=== PATIENT | female | born 1965 | race Caucasian/White ===

== ENCOUNTER 2018-10-25 22:06 | Emergency (ER) | payer MEDICARE, MEDICAID, SELFPAY ==
[2018-10-25 22:10] VITALS: BP 134/71; PULSE 78; RESP 16; TEMP 37; O2SAT 94; BMI 29.3
--- NOTE | 2018-10-25 22:42 | EKG12_ITS ---
Test Reason : CP Blood Pressure : / mmHG Vent. Rate : 083 BPM Atrial Rate : 083 BPM P-R Int : 170 ms QRS Dur : 088 ms QT Int : 400 ms P-R-T Axes : 078 076 103 degrees QTc Int : 470 ms Sinus rhythm with frequent Premature ventricular complexes Nonspecific T wave abnormality Abnormal ECG Confirmed by CHRIS NEWSOME, GODFREY ([id number]), medical editor TORSTEN JOHN ([id number]) on 10/28/2018 1:14:23 PM Referred By: PRASHANT Confirmed By:GODFREY PEREZ MD
--- NOTE | 2018-10-25 22:43 | ED.VIS.GEN ---
History of Present Illness Chief Complaint: Syncope Informant: Patient, Family, Significant Other Onset: Today - JPTA Context: Sudden Onset - w/ emotional distress Timing: Intermittent, Lasts - unk -- relatively brief Quality: felt lightheaded, like I was going to have a seizure, then transient LOC Location: general Current Severity: gone Maximum Severity: Moderate Worsened by: n/a Relieved by: n/a Associated Symptoms: none Narrative: Patient was in a verbal altercation with a neighbor, started feeling lightheaded like she was can have a seizure, as she was very upset and then collapsed. Her was not present at the time to witness this, but states he heard her collapse and came to where she was found her basically sleeping and nonresponsive on the floor, similar to prior seizures and postictal periods. He states within 10 minutes or so she was awake. EMS brought her to the hospital as they were called. States she takes Keppra for seizure disorders, has had breakthrough seizures from emotional distress in the past. She takes her medication twice daily and has had both doses today. No missed doses recently. No sleep deprivation or other illness. She is a smoker and denies using any other drugs. She feels fine now. Prior similar symptoms: Yes Recent Illness/Hospitalization: No Capacity - Capacity Assessment Tool Can the patient make a choice & communicate that choice?: Yes Can the patient understand benefits, risks and alternatives?: Yes Can the patient make a logical, rational choice?: Yes Is the choice the patient makes consistent w/ their values?: Yes Is there an impending, emergent risk to the patient?: No - Past Medical History (1) Seizure disorder Status: Chronic (2) Chronic back pain Status: Chronic (3) History of hypercholesterolemia Status: Chronic (4) Hx of coronary artery disease Status: Chronic Comment: Status post CABG in 2007; following up with Dr. Gallardo (5) Hypertension Status: Chronic Past Medical History - Allergies and Home Meds Allergies/Adverse Reactions: Allergies codeine Adverse Reaction (Verified 08/22/15 23:53) Vomiting Primary Care Physician: Joseph Ortiz MD [Primary Care Provider] - Surgical History: appendectomy, cholecystectomy, - - Uterine ablation Lives: With Family Smoking Status: Current every day smoker Drugs: None - Family History Maternal Family History: Reports: No pertinent history Paternal Family History: Reports: No pertinent history Review of Systems General: Denies: Chills, Fever, Sweats Eyes: Denies: Visual changes - bilaterally, Diplopia ENT: Denies: Rhinorrhea, Sore throat Cardiovascular: Denies: Chest pain, Palpitations Respiratory: Denies: Dyspnea, Cough, Dyspnea on exertion Gastrointestinal: Denies: Abdominal pain, Nausea, Vomiting, Diarrhea, Melena, Hematochezia Genitourinary: Denies: Dysuria, Hematuria, Frequency Musculoskeletal: Denies: Back pain, Extremity Pain Skin: Denies: Rash, Wounds Neurological: Denies: Headache, Weakness, Numbness Psych: Reports: Anxiety. Denies: Suicidal thoughts Physical Exam Vital Signs/Narrative: Vital Signs Temp Pulse Resp BP Pulse Ox 10/25/18 22:10 98.6 F 78 16 134/71 H 94 Inital Vital Signs reviewed: Yes General: Well nourished, Well developed, No Acute Distress Head: Normocephalic, Atraumatic Eyes: Perrl, EOMI ENT: Moist mucous membranes, No rhinorrhea, TM's clear - w/o HT Neck: Supple - w/ FROM, Nontender Cardiovascular: Regular rate, Regular rhythm, No murmurs Respiratory: No distress, CTA bilaterally, Chest nontender Abdomen: Soft, Nontender, Nondistended, Normal bowel sounds Back: Nontender, Normal Inspection. Negative for: Spinal tenderness Extremities: Nontender, No edema Skin: Normal color, No rash, Trauma - superficial NT linear abrasions left anterior neck Neurological: Alert, Oriented x3, Cranial nerves II-XII grossly intact, Normal Strength, Normal Sensation Psychological: Normal affect, Normal Mood Diagnostic/Tx/Re-eval - EKG Initial EKG Interpretation: Sinus Rhythm, No Acute Injury Pattern, Non-Specific ST Changes, - - PVCs. Prior: Unchanged - Medical Decision Making Patient is recounting detailed history of the argument with her family. She feels fine. There is no evidence of tongue abrasion or laceration, EKG was obtained and shows a couple PVCs but is otherwise unchanged compared with her old EKG. She has had no thoracic symptoms. I offered observation testing but she states none of them drive with regards to her family, and they have a ride right now and she prefers to go home she feels fine she feels there is an obvious reason for what happened. I am okay with that, encouraged to return to the ER for any recurrent seizures in the next 24 hours and she is comfortable with that plan. ED Disposition - Plan for ED Patient: Disposition: Home or Assisted Living Diagnosis: Breakthrough seizure, Seizure disorder Instructions: Seizures and Epilepsy Referrals: Joseph Ortiz MD [Primary Care Provider] - As Needed (return to ER for recurrent seizure within 24 hrs)
[2018-10-25 22:46] VITALS: BP 149/72; PULSE 74; RESP 19; O2SAT 98
== END 2018-10-25 23:26 | disposition home or self-care (01) ==
LOC: ED 23:20
PROVIDERS: Emergency Provider Emergency Medicine; Family Provider Internal Medicine; PCP Internal Medicine
DX: G40.909 Epilepsy, unspecified, not intractable, without status epilepticus (principal); I49.3 Ventricular premature depolarization; M54.9 Dorsalgia, unspecified; G89.29 Other chronic pain; E78.00 Pure hypercholesterolemia, unspecified; I25.10 Atherosclerotic heart disease of native coronary artery without angina pectoris; I10 Essential (primary) hypertension; Z95.1 Presence of aortocoronary bypass graft; Z79.82 Long term (current) use of aspirin; Z79.899 Other long term (current) drug therapy; F17.200 Nicotine dependence, unspecified, uncomplicated
CPT/HCPCS: 93005; 99284; A4216

== ENCOUNTER 2019-05-27 20:41 | Emergency (ER) | payer MEDICARE, SELFPAY ==
[2018-12-13 11:27] VITALS: BMI 29.0
[2019-05-27 20:42] VITALS: BP 147/89; PULSE 72; RESP 16; TEMP 36.4; O2SAT 95; BMI 28.6
--- NOTE | 2019-05-27 21:55 | RAD_ITS ---
STUDY: X-RAY - RIGHT SHOULDER REASON FOR EXAM: Female, 53 years old. FALL. RIGHT SHOULDER PAIN TECHNIQUE: 2 view(s) of the shoulder. COMPARISON: None. FINDINGS: Normal glenohumeral articulation. Normal acromioclavicular joint. Normal acromion. Normal humeral head and visualized proximal humerus. The soft tissue structures are unremarkable. Normal visualized pulmonary apex. Median sternotomy wires with CABG clips and markers. Carotid calcifications. RAD/Shoulder min 2 Views IMPRESSION: No acute osseous injury is evident. Electronically Signed: Kodi Nicholas MD at 22:32 EST Tel , Service support ,
--- NOTE | 2019-05-27 22:49 | RAD_ITS ---
STUDY: X-RAY - UNILATERAL RIBS ( RIGHT ) WITH CHEST REASON FOR EXAM: Female, 53 years old. fall, right rib pain TECHNIQUE - RIBS: 3 view(s) of the ribs. TECHNIQUE - CHEST: Single frontal view of the chest. COMPARISON: 05/01/2015 chest FINDINGS - RIBS: Normal visualized ribs without a demonstrated fracture. FINDINGS - CHEST: Median sternotomy wires with CABG clips and markers. The lungs are clear and expanded. There is no demonstrated pleural abnormality. Normal size heart. Normal mediastinum and vaelrio. Normal visualized pulmonary arteries. Normal visualized aortic arch and descending thoracic aorta. Normal visualized thoracic spine. Normal visualized ribs, clavicles, and shoulders. There is no demonstrated abnormality of the visualized soft tissue structures of the upper abdomen. RAD/Ribs Uni Min 3V w/PA Chest IMPRESSION: RIBS: Normal x-ray examination of the ribs. CHEST: No acute pulmonary findings. Electronically Signed: Kodi Nicholas MD at 23:22 EST Tel , Service support ,
--- NOTE | 2019-05-27 22:55 | RAD_ITS ---
STUDY: X-RAY - RIGHT RADIUS AND ULNA REASON FOR EXAM: Female, 53 years old. fall, right arm pain TECHNIQUE: 2 view(s) of the forearm. COMPARISON: None. FINDINGS: There is no demonstrated soft tissue swelling. Normal visualized radius. Normal visualized ulna. RAD/Forearm 2 Views IMPRESSION: No acute osseous injury is evident. Electronically Signed: Kodi Nicholas MD at 23:16 EST Tel , Service support ,
[2019-05-27] MEDS: Ibuprofen 600 MG Tablet PO (23:13)
--- NOTE | 2019-05-27 23:34 | ED.DCSUM_ITS ---
History of Present Illness Chief Complaint: Fall Informant: Patient Occurred: Today Mechanism/Context: Slip Usually ambulates: Without assistance Narrative: Patient is a 53-year-old female presenting for evaluation after a fall. Patient states she was taking her trash out when she slipped in some mud and fell. Patient landed on cement on her right side. She also states that the full trash can fell on her. She denies any in her head. She denies any loss of consciousness. She is on any anticoagulation. This fall happened at 4 PM, approximately 4-5 hours prior to arrival. Patient is having a hard time moving her right arm because of pain. She states she has a lot of pain in her right ribs underneath her arm when she tries to move it. She denies any numbness or tingling. Patient did take aspirin prior to arrival with no relief of her symptoms. Past Medical History - Allergies and Home Meds Allergies/Adverse Reactions: Allergies oxycodone Allergy (Intermediate, Verified 05/27/19 20:44) Unknown codeine Adverse Reaction (Verified 05/27/19 20:44) Vomiting Primary Care Physician: Joseph Ortiz MD [Primary Care Provider] - Past Medical History: - - Seizure disorder, coronary artery disease, hypertension, hyperlipidemia, chronic back pain Surgical History: appendectomy, cholecystectomy, - - Uterine ablation Smoking Status: Current every day smoker - Family History Maternal Family History: Family History (Last Updated 12/13/18 @ 11:35 by Ingris Waller) Mother Diabetes Hypertension Heart disease Alzheimer's dementia Father Asthma CAD (coronary artery disease) Myocardial infarction Brother Heart disease Cancer Family History: Reports: No pertinent history Paternal Family History: Family History (Last Updated 12/13/18 @ 11:35 by Ingris Waller) Mother Diabetes Hypertension Heart disease Alzheimer's dementia Father Asthma CAD (coronary artery disease) Myocardial infarction Brother Heart disease Cancer Family History: Reports: No pertinent history Review of Systems General: Denies: Chills, Fever, Sweats Eyes: Denies: Visual changes - bilaterally, Diplopia ENT: Denies: Rhinorrhea, Sore throat Cardiovascular: Denies: Chest pain, Palpitations Respiratory: Denies: Dyspnea, Cough, Dyspnea on exertion Gastrointestinal: Denies: Abdominal pain, Nausea, Vomiting, Diarrhea, Melena, Hematochezia Genitourinary: Denies: Dysuria, Hematuria, Frequency Musculoskeletal: Reports: Extremity Pain - Right arm and shoulder. Denies: Back pain Skin: Denies: Rash, Wounds Neurological: Denies: Headache, Weakness, Numbness Physical Exam Vital Signs/Narrative: Vital Signs Temp Pulse Resp BP Pulse Ox 05/27/19 20:42 97.5 F L 72 16 147/89 H 95 Inital Vital Signs reviewed: Yes General: Well nourished, Well developed Head: Normocephalic, Atraumatic Eyes: Perrl, EOMI ENT: TM's clear, No hemotympanum or drainage, No trauma Neck: Nontender, Full ROM Cardiovascular: Regular rate, Regular rhythm, No murmurs Respiratory: No distress, CTA bilaterally, Chest tenderness - Right sided, mid axillary line, - - No deformity, flail chest or crepitus Abdomen: Soft, Nontender, Nondistended, Normal bowel sounds Back: Paraspinal Tenderness - Thoracic right. Negative for: Spinal Tenderness Extremeties: Right shoulder?diffuse tenderness, hard to localize to any spot, pain with passive and active range of motion. Diminished active range of motion secondary to pain. Right elbow nontender, no deformity, normal range of motion. Right forearm?the middle third patient does have diffuse tenderness to palpation with no obvious deformity or significant soft tissue swelling. Right wrist no tenderness, normal range of motion, no snuffbox tenderness Skin: Normal color, No rash Neurological: Alert, Oriented x3, Cranial nerves II-XII grossly intact, Normal Strength, Normal Sensation Psychological: Normal affect Diagnostic/Tx/Re-eval Clinical Impression(s) from Imaging Studies Shoulder X-Ray 05/27/19 21:55 IMPRESSION: No acute osseous injury is evident. Electronically Signed: Kodi Nicholas MD at 22:32 EST Tel , Service support , Ribs w/Chest X-Ray 05/27/19 22:49 IMPRESSION: RIBS: Normal x-ray examination of the ribs. CHEST: No acute pulmonary findings. Electronically Signed: Kodi Nicholas MD at 23:22 EST Tel , Service support , Forearm X-Ray 05/27/19 22:55 IMPRESSION: No acute osseous injury is evident. Electronically Signed: Kodi Nicholas MD at 23:16 EST Tel , Service support , - Medical Decision Making Patient is evaluated after mechanical fall that occurred earlier today. She has worsening right shoulder pain. Patient has a lot of soft tissue pain diffusely of her back and shoulder. It is difficult to do good physical exam of the rotator cuff because of her pain and tenderness. She does not have any obvious fractures or dislocations. Likely these are all contusions and no muscle spasms . Patient is counseled that she could have a rotator cuff injury from her fall and she will need to follow-up with orthopedics if this is there. It is too soon to tell. She is given Motrin for pain in the ER. She is urged home with a course of Motrin and Flexeril. She did not hit her head. She has a normal neurologic exam. Patient is counseled on signs and symptoms requiring return to the emergency room. Patient verbalizes agreement and understand this plan. Patient discharged home in stable and improved condition. ED Disposition - Plan for ED Patient: Disposition: Home or Assisted Living Diagnosis: Right shoulder injury Instructions: FALL, Mechanical, Shoulder Contusion Prescriptions: cycloBENZAPRine HCl [Flexeril] 10 mg PO TID PRN PRN #15 tab PRN Reason: Muscle Spasm Prescription Printed Ibuprofen [Motrin] 600 mg PO Q6H PRN PRN #20 tab PRN Reason: Pain Score 1-10/10 Prescription Printed Referrals: Joseph Ortiz MD [Primary Care Provider] - Charles Mccormack DO [STAFF PHYSICIAN] -
== END 2019-05-27 23:44 | disposition home or self-care (01) ==
PROVIDERS: Emergency Provider Emergency Medicine; PCP Internal Medicine
DX: S49.91XA Unspecified injury of right shoulder and upper arm, initial encounter (principal); W01.0XXA Fall on same level from slipping, tripping and stumbling without subsequent striking against object, initial encounter; Y93.E9 Activity, other interior property and clothing maintenance; Y92.9 Unspecified place or not applicable; Y99.9 Unspecified external cause status; I25.10 Atherosclerotic heart disease of native coronary artery without angina pectoris; I10 Essential (primary) hypertension; E78.5 Hyperlipidemia, unspecified; M54.9 Dorsalgia, unspecified; G89.29 Other chronic pain; F17.200 Nicotine dependence, unspecified, uncomplicated; Z79.82 Long term (current) use of aspirin; Z79.899 Other long term (current) drug therapy; Z88.5 Allergy status to narcotic agent; Z90.49 Acquired absence of other specified parts of digestive tract
CPT/HCPCS: 71101; 73030; 73090; 99283

== ENCOUNTER 2020-07-08 11:18 | Outpatient (RCR) | payer MEDICARE, SELFPAY ==
[2020-07-08] MEDS: COVID-19 VACC, MRNA(PFIZER)/PF 30 MCG/0.3 ML SYRINGE IM (11:59)
[2020-07-29] MEDS: COVID-19 VACC, MRNA(PFIZER)/PF 30 MCG/0.3 ML SYRINGE IM (11:55)
== END 2020-07-08 23:59 ==
LOC: IMMUN 11:18
PROVIDERS: PCP Internal Medicine; Visit Provider Family Medicine
DX: Z23 Encounter for immunization (principal)
CPT/HCPCS: 0001A; 0002A; 91300

== ENCOUNTER 2020-12-05 21:10 | Emergency (ER) | payer MEDICARE, SELFPAY ==
[2020-12-05 21:11] VITALS: BP 123/90; PULSE 81; RESP 18; TEMP 36.6; O2SAT 96; BMI 27.4
--- NOTE | 2020-12-05 22:31 | EX.ED.DYSGE1 ---
HPI History of Present Illness Chief Complaint: Nosebleed Narrative Narrative: 54-year-old female presenting with epistaxis which occurred this morning when she woke up. She states it took a considerable amount time to get this bleeding controlled out of her right nares. Patient had a return of the nosebleed later in the day. Patient states she just lost her and was at a out in the sun. She does report crying and blowing her nose. This was yesterday. Patient states is not on any blood thinners except for aspirin. She denies any digital trauma. Patient's daughter states she is an COMPANY [employer] and checked her blood pressure earlier and it was elevated but does not recall the number. Here in the ED it is normalized. Patient has no return of bleeding currently. PFSH PFSH Medical History Abnormal EKG Atherosclerosis of coronary artery of [place] heart without angina pectoris Chest pain Chronic back pain Collagenous colitis DDD (degenerative disc disease), lumbar Depression with anxiety Essential hypertension Hyperlipidemia Seizures Syncope and collapse Tobacco use Home Medications aspirin 81 mg PO DAILY@0800 06/07/13 [History Last Taken 10/25/18] nitroglycerin 0.4 mg SUBLINGUAL Q5M PRN 06/07/13 [History Last Taken 07/31/16] albuterol sulfate 90 mcg/actuation aerosol inhaler 2 puff INHALATION Q6H 12/12/18 [History Last Taken Unknown] amlodipine 5 mg tablet 5 mg PO DAILY 12/12/18 [History Last Taken Unknown] citalopram 40 mg tablet 40 mg PO DAILY 12/12/18 [History Last Taken Unknown] dicyclomine 10 mg capsule 10 mg PO 4X/DAY PRN cap 12/12/18 [History Last Taken Unknown] levetiracetam 1,000 mg tablet 1,000 mg PO BID 12/12/18 [History Last Taken Unknown] metoprolol succinate 100 mg tablet,extended release 24 hr 100 mg PO DAILY 12/12/18 [History Last Taken Unknown] pantoprazole 40 mg tablet,delayed release 40 mg PO DAILY 12/12/18 [History Last Taken Unknown] isosorbide mononitrate 30 mg tablet,extended release 24 hr 30 mg PO DAILY #90 tab 12/13/18 [Rx Last Taken Unknown] atorvastatin 40 mg tablet 40 mg PO QHS #90 tab 01/20/19 [Rx Last Taken Unknown] cyclobenzaprine 10 mg PO TID PRN PRN #15 tab 05/27/19 [Rx Last Taken Unknown] ibuprofen 600 mg PO Q6H PRN PRN #20 tab 05/27/19 [Rx Last Taken Unknown] lisinopril 20 mg tablet 20 mg PO BID #180 tab 12/11/19 [Rx Last Taken Unknown] Allergy/AdvReac Type Severity Reaction Status Date / Time oxycodone Allergy Intermediate Unknown Verified 12/05/20 21:13 codeine AdvReac Vomiting Verified 12/05/20 21:13 Family History Mother , Age 78 Diabetes Hypertension Heart disease Alzheimer's dementia Father , Age 57 Asthma CAD (coronary artery disease) Myocardial infarction Brother , 56 Heart disease Ischemic Cancer pancreatic Surgical History History of appendectomy History of cholecystectomy History of coronary artery bypass graft History of endometrial ablation History of tubal ligation Social History Smoking Status: Current every day smoker tobacco type: cigarettes alcohol intake: never substance use type: does not use caffeine: Yes Type: carbonated beverages Number of servings: 12 ROS ROS ED Constitutional Constitutional ED: Denies chills or fever(s) Eyes Eyes: Denies blurry vision or diplopia ENT ENT ED: Reports other Details: Epistaxis resolved ; Denies sore throat Cardiovascular Cardiovascular: Denies chest pain Respiratory/Chest Respiratory/Chest: Denies cough or dyspnea Gastrointestinal Gastrointestinal: Denies abdominal pain, diarrhea, nausea or vomiting Genitourinary Genitourinary ED: Denies dysuria or hematuria Musculoskeletal Musculoskeletal: Denies arthralgias or myalgias Integumentary Denies Abrasions or rash Neurologic Neurologic: Denies headache(s) EXAM Physical Exam Const Vital Signs: 12/05/20 21:11 Temperature 97.9 F Temperature Source Temporal Pulse Rate 81 Respiratory Rate 18 Blood Pressure 123/90 H Blood Pressure Mean 101 Pulse Ox 96 Oxygen Delivery Method Room Air Positive well nourished General Appearance ED: NAD HEENT Reports moist mucous membranes HEENT Narrative: Nares are patent. No blood seen in the nares bilaterally. Negative for trauma Eyes Negative for PERRL or EOMs intact bilaterally Resp normal respiratory effort and clear to auscultation bilaterally Neuro oriented x3 and CN's II-XII intact bilaterally Sensorium / Orientation: alert Psych mental status grossly normal Skin no rashes or lesions noted and no wounds MDM MDM MDM Narrative Medical decision making narrative: Patient does not have any active bleeding. Her blood pressure is normalized. She denies any anticoagulation. She is on aspirin daily. Given the patient does not have active bleeding I do not believe she needs nasal packing. I will discharge her home with Afrin. If she has return of bleeding and cannot get this under control she will return to the ED for repeat evaluation. Impression: 1. Epistaxis resolved Discharge Plan Triage Chief Complaint: Nosebleed ED Provider: Juan Novoa Dx/Rx/DC Orders Instructions: Nosebleed Prescriptions: No Action isosorbide mononitrate 30 mg tablet extended release 24 hr 30 mg PO DAILY Qty: 90 RF: 3 levetiracetam 1,000 mg tablet 1,000 mg PO BID RF: 0 pantoprazole 40 mg tablet,delayed release (DR/EC) 40 mg PO DAILY RF: 0 metoprolol succinate 100 mg tablet extended release 24 hr 100 mg PO DAILY RF: 0 amlodipine 5 mg tablet 5 mg PO DAILY RF: 0 dicyclomine 10 mg capsule 10 mg PO 4X/DAY PRN (Reason: Pain Score 1-10/10) RF: 0 citalopram 40 mg tablet 40 mg PO DAILY RF: 0 albuterol sulfate 90 mcg/actuation HFA aerosol inhaler 2 puff INHALATION Q6H RF: 0 aspirin 81 MG tablet 81 mg PO DAILY@0800 RF: 0 nitroglycerin 0.4 MG tablet 0.4 mg sublingual Q5M PRN (Reason: Chest Pain) RF: 0 cyclobenzaprine 10 MG tablet 10 mg PO TID PRN PRN (Reason: Muscle Spasm) Qty: 15 RF: 0 ibuprofen 600 MG tablet 600 mg PO Q6H PRN PRN (Reason: Pain Score 1-10/10) Qty: 20 RF: 0 atorvastatin 40 mg tablet 40 mg PO QHS Qty: 90 RF: 3 lisinopril 20 mg tablet 20 mg PO BID Qty: 180 RF: 3 Primary Care Provider: Joseph Ortiz Referrals: Benjamin Hull MD [STAFF PHYSICIAN] - As Needed Joseph Ortiz MD [Primary Care Provider] - Disposition Disposition: Home, Self Care
[2020-12-05] MEDS: Oxymetazoline 0.05% 1 SPRAY SPRAY.BTL NASAL (22:38)
== END 2020-12-05 22:48 | disposition home or self-care (01) ==
LOC: ED 22:47
PROVIDERS: Emergency Provider Student in an Organized Health Care Education/Training Program; PCP Internal Medicine
DX: R04.0 Epistaxis (principal); I25.10 Atherosclerotic heart disease of native coronary artery without angina pectoris; I10 Essential (primary) hypertension; E78.5 Hyperlipidemia, unspecified; F17.210 Nicotine dependence, cigarettes, uncomplicated; Z79.899 Other long term (current) drug therapy
CPT/HCPCS: 99282

== ENCOUNTER 2020-12-06 10:12 | Emergency (ER) | payer MEDICARE, MEDICAID, SELFPAY ==
[2020-12-05 21:11] VITALS: BMI 27.4
[2020-12-06 10:13] VITALS: BP 144/81; PULSE 64; RESP 20; TEMP 36.4; O2SAT 97; BMI 28.9
--- NOTE | 2020-12-06 10:39 | EX.ED.DYSGE1 ---
HPI History of Present Illness Chief Complaint: Nosebleed Informant: patient Onset/Context/Timing Onset: Yesterday Timing: Intermittent Narrative Narrative: Patient presents secondary to intermittent nosebleed from the right nare. Patient had 2 episodes of nosebleed yesterday. She was seen in the ER last evening but was not bleeding at the time. Patient states this morning her nose started bleeding again and she could not get it stopped. No recent trauma. PFSH PFS Medical History Abnormal EKG Atherosclerosis of coronary artery of [place] heart without angina pectoris Chest pain Chronic back pain Collagenous colitis DDD (degenerative disc disease), lumbar Depression with anxiety Essential hypertension Hyperlipidemia Seizures Syncope and collapse Tobacco use Home Medications aspirin 81 mg PO DAILY@0800 06/07/13 [History Last Taken 10/25/18] nitroglycerin 0.4 mg SUBLINGUAL Q5M PRN 06/07/13 [History Last Taken 07/31/16] albuterol sulfate 90 mcg/actuation aerosol inhaler 2 puff INHALATION Q6H 12/12/18 [History Last Taken Unknown] amlodipine 5 mg tablet 5 mg PO DAILY 12/12/18 [History Last Taken Unknown] citalopram 40 mg tablet 40 mg PO DAILY 12/12/18 [History Last Taken Unknown] dicyclomine 10 mg capsule 10 mg PO 4X/DAY PRN cap 12/12/18 [History Last Taken Unknown] levetiracetam 1,000 mg tablet 1,000 mg PO BID 12/12/18 [History Last Taken Unknown] metoprolol succinate 100 mg tablet,extended release 24 hr 100 mg PO DAILY 12/12/18 [History Last Taken Unknown] pantoprazole 40 mg tablet,delayed release 40 mg PO DAILY 12/12/18 [History Last Taken Unknown] isosorbide mononitrate 30 mg tablet,extended release 24 hr 30 mg PO DAILY #90 tab 12/13/18 [Rx Last Taken Unknown] atorvastatin 40 mg tablet 40 mg PO QHS #90 tab 01/20/19 [Rx Last Taken Unknown] cyclobenzaprine 10 mg PO TID PRN PRN #15 tab 05/27/19 [Rx Last Taken Unknown] ibuprofen 600 mg PO Q6H PRN PRN #20 tab 05/27/19 [Rx Last Taken Unknown] lisinopril 20 mg tablet 20 mg PO BID #180 tab 08/20/20 [Rx Last Taken Unknown] Allergy/AdvReac Type Severity Reaction Status Date / Time oxycodone Allergy Intermediate Unknown Verified 12/05/20 21:13 codeine AdvReac Vomiting Verified 12/05/20 21:13 Family History Mother , Age 78 Diabetes Hypertension Heart disease Alzheimer's dementia Father , Age 57 Asthma CAD (coronary artery disease) Myocardial infarction Brother , 56 Heart disease Ischemic Cancer pancreatic Surgical History History of appendectomy History of cholecystectomy History of coronary artery bypass graft History of endometrial ablation History of tubal ligation Social History Smoking Status: Current every day smoker tobacco type: cigarettes alcohol intake: never substance use type: does not use caffeine: Yes Type: carbonated beverages Number of servings: 12 ROS ROS ED Constitutional Constitutional ED: Denies chills or fever(s) Eyes Eyes: Denies change in vision ENT ENT ED: Reports other Details: Epistaxis right nare ; Denies sore throat Cardiovascular Cardiovascular: Denies chest pain Respiratory/Chest Respiratory/Chest: Denies cough or dyspnea Gastrointestinal Gastrointestinal: Denies abdominal pain, diarrhea, nausea or vomiting Integumentary Denies rash Neurologic Neurologic: Denies headache(s) Allergic/Immunologic Allergic/Immunologic ED: Denies urticaria EXAM Physical Exam Const Vital Signs: 12/06/20 10:13 Temperature 97.6 F L Temperature Source Oral Pulse Rate 64 Respiratory Rate 20 H Blood Pressure 144/81 H Blood Pressure Mean 102 Pulse Ox 97 Oxygen Delivery Method Room Air Positive well nourished and well developed General Appearance ED: well developed HEENT Reports moist mucous membranes HEENT Narrative: Nasal turbinates inflamed. No obvious blood or clot noted on exam. Eyes PERRL and EOMs intact bilaterally Neck supple Resp normal respiratory effort and clear to auscultation bilaterally Cardio regular rate and regular rhythm GI non-tender Palpation: soft Extremity normal to inspection Neuro oriented x3 Sensorium / Orientation: alert Skin no rashes or lesions noted MDM MDM MDM Narrative Medical decision making narrative: Cottonball soaked in maggie's mix is placed in the right nare. This is removed and expandable sponge is placed in the right nare. Patient's had no bleeding in the emergency room. She will be referred to Dr. Benjamin Hull, on-call for ENT. Discharge Plan Triage Chief Complaint: Nosebleed ED Provider: Snow Salazar Dx/Rx/DC Orders Clinical Impression: Epistaxis Instructions: ED Epistaxis (Adult) Prescriptions: No Action isosorbide mononitrate 30 mg tablet extended release 24 hr 30 mg PO DAILY Qty: 90 RF: 3 levetiracetam 1,000 mg tablet 1,000 mg PO BID RF: 0 pantoprazole 40 mg tablet,delayed release (DR/EC) 40 mg PO DAILY RF: 0 metoprolol succinate 100 mg tablet extended release 24 hr 100 mg PO DAILY RF: 0 amlodipine 5 mg tablet 5 mg PO DAILY RF: 0 dicyclomine 10 mg capsule 10 mg PO 4X/DAY PRN (Reason: Pain Score 1-10/10) RF: 0 citalopram 40 mg tablet 40 mg PO DAILY RF: 0 albuterol sulfate 90 mcg/actuation HFA aerosol inhaler 2 puff INHALATION Q6H RF: 0 aspirin 81 MG tablet 81 mg PO DAILY@0800 RF: 0 nitroglycerin 0.4 MG tablet 0.4 mg sublingual Q5M PRN (Reason: Chest Pain) RF: 0 cyclobenzaprine 10 MG tablet 10 mg PO TID PRN PRN (Reason: Muscle Spasm) Qty: 15 RF: 0 ibuprofen 600 MG tablet 600 mg PO Q6H PRN PRN (Reason: Pain Score 1-10/10) Qty: 20 RF: 0 atorvastatin 40 mg tablet 40 mg PO QHS Qty: 90 RF: 3 lisinopril 20 mg tablet 20 mg PO BID Qty: 180 RF: 3 Primary Care Provider: Joseph Ortiz Referrals: Benjamin Hull MD [STAFF PHYSICIAN] - 2 Days Joseph Ortiz MD [Primary Care Provider] - Disposition Disposition: Home, Self Care
[2020-12-06] MEDS: Mixture 30 ML Bottle TOPICAL (11:29)
[2020-12-06 11:41] VITALS: RESP 16
--- NOTE | 2020-12-06 11:42 | ED.RN ---
REVIEWED D/C INSTRUCTIONS, FOLLOW UP CARE, AND S/S THAT WOULD WARRANT A RETURN TO THE ED WITH PT. PT VERBALIZED AN UNDERSTANDING AND DENIES FURTHER QUESTIONS FOR THIS RN. PT SKIN P/W/D, RESP EVEN AND UNLABORED, PT A&OX 3, NO DISTRESS NOTED. PT AMBULATED OUT OF ED, GAIT STEADY.
== END 2020-12-06 11:43 | disposition home or self-care (01) ==
PROVIDERS: Emergency Provider Emergency Medicine; PCP Internal Medicine
DX: R04.0 Epistaxis (principal); F17.210 Nicotine dependence, cigarettes, uncomplicated; I10 Essential (primary) hypertension; I25.10 Atherosclerotic heart disease of native coronary artery without angina pectoris; E78.5 Hyperlipidemia, unspecified; Z95.1 Presence of aortocoronary bypass graft; Z90.49 Acquired absence of other specified parts of digestive tract; Z79.82 Long term (current) use of aspirin
CPT/HCPCS: 99284

== ENCOUNTER 2022-02-11 18:16 | Emergency (ER) | payer MEDICARE, MEDICAID, SELFPAY ==
[2022-02-11 18:17] VITALS: BP 131/92; PULSE 94; RESP 20; TEMP 36.2; O2SAT 95; BMI 27.4
--- NOTE | 2022-02-11 18:54 | ED.VIS.FEGU ---
HPI HPI - Female History of Present Illness Chief Complaint: Complaint Informant: patient Narrative Narrative: Patient presents with vaginal irritation itching and burning. It harley when she urinates but all the burning is external. She is not urinating more. There is no odor. She states this started a couple months ago or more. She had a URI and was coughing a lot. Every time she coughs she urinated. This irritated the external area. She switched to depends which helped. But the area remained irritated. She is continue to shave. She keeps putting multiple different creams on the area. She states they all burned a lot but she keeps putting them on. She was seen today in urgent care. They did an exam. She was started on Valtrex. In mid November she saw her MEDICAL SALES SPECIALIST who did Pap smear and exam. She comes in because it still burning despite starting Valtrex this afternoon. PFSH PFSH Medical History Abnormal EKG Atherosclerosis of coronary artery of [place] heart without angina pectoris Chest pain Chronic back pain Collagenous colitis DDD (degenerative disc disease), lumbar Depression with anxiety Essential hypertension Hyperlipidemia Seizures Syncope and collapse Tobacco use Home Medications aspirin 81 mg tablet,delayed release 81 mg PO DAILY@0800 06/07/13 [History Last Taken 10/25/18] nitroglycerin 0.4 mg sublingual tablet 0.4 mg sublingual Q5M PRN Chest Pain 06/07/13 [History Last Taken 07/31/16] albuterol sulfate 90 mcg/actuation aerosol inhaler 2 puff inhalation Q6H 12/12/18 [History Last Taken Unknown] amlodipine 5 mg tablet 5 mg PO DAILY 12/12/18 [History Last Taken Unknown] citalopram 40 mg tablet 40 mg PO DAILY 12/12/18 [History Last Taken Unknown] dicyclomine 10 mg capsule 10 mg PO 4X/DAY PRN Pain Score 1-01/3012/12/18 [History Last Taken Unknown] levetiracetam 1,000 mg tablet 1,000 mg PO BID 12/12/18 [History Last Taken Unknown] metoprolol succinate 100 mg tablet,extended release 24 hr 100 mg PO DAILY 12/12/18 [History Last Taken Unknown] pantoprazole 40 mg tablet,delayed release 40 mg PO DAILY 12/12/18 [History Last Taken Unknown] isosorbide mononitrate 30 mg tablet,extended release 24 hr 30 mg PO DAILY #90 tabs 12/13/18 [Rx Last Taken Unknown] atorvastatin 40 mg tablet 40 mg PO QHS #90 tabs 01/20/19 [Rx Last Taken Unknown] cyclobenzaprine 10 mg tablet 10 mg PO TID PRN PRN Muscle Spasm #15 tabs 05/27/19 [Rx Last Taken Unknown] ibuprofen 600 mg tablet 600 mg PO Q6H PRN PRN Pain Score 1-10/10 #20 tabs 05/27/19 [Rx Last Taken Unknown] lisinopril 20 mg tablet 20 mg PO BID #180 tabs 12/08/20 [Rx Last Taken Unknown] Allergy/AdvReac Type Severity Reaction Status Date / Time oxycodone Allergy Intermediate Unknown Verified 02/11/22 18:16 codeine AdvReac Vomiting Verified 02/11/22 18:16 Family History Mother , Age 78 Diabetes Hypertension Heart disease Alzheimer's dementia Father , Age 57 Asthma CAD (coronary artery disease) Myocardial infarction Brother , 56 Heart disease Ischemic Cancer pancreatic Surgical History History of appendectomy History of cholecystectomy History of coronary artery bypass graft History of endometrial ablation History of tubal ligation Social History Smoking Status: Current every day smoker tobacco type: cigarettes alcohol intake: never substance use type: does not use caffeine: Yes Type: carbonated beverages Number of servings: 12 ROS ROS ED Constitutional Constitutional ED: Denies chills or fever(s) ENT ENT ED: Denies rhinorrhea or sore throat Respiratory/Chest Respiratory/Chest: Denies cough or dyspnea Gastrointestinal Gastrointestinal: Denies diarrhea, nausea or vomiting Genitourinary Genitourinary ED: Reports other Details: see HPI Musculoskeletal Musculoskeletal: Denies arthralgias or myalgias Integumentary Reports rash Neurologic Neurologic: Denies paresthesias Endocrine Endocrinology: Denies polydipsia or polyuria Hematologic/Lymphatic Hematologic/Lymphatic: Denies easy bleeding or easy bruising Allergic/Immunologic Allergic/Immunologic ED: Denies urticaria EXAM Physical Exam Const Vital Signs: 02/11/22 18:17 Temperature 97.2 F L Temperature Source Temporal Pulse Rate 94 Respiratory Rate 20 H Blood Pressure 131/92 H Blood Pressure Mean 105 Pulse Ox 95 Oxygen Delivery Method Room Air Positive well nourished and well developed General Appearance ED: well developed and NAD HEENT HEENT Narrative: No thrush Neck no lymphadenopathy Resp normal respiratory effort and clear to auscultation bilaterally Cardio regular rate and regular rhythm GI normal to inspection, nondistended, normoactive bowel sounds, soft to palpation, non-tender and non-distended Palpation: Negative for tender or guarding Narrative: Patient does have some mild erythema. No discharge. She does have A&E ointment already on so this makes a little bit difficult. No mass. No abscess. Back/Spine no CVA tenderness Extremity normal to inspection General Extremety ED: Negative for edema or tenderness General Extremity: Negative for edema Neuro Sensorium / Orientation: alert Skin Skin Narrative: See above. MDM MDM MDM Narrative Medical decision making narrative: Patient's urine shows some red cells white cells but also squamous epithelial cells. I will send this for culture but not treated. Her blood glucose was 105. I think the patient do not go home. She just started A&E ointment and bowel cycle of year today. She should continue on those medications. She should follow-up with her private physician for repeat evaluation. She wanted me to explain all this to her boyfriend. However her phone was down and I could not do that Lab Data Attestation: I reviewed the patient's lab results. Labs: Laboratory Results - last 24 hr 02/11/22 02/11/22 19:04 19:39 Urine Color Yellow Urine Clarity Clear Urine pH 6.0 Ur Specific [place] 1.020 Urine Protein 30 H Urine Glucose (UA) Normal Urine Ketones 5 H Urine Occult Blood 25 H Urine Nitrite Negative Urine Bilirubin Negative Urine Urobilinogen 1 H Ur Leukocyte Esterase 500 H Urine RBC 5-10 SEEN Urine WBC 5-10 SEEN Ur Squamous Epith Cells 5-10 SEEN Urine Bacteria 1+ Urine Mucus 3+ POC Glucose 105 Discharge Plan Triage Chief Complaint: Complaint ED Provider: Angelo Madison Dx/Rx/DC Orders Clinical Impression: Labia irritation Instructions: Vaginal Infection Prescriptions: No Action isosorbide mononitrate 30 mg tablet extended release 24 hr 30 mg PO DAILY Qty: 90 3RF levetiracetam 1,000 mg tablet 1,000 mg PO BID pantoprazole 40 mg tablet,delayed release (DR/EC) 40 mg PO DAILY metoprolol succinate 100 mg tablet extended release 24 hr 100 mg PO DAILY amlodipine 5 mg tablet 5 mg PO DAILY dicyclomine 10 mg capsule 10 mg PO 4X/DAY PRN (Reason: Pain Score 1-10/10) citalopram 40 mg tablet 40 mg PO DAILY albuterol sulfate 90 mcg/actuation HFA aerosol inhaler 2 puff INHALATION Q6H aspirin 81 MG tablet 81 mg PO DAILY@0800 Label Comments: HEART HEALTH nitroglycerin 0.4 MG tablet 0.4 mg sublingual Q5M PRN (Reason: Chest Pain) Label Comments: CHEST PAIN cyclobenzaprine 10 MG tablet 10 mg PO TID PRN PRN (Reason: Muscle Spasm) Qty: 15 0RF ibuprofen 600 MG tablet 600 mg PO Q6H PRN PRN (Reason: Pain Score 1-10/10) Qty: 20 0RF atorvastatin 40 mg tablet 40 mg PO QHS Qty: 90 3RF lisinopril 20 mg tablet 20 mg PO BID Qty: 180 3RF Primary Care Provider: Joseph Ortiz Referrals: Joseph Ortiz MD [Primary Care Provider] - 3-5 Days if not improving Disposition Disposition: Home, Self Care
[2022-02-11 19:25] LABS: Bedside Glucose 105 mg/dL (74-106)
[2022-02-11 19:50] LABS: Color, Urine Yellow (Yellow); Glucose, Dipstick Normal (Normal); Ketone-Dipstick 5 mg/dl (Negative); Leukocyte Esterase-Dipstick 500 /ul (Negative); Nitrite-Dipstick Negative (Negative); Occult Blood-Urine 25 /ul (Negative); Protein-Dipstick 30 mg/dl (Negative); Urine Bilirubin Dipstick Negative (Negative); Urine Clarity Clear (Clear); Urine Urobilinogen 1 mg/dl (Normal)
[2022-02-11 20:01] LABS: Bacteria 1+ /hpf (None Seen); Mucous, Urine 3+ /hpf (<or=2+); Red Blood Cells-Urine 5-10 SEEN /hpf (0-5); Squamous Epithelial Cells - UA 5-10 SEEN /hpf (5-10); White Blood Cells 5-10 SEEN /hpf (0-5)
[2022-02-11 20:16] VITALS: RESP 16
[2022-02-11 20:22] VITALS: RESP 16
== END 2022-02-11 20:44 | disposition home or self-care (01) ==
PROVIDERS: Emergency Provider Emergency Medicine; PCP Internal Medicine; Visit Provider Emergency Medicine
DX: N89.8 Other specified noninflammatory disorders of vagina (principal); L29.9 Pruritus, unspecified; R30.9 Painful micturition, unspecified; I25.10 Atherosclerotic heart disease of native coronary artery without angina pectoris; I10 Essential (primary) hypertension; E78.5 Hyperlipidemia, unspecified; M54.9 Dorsalgia, unspecified; G89.29 Other chronic pain; F32.A Depression, unspecified; F41.9 Anxiety disorder, unspecified; F17.210 Nicotine dependence, cigarettes, uncomplicated; Z79.82 Long term (current) use of aspirin; Z79.899 Other long term (current) drug therapy; Z95.1 Presence of aortocoronary bypass graft
CPT/HCPCS: 81001; 82962; 99282

== ENCOUNTER 2022-04-05 20:53 | Emergency (ER) | payer MEDICARE, MEDICAID, SELFPAY ==
[2022-04-05 20:54] VITALS: BP 176/99; PULSE 88; RESP 15; TEMP 36.3; O2SAT 96; BMI 29.0
[2022-04-05] MEDS: Acyclovir 800 MG Tablet PO (21:41)
[2022-04-05] MEDS: DiphenhydrAMINE 25 MG Capsule 50 MG PO (21:41)
[2022-04-05 22:07] LABS: Mucous, Urine 0 SEEN /hpf (<or=2+)
[2022-04-05 22:13] LABS: Glucose, Dipstick Normal (Normal); Ketone-Dipstick Negative (Negative); Leukocyte Esterase-Dipstick 500 /ul (Negative); Nitrite-Dipstick Negative (Negative); Occult Blood-Urine 25 /ul (Negative); Protein-Dipstick Negative (Negative); Urine Bilirubin Dipstick Negative (Negative); Urine Urobilinogen Normal (Normal); Urine pH 6.5 (5.0 - 8.0)
[2022-04-05 22:21] LABS: Color, Urine Yellow (Yellow); Urine Clarity Sl Cldy (Clear)
[2022-04-05 22:22] LABS: Amorphous Sediment 1+ URATE; Bacteria RARE /hpf (None Seen); Red Blood Cells-Urine 0-5 SEEN /hpf (0-5); Squamous Epithelial Cells - UA 5-10 SEEN /hpf (5-10); White Blood Cells 25-50 SEEN /hpf (0-5)
--- NOTE | 2022-04-05 22:41 | ED.VIS.FEGU ---
HPI HPI - Female History of Present Illness Chief Complaint: Female C/O PFSH PFSH Medical History Abnormal EKG Atherosclerosis of coronary artery of [place] heart without angina pectoris Chest pain Chronic back pain Collagenous colitis DDD (degenerative disc disease), lumbar Depression with anxiety Essential hypertension Hyperlipidemia Seizures Syncope and collapse Tobacco use Home Medications aspirin 81 mg tablet,delayed release 81 mg PO DAILY@0800 06/07/13 [History Last Taken 10/25/18] nitroglycerin 0.4 mg sublingual tablet 0.4 mg sublingual Q5M PRN Chest Pain 06/07/13 [History Last Taken 07/31/16] albuterol sulfate 90 mcg/actuation aerosol inhaler 2 puff inhalation Q6H 12/12/18 [History Last Taken Unknown] amlodipine 5 mg tablet 5 mg PO DAILY 12/12/18 [History Last Taken Unknown] citalopram 40 mg tablet 40 mg PO DAILY 12/12/18 [History Last Taken Unknown] dicyclomine 10 mg capsule 10 mg PO 4X/DAY PRN Pain Score 1-01/3012/12/18 [History Last Taken Unknown] levetiracetam 1,000 mg tablet 1,000 mg PO BID 12/12/18 [History Last Taken Unknown] metoprolol succinate 100 mg tablet,extended release 24 hr 100 mg PO DAILY 12/12/18 [History Last Taken Unknown] pantoprazole 40 mg tablet,delayed release 40 mg PO DAILY 12/12/18 [History Last Taken Unknown] isosorbide mononitrate 30 mg tablet,extended release 24 hr 30 mg PO DAILY #90 tabs 12/13/18 [Rx Last Taken Unknown] atorvastatin 40 mg tablet 40 mg PO QHS #90 tabs 01/20/19 [Rx Last Taken Unknown] cyclobenzaprine 10 mg tablet 10 mg PO TID PRN PRN Muscle Spasm #15 tabs 05/27/19 [Rx Last Taken Unknown] ibuprofen 600 mg tablet 600 mg PO Q6H PRN PRN Pain Score 1-01/30 #20 tabs 05/27/19 [Rx Last Taken Unknown] lisinopril 20 mg tablet 20 mg PO BID #180 tabs 12/08/20 [Rx Last Taken Unknown] Allergy/AdvReac Type Severity Reaction Status Date / Time oxycodone Allergy Intermediate Unknown Verified 04/05/22 20:54 codeine AdvReac Vomiting Verified 04/05/22 20:54 Family History Mother , Age 78 Diabetes Hypertension Heart disease Alzheimer's dementia Father , Age 57 Asthma CAD (coronary artery disease) Myocardial infarction Brother , 56 Heart disease Ischemic Cancer pancreatic Surgical History History of appendectomy History of cholecystectomy History of coronary artery bypass graft History of endometrial ablation History of tubal ligation Social History Smoking Status: Current every day smoker tobacco type: cigarettes alcohol intake: never substance use type: does not use caffeine: Yes Type: carbonated beverages Number of servings: 12 EXAM Physical Exam Const Vital Signs: 04/05/22 20:54 Temperature 97.3 F L Temperature Source Temporal Pulse Rate 88 Respiratory Rate 15 Blood Pressure 176/99 H Blood Pressure Mean 124 Pulse Ox 96 Oxygen Delivery Method Room Air MDM MDM MDM Narrative Medical decision making narrative: Patient was given a dose of acyclovir and Benadryl here to help control her symptoms. Urinalysis obtained. Lab Data Labs: Laboratory Results - last 24 hr 04/05/22 22:00 Urine Color Yellow Urine Clarity Sl Cldy Urine pH 6.5 Ur Specific [place] 1.010 Urine Protein Negative Urine Glucose (UA) Normal Urine Ketones Negative Urine Occult Blood 25 H Urine Nitrite Negative Urine Bilirubin Negative Urine Urobilinogen Normal Ur Leukocyte Esterase 500 H Urine RBC 0-5 SEEN Urine WBC 25-50 SEEN Ur Squamous Epith Cells 5-10 SEEN Amorphous Sediment 1+ URATE Urine Bacteria RARE Urine Mucus 0 SEEN Treatment and Re-Evaluation Narrative: Urinalysis reveals rare bacteria but 25-50 white cells and 5-10 epithelial cells. Nitrites are negative. This will be sent for urine culture. Patient is following up with gynecology tomorrow but does not know who is she is seeing. I would not write her any prescriptions tonight but have her follow-up tomorrow if there is no confusion as to which prescription she is to be filling. Return instructions given. Discharge Plan Triage Chief Complaint: Female C/O ED Provider: Snow Salazar Dx/Rx/DC Orders Clinical Impression: Labia irritation, HSV (herpes simplex virus) infection Instructions: ED Herpes Genitalis, Hsv: Type Ii Prescriptions: No Action isosorbide mononitrate 30 mg tablet extended release 24 hr 30 mg PO DAILY Qty: 90 3RF levetiracetam 1,000 mg tablet 1,000 mg PO BID pantoprazole 40 mg tablet,delayed release (DR/EC) 40 mg PO DAILY metoprolol succinate 100 mg tablet extended release 24 hr 100 mg PO DAILY amlodipine 5 mg tablet 5 mg PO DAILY dicyclomine 10 mg capsule 10 mg PO 4X/DAY PRN (Reason: Pain Score 1-10/10) citalopram 40 mg tablet 40 mg PO DAILY albuterol sulfate 90 mcg/actuation HFA aerosol inhaler 2 puff INHALATION Q6H aspirin 81 MG tablet 81 mg PO DAILY@0800 Label Comments: HEART HEALTH nitroglycerin 0.4 MG tablet 0.4 mg sublingual Q5M PRN (Reason: Chest Pain) Label Comments: CHEST PAIN cyclobenzaprine 10 MG tablet 10 mg PO TID PRN PRN (Reason: Muscle Spasm) Qty: 15 0RF ibuprofen 600 MG tablet 600 mg PO Q6H PRN PRN (Reason: Pain Score 1-10/10) Qty: 20 0RF atorvastatin 40 mg tablet 40 mg PO QHS Qty: 90 3RF lisinopril 20 mg tablet 20 mg PO BID Qty: 180 3RF Primary Care Provider: Joseph Ortiz Referrals: Joseph Ortiz MD [Primary Care Provider] - Activity Restrictions/Additional Instructions: Please follow-up with gynecology tomorrow as scheduled. Disposition Disposition: Home, Self Care
== END 2022-04-05 22:51 | disposition home or self-care (01) ==
PROVIDERS: Emergency Provider Emergency Medicine; PCP Internal Medicine; Visit Provider Emergency Medicine
DX: B00.9 Herpesviral infection, unspecified (principal); I25.10 Atherosclerotic heart disease of native coronary artery without angina pectoris; I10 Essential (primary) hypertension; E78.5 Hyperlipidemia, unspecified; F17.210 Nicotine dependence, cigarettes, uncomplicated; N89.8 Other specified noninflammatory disorders of vagina
CPT/HCPCS: 81001; 87077; 87086; 87088; 87186; 99283

== ENCOUNTER 2022-06-17 23:39 | Emergency (ER) | payer MEDICARE, MEDICAID, SELFPAY ==
[2022-06-17 23:40] VITALS: BP 127/94; PULSE 81; RESP 27; TEMP 36.4; O2SAT 97; BMI 28.7
--- NOTE | 2022-06-18 00:05 | EDS_ITS ---
HPI History of Present Illness Chief Complaint: Shortness of Breath Informant: patient Onset/Context/Timing Onset: Weeks (2-3) Context: gradual Timing: Continuous Quality: Positive for Wheezing Worsened by: Nothing Relieved by: - (Fresh air) Associated Symptoms Negative for cough, rhinorrhea, post nasal drip, ear pain, fever, sore throat, chills or sweats Chest Pain: Positive for Dull and Aching Narrative Narrative: Presents with shortness of breath that has been getting worse over the past 2 to 3 weeks. Patient states it is gradually gotten worse. Patient states she started with a headache 3 weeks ago. Patient states she has been doing a lot of repetitive motion with her left arm cleaning lance. Patient thinks she pulled a muscle in her chest. Patient describes her pain as aching. Patient states it is better when she goes out in the fresh air. Patient states nothing makes it worse. Patient states she feels like she is wheezing. Patient denies any fevers or chills. Patient denies any cough or sore throat. PFSH PFSH Medical History Atherosclerosis of coronary artery of [place] without angina pectoris Chronic back pain Collagenous colitis DDD (degenerative disc disease), lumbar Depression with anxiety Essential hypertension Hyperlipidemia Seizures Syncope and collapse Tobacco use Home Medications aspirin 81 mg tablet,delayed release 81 mg PO DAILY@0800 06/07/13 [History Last Taken 10/25/18] nitroglycerin 0.4 mg sublingual tablet 0.4 mg sublingual Q5M PRN Chest Pain 06/07/13 [History Last Taken 07/31/16] albuterol sulfate 90 mcg/actuation aerosol inhaler 2 puff inhalation Q6H 12/12/18 [History Last Taken Unknown] amlodipine 5 mg tablet 5 mg PO DAILY 12/12/18 [History Last Taken Unknown] citalopram 40 mg tablet 40 mg PO DAILY 12/12/18 [History Last Taken Unknown] dicyclomine 10 mg capsule 10 mg PO 4X/DAY PRN Pain Score 1-01/3012/12/18 [History Last Taken Unknown] levetiracetam 1,000 mg tablet 1,000 mg PO BID 12/12/18 [History Last Taken Unknown] metoprolol succinate 100 mg tablet,extended release 24 hr 100 mg PO DAILY 12/12/18 [History Last Taken Unknown] pantoprazole 40 mg tablet,delayed release 40 mg PO DAILY 12/12/18 [History Last Taken Unknown] atorvastatin 40 mg tablet 40 mg PO QHS #90 tabs 01/20/19 [Rx Last Taken Unknown] lisinopril 20 mg tablet 20 mg PO BID #180 tabs 12/08/20 [Rx Last Taken Unknown] valacyclovir 1 gram tablet 1,000 mg PO DAILY 06/17/22 [History Last Taken Unknown] Allergy/AdvReac Type Severity Reaction Status Date / Time oxycodone Allergy Intermediate Unknown Verified 04/05/22 20:54 codeine AdvReac Vomiting Verified 04/05/22 20:54 Family History Mother , Age 78 Diabetes Hypertension Heart disease Alzheimer's dementia Father , Age 57 Asthma CAD (coronary artery disease) Myocardial infarction Brother , 56 Heart disease Ischemic Cancer pancreatic Surgical History History of appendectomy History of cholecystectomy History of coronary artery bypass graft History of endometrial ablation History of tubal ligation Social History Smoking Status: Current every day smoker tobacco type: cigarettes alcohol intake: never substance use type: does not use caffeine: Yes Type: carbonated beverages Number of servings: 12 ROS ROS ED Constitutional Constitutional ED: Denies chills or fever(s) Eyes Eyes: Denies blurry vision or change in vision ENT ENT ED: Denies rhinorrhea or sore throat Cardiovascular Cardiovascular: Reports chest pain; Denies palpitations Respiratory/Chest Respiratory/Chest: Reports dyspnea; Denies cough Gastrointestinal Gastrointestinal: Denies nausea or vomiting Genitourinary Genitourinary ED: Denies dysuria or hematuria Musculoskeletal Musculoskeletal: Reports back pain; Denies neck pain Integumentary Denies abscess or rash Neurologic Neurologic: Reports headache(s); Denies weakness Allergic/Immunologic Allergic/Immunologic ED: Denies mouth swelling or urticaria EXAM Physical Exam Const Vital Signs: 06/17/22 23:40 06/17/22 23:46 06/18/22 00:13 Temperature 97.6 F L Temperature Source Temporal Pulse Rate 81 Respiratory Rate 27 H Respiratory Effort Short of Breath Respiratory Depth Deep Respiratory Pattern Tachypnea Blood Pressure 127/94 H Blood Pressure Mean 105 Pulse Ox 97 Oxygen Delivery Method Room Air Room Air Room Air 06/18/22 01:12 06/18/22 02:00 Temperature 97.4 F L Temperature Source Temporal Pulse Rate 73 77 Respiratory Rate 15 20 H Respiratory Effort Respiratory Depth Respiratory Pattern Blood Pressure 152/74 H 144/83 H Blood Pressure Mean 100 103 Pulse Ox 92 94 Oxygen Delivery Method Room Air Room Air Positive well nourished and well developed General Appearance ED: well developed HEENT Reports moist mucous membranes Neck supple and no JVD Resp normal respiratory effort and clear to auscultation bilaterally Cardio regular rate, regular rhythm and no murmurs GI normal to inspection, nondistended, normoactive bowel sounds and non-tender Palpation: soft Extremity normal to inspection General Extremety ED: Negative for edema or tenderness General Extremity: Negative for edema Neuro oriented x3, CN's II-XII intact bilaterally and no sensory deficits noted Sensorium / Orientation: alert Motor Exam: strength 5/5 throughout Psych mental status grossly normal Skin no rashes or lesions noted MDM MDM MDM Narrative Medical decision making narrative: Differential diagnosis includes pneumonia, cardiac ischemia, cardiac dysrhythmia, COPD exacerbation, pneumothorax, congestive heart failure, and anxiety. Patient is PERC negative and has no PE risk factors. I do not think this is from pulmonary embolism. Chest x-ray will be obtained to assess for pneumonia and pneumothorax. EKG will be obtained to assess for cardiac ischemia and cardiac dysrhythmia. CBC will be obtained to assess for anemia and leukocytosis. Basic metabolic profile will be obtained to assess for electrolyte abnormality and renal function. High-sensitivity troponin will be obtained to assess for cardiac ischemia. Lab Data Attestation: I reviewed the patient's lab results. Lab results narrative: CBC was reviewed and shows a mild anemia with a hemoglobin of 10.5 and hematocrit 33.8. Platelets were normal. Basic metabolic profile was reviewed and was within normal limits. High-sensitivity troponin was reviewed and was normal. Labs: Laboratory Results - last 24 hr 06/18/22 06/18/22 00:22 00:22 WBC 11.0 RBC 3.76 L Hgb 10.5 L Hct 33.8 L MCV 89.9 MCH 27.9 MCHC 31.1 L RDW Std Deviation 43.9 RDW Coeff of Diana 13.4 Plt Count 219 MPV 11.4 Immature Gran % (Auto) 0.400 Neut % (Auto) 68.1 Lymph % (Auto) 17.3 L [place] % (Auto) 8.2 Eos % (Auto) 5.5 H Baso % (Auto) 0.5 Absolute Neuts (auto) 7.5 Absolute Lymphs (auto) 1.90 Nucleated RBC % 0 Sodium 141 Potassium 3.8 Chloride 107 Carbon Dioxide 28.0 Anion Gap 6 BUN 10 Creatinine 0.58 Estim Creat Clear Calc 92.41 Est GFR (MDRD) Af Amer 138 Est GFR (MDRD) Non-Af 114 BUN/Creatinine Ratio 17.3 Glucose 100 Calcium 8.8 Troponin I High Sens 8 Radiography Chest X-Ray - ED: 1 View, Read by ED Physician, Read by Radiologist and - (Left upper lobe questionable mass) Diagnostic Testing: Clinical Impression(s) from Imaging Studies Chest X-Ray 06/18/22 00:12 IMPRESSION: Left upper lobe questionable mass. Right hilar soft tissue fullness. CT chest recommended. Electronically Signed: Sonali Rascon MD at 1:00 EST , Chest CTA 06/18/22 01:08 IMPRESSION: 1. No evidence of pulmonary emboli. 2. Left upper lobe pulmonary mass suspicious for malignancy. Hilar and mediastinal adenopathy. Electronically Signed: Sonali Rascon MD at 2:58 EST , Portable chest x-ray was obtained. There is 1 view. On my independent interpretation, there is a soft tissue fullness in the left upper lobe. Radiolo gist also interpreted the x-ray and agrees. Radiologist also noted some right hilar soft tissue fullness. Radiologist recommended CT scan of the chest. CT scan of the chest was obtained. There is no evidence of pulmonary embolism. There is a left upper lobe pulmonary mass suspicious for malignancy. There is hilar and mediastinal adenopathy. This was interpreted by the radiologist and was also independently reviewed by myself. EKG Initial EKG: Attestation: I personally reviewed and interpreted this EKG as follows: Interpretation: Sinus Rhythm (74) and Non-Specific ST Changes Comments: EKG was obtained. On my independent interpretation, it showed a normal sinus rhythm with a rate of 74. [place] interval, QRS interval, and QTc intervals were all normal. [place] was normal. There are nonspecific ST-T wave changes. Prior EKG tracings: available for review Prior: Unchanged (12/13/2018) Treatment and Re-Evaluation Narrative: Patient is sleeping on reevaluation. Patient awakens easily. Patient was advised of her findings. Patient was instructed to follow-up with her primary care physician in 5 to 7 days. Patient was instructed return if worse in any way. Patient was advised of the need for further evaluation of the chest mass including likely biopsy and oncology referral. Patient understands and is agreeable with the plan. All questions were answered. Discharge Plan Triage Chief Complaint: Shortness of Breath ED Provider: Brian Kramer Dx/Rx/DC Orders Clinical Impression: Mass of upper lobe of left lung, Left-sided chest pain Prescriptions: No Action levetiracetam 1,000 mg tablet 1,000 mg PO BID pantoprazole 40 mg tablet,delayed release (DR/EC) 40 mg PO DAILY metoprolol succinate 100 mg tablet extended release 24 hr 100 mg PO DAILY amlodipine 5 mg tablet 5 mg PO DAILY dicyclomine 10 mg capsule 10 mg PO 4X/DAY PRN (Reason: Pain Score 1-10/10) citalopram 40 mg tablet 40 mg PO DAILY albuterol sulfate 90 mcg/actuation HFA aerosol inhaler 2 puff INHALATION Q6H aspirin 81 MG tablet 81 mg PO DAILY@0800 Label Comments: HEART HEALTH nitroglycerin 0.4 MG tablet 0.4 mg sublingual Q5M PRN (Reason: Chest Pain) Label Comments: CHEST PAIN valacyclovir 1 gram tablet 1,000 mg PO DAILY Label Comments: TAKE 1 TABLET BY MOUTH ONCE DAILY FOR 10 DAYS atorvastatin 40 mg tablet 40 mg PO QHS Qty: 90 3RF lisinopril 20 mg tablet 20 mg PO BID Qty: 180 3RF Primary Care Provider: Joseph Ortiz Referrals: Joseph Ortiz MD [Primary Care Provider] - 3-5 Days Disposition Disposition: Home, Self Care
--- NOTE | 2022-06-18 00:12 | EKG12_ITS ---
Test Reason : SOB Blood Pressure : / mmHG Vent. Rate : 074 BPM Atrial Rate : 074 BPM P-R Int : 172 ms QRS Dur : 088 ms QT Int : 382 ms P-R-T Axes : 056 071 101 degrees QTc Int : 424 ms Normal sinus rhythm T wave abnormality, consider anterior ischemia Abnormal ECG Confirmed by FABRIZIO NEWSOME, KAREL ([id number]), film and video editor TORSTEN JOHN ([id number]) on 06/20/2022 9:30:08 AM Referred By: Confirmed By:KAREL DINH MD
--- NOTE | 2022-06-18 00:12 | RAD_ITS ---
INDICATION: chest pain EXAMINATION/TECHNIQUE: X-RAY - XR Chest 1 View AP portable. 12:29 AM COMPARISON: 05/27/2019. FINDINGS: LINES/DEVICES: None. LUNGS: 3 cm rounded masslike opacity left upper lobe. No pneumothorax. MEDIASTINUM: Soft tissue fullness along the right hilar region possible adenopathy. CARDIAC SILHOUETTE: Not enlarged. Sternal wires. BONES AND SOFT TISSUES: No acute abnormalities. RAD/Chest 1 View (Portable) IMPRESSION: Left upper lobe questionable mass. Right hilar soft tissue fullness. CT chest recommended. Electronically Signed: Sonali Rascon MD at 1:00 EST ,
[2022-06-18] MEDS: Aspirin 81 MG TAB.CHEW 324 MG PO (00:23)
[2022-06-18 00:44] LABS: Absolute Neutrophil Count 7.5 X10^3/uL (2.0-7.7); Basophil# 0.06 X10^3/uL; Basophil% 0.5 % (0-1); Eosinophils% 5.5 % (0-5); Hematocrit 33.8 % (37-47); Hemoglobin 10.5 g/dL (12.0-15.0); Lymphocyte % 17.3 % (19-41); Mean Corp Hgb Conc 31.1 g/dL (32-36); Mean Corpuscular Hgb 27.9 pg (27.0-32.0); Mean Corpuscular Volume 89.9 fL (81-99); Mean Platelet Vol. 11.4 fl (6.2-12.0); Monocyte% 8.2 % (0-10); NRBC Flagged by Analyzer 0 % (0-5); Neutrophil % 68.1 % (47-70); Platelet Count 219 K/mm3 (150-450); RBC Distribution Width CV 13.4 % (11.6-14.6); RBC Distribution Width SD 43.9 fl (35.1-43.9); Red Blood Count 3.76 M/mm3 (4.2-5.4)
[2022-06-18 00:56] LABS: Anion Gap 6 (5-15); BUN 10 mg/dL (7-18); BUN/Creat Ratio 17.3 RATIO (10-20); Calcium,Total 8.8 mg/dL (8.5-10.1); Chloride 107 mmol/L (98-107); Creatinine, Serum 0.58 mg/dL (0.55-1.02); EST Glomerular Filtration Rate 114 mL/min (>60); Est Glom Filt Rate - Afr Amer 138 mL/min (>60); Estimated Creatinine Clearance 92.41 ml/min; Glucose 100 mg/dL (74-106); Potassium 3.8 mmol/L (3.5-5.1); Sodium Level 141 mmol/L (136-145); Troponin-I HS 8 pg/mL (3.0-54.0)
--- NOTE | 2022-06-18 01:08 | CT_ITS ---
STUDY: CTA CHEST REASON FOR EXAM: Female, 56 years old. Pulmonary embolism RADIATION DOSAGE (If Supplied By Facility): CTDIvol = ( 12.68 ) mGy, DLP = ( 439.59 ) mGycm TECHNIQUE: The examination was performed with the intravenous administration of IV 100mL Isovue-370. Post-processing of the angiographic images was performed, with multiplanar reformation and 3D reconstruction. Individualized dose optimization techniques were used for this CT. COMPARISON: None. FINDINGS: LUNGS: Emphysematous changes. No consolidation. Heterogeneous mass in the left upper lobe 3.5 x 2.8 x 2.9 cm, abuts the pleura. Mild adjacent pleural thickening. PLEURA: No pleural effusion. No pneumothorax. PULMONARY VESSELS: No pulmonary emboli identified. MEDIASTINUM: Enlarged lymph nodes in the mediastinum and left hilum. HEART: Not enlarged. AORTA/GREAT VESSELS: Thoracic aorta is normal caliber. No aneurysm or dissection. UPPER ABDOMEN: No acute findings. BONES/SOFT TISSUES: No acute findings. Sternal wires. OTHER: None. CT/CTA Chest W/WO Contrast IMPRESSION: 1. No evidence of pulmonary emboli. 2. Left upper lobe pulmonary mass suspicious for malignancy. Hilar and mediastinal adenopathy. Electronically Signed: Sonali Rascon MD at 2:58 EST ,
[2022-06-18 01:12] VITALS: BP 152/74; PULSE 73; RESP 15; TEMP 36.3; O2SAT 92
[2022-06-18 02:00] VITALS: BP 144/83; PULSE 77; RESP 20; O2SAT 94
[2022-06-18 03:40] VITALS: BP 127/72; PULSE 78; RESP 17; O2SAT 96
== END 2022-06-18 03:52 | disposition home or self-care (01) ==
PROVIDERS: Emergency Provider Emergency Medicine; PCP Internal Medicine; Visit Provider Emergency Medicine
DX: R91.8 Other nonspecific abnormal finding of lung field (principal); R07.89 Other chest pain; I25.10 Atherosclerotic heart disease of native coronary artery without angina pectoris; E78.5 Hyperlipidemia, unspecified; I10 Essential (primary) hypertension; F17.210 Nicotine dependence, cigarettes, uncomplicated
CPT/HCPCS: 71045; 71275; 80048; 84484; 85025; 93005; 99285; Q9967; A4216

== ENCOUNTER 2022-07-04 08:38 | Emergency (ER) | payer MEDICARE, MEDICAID, SELFPAY ==
[2022-07-04 08:40] VITALS: BP 133/85; PULSE 89; RESP 20; TEMP 36.3; O2SAT 92; BMI 29.0
[2022-07-04 08:48] VITALS: BP 125/86; PULSE 90; RESP 18; O2SAT 92
--- NOTE | 2022-07-04 08:58 | RAD_ITS ---
HISTORY: cp. TECHNIQUE: XR Chest 2 Views. COMPARISON: 06/18/2022. FINDINGS: CARDIOMEDIASTINAL BORDERS: Cardiac silhouette within normal limits in size. Mediastinal contour unchanged with calcification of the aorta and midline sternotomy. LUNGS/PLEURA: 3.4 x 4.9 cm left upper lobe mass with adjacent pleural thickening or loculated effusion. OSSEOUS STRUCTURES: Unremarkable. RAD/Chest PA and Lateral IMPRESSION: Left upper lobe mass with adjacent pleural thickening or loculated effusion, again suspicious for malignancy. Electronically Signed: Alcira Silver MD at 9:39 EDT ,
--- NOTE | 2022-07-04 08:58 | EKG12_ITS ---
Test Reason : CP Blood Pressure : / mmHG Vent. Rate : 082 BPM Atrial Rate : 082 BPM P-R Int : 160 ms QRS Dur : 084 ms QT Int : 370 ms P-R-T Axes : 038 064 100 degrees QTc Int : 432 ms Normal sinus rhythm Normal ECG Confirmed by NOHEMI NEWSOME, TRAN ([id number]), food editor TORSTEN JOHN ([id number]) on 07/07/2022 6:55:57 AM Referred By: BAILEY Confirmed By:JOSEFINA SONG MD
--- NOTE | 2022-07-04 08:59 | EX.ED.DYSGE1 ---
HPI History of Present Illness Chief Complaint: Chest Pain Narrative Narrative: Patient presents with chest pain and arm pain for few weeks, she was seen in our emergency department was diagnosed with a lung mass this is the same pain that she has had however the Ultram that she has at home are not adequate for analgesia for her. She has an appointment with Dr. Lyons from pulmonology next week. She tells me she has no new symptoms other than the pain, when she was here last time she had a CT angiogram which did not show any PEs. PFSH PFSH Medical History Atherosclerosis of coronary artery of [place] heart without angina pectoris Chronic back pain Collagenous colitis DDD (degenerative disc disease), lumbar Depression with anxiety Essential hypertension Hyperlipidemia Seizures Syncope and collapse Tobacco use Home Medications aspirin 81 mg tablet,delayed release 81 mg PO DAILY@0800 06/07/13 [History Last Taken 10/25/18] nitroglycerin 0.4 mg sublingual tablet 0.4 mg sublingual Q5M PRN Chest Pain 06/07/13 [History Last Taken 07/31/16] albuterol sulfate 90 mcg/actuation aerosol inhaler 2 puff inhalation Q6H 12/12/18 [History Last Taken Unknown] amlodipine 5 mg tablet 5 mg PO DAILY 12/12/18 [History Last Taken Unknown] citalopram 40 mg tablet 40 mg PO DAILY 12/12/18 [History Last Taken Unknown] dicyclomine 10 mg capsule 10 mg PO 4X/DAY PRN Pain Score 1-01/3012/12/18 [History Last Taken Unknown] levetiracetam 1,000 mg tablet 1,000 mg PO BID 12/12/18 [History Last Taken Unknown] metoprolol succinate 100 mg tablet,extended release 24 hr 100 mg PO DAILY 12/12/18 [History Last Taken Unknown] pantoprazole 40 mg tablet,delayed release 40 mg PO DAILY 12/12/18 [History Last Taken Unknown] atorvastatin 40 mg tablet 40 mg PO QHS #90 tabs 01/20/19 [Rx Last Taken Unknown] lisinopril 20 mg tablet 20 mg PO BID #180 tabs 12/08/20 [Rx Last Taken Unknown] valacyclovir 1 gram tablet 1,000 mg PO DAILY 06/17/22 [History Last Taken Unknown] tramadol 50 mg tablet 50 mg PO Q8H PRN 06/22/22 [History Last Taken Unknown] oxycodone-acetaminophen 5 mg-325 mg tablet (Percocet) 1 tab PO Q8H PRN pain 3 days #12 tabs 07/04/22 [Rx Last Taken Unknown] Allergy/AdvReac Type Severity Reaction Status Date / Time oxycodone Allergy Intermediate Unknown Verified 06/22/22 10:39 codeine AdvReac Vomiting Verified 06/22/22 10:39 Family History Mother , Age 78 Diabetes Hypertension Heart disease Alzheimer's dementia Father , Age 57 Asthma CAD (coronary artery disease) Myocardial infarction Brother , 56 Heart disease Ischemic Cancer pancreatic Surgical History History of appendectomy History of cholecystectomy History of coronary artery bypass graft History of endometrial ablation History of tubal ligation Social History Smoking Status: Current every day smoker tobacco type: cigarettes alcohol intake: never substance use type: does not use caffeine: Yes Type: carbonated beverages Number of servings: 12 ROS ROS ED ROS Narrative Past medical history: Reviewed Medications: Reviewed Social history: Noncontributory Review of systems: All systems negative except as indicated General: No fever Eyes: No visual changes ENT: No upper airway congestion, normal voice Neck: No neck pain Cardiovascular: Chest pain, no palpitations or syncope Respiratory: Some shortness of breath which has not changed. Gastrointestinal: No abdominal pain, nausea vomiting or diarrhea Genitourinary: No dysuria Musculoskeletal: Denies myalgias no difficulty with ambulation Skin: No rash Neurological: No memory loss, confusion or any focal weakness Psych: No recent behavioral changes Hematologic: No easy bleeding or easy bruising EXAM Physical Exam Narrative Exam Narrative: Physical exam General: She appears comfortable. Although she did receive 100 mcg of fentanyl prior to arrival. She appears chronically ill but not acutely ill. Head: Normocephalic, Atraumatic Eyes: Conjunctiva not pale ENT: Moist mucous membranes Neck: Supple, Nontender, No lymphadenopathy Cardiovascular: Regular rate, Regular rhythm Chest wall: She has reproducible left-sided chest wall pain and pain in the axillary region, no rash. Respiratory: Coarse bilateral breath sounds with scant wheezing. She is not in any respiratory distress. Abdomen: Soft, Nontender, Nondistended Back: Nontender, Normal Inspection. Negative for: CVA tenderness Extremities: Nontender, No edema Skin: Normal color, No rash Neurological: Alert, Normal Strength, Normal Sensation Const Vital Signs: 07/04/22 08:40 07/04/22 08:48 Temperature 97.3 F L Temperature Source Temporal Pulse Rate 89 90 Respiratory Rate 20 H 18 Blood Pressure 133/85 H 125/86 H Blood Pressure Mean 101 99 Pulse Ox 92 92 Oxygen Delivery Method Room Air Room Air MDM MDM MDM Narrative Medical decision making narrative: A. Problems addressed Patient has a lung mass which is quite painful. She is given analgesics in the ED. She has an appointment next week for her lung mass. Thought about a pulmonary embolism however she just had a CT angiogram and her symptoms have been changed. She has an unremarkable EKG and this is unlikely to be cardiac especially that have an alternative diagnosis. She is now comfortable. I talked to her and she will be switched to Percocet at least until she can see Dr. Lyons. I also talked her at length about smoking cessation. B. Amount and/or complexity of the data 1. CBC CMP are unremarkable. I thought about doing a troponin however she has had constant chest pain which is somewhat reproducible and it secondary to the mass. I do not believe this is cardiac. 2. Independent interpretation of test Telemetry: Sinus rhythm with a rate in the 90s on the monitor without any ectopy. C. Risk of complications and/or morbidity Differential diagnosis: See above Patient has the following social determinants of health and it impacts their health care: She lives alone, she continues to smoke, I talked to her about smoking cessation. Lab Data Labs: Laboratory Results - last 24 hr 07/04/22 07/04/22 08:45 08:45 WBC 12.5 H RBC 3.99 L Hgb 11.1 L Hct 35.2 L MCV 88.2 MCH 27.8 MCHC 31.5 L RDW Std Deviation 43.8 RDW Coeff of Diana 13.8 Plt Count 289 MPV 10.4 Immature Gran % (Auto) 0.600 Neut % (Auto) 74.6 H Lymph % (Auto) 11.9 L [place] % (Auto) 7.7 Eos % (Auto) 4.7 Baso % (Auto) 0.5 Absolute Neuts (auto) 9.4 H Absolute Lymphs (auto) 1.49 Nucleated RBC % 0 Sodium 140 Potassium 4.2 Chloride 109 H Carbon Dioxide 26.0 Anion Gap 5 BUN 9 Creatinine 0.59 Estim Creat Clear Calc 90.84 Est GFR (MDRD) Af Amer 135 Est GFR (MDRD) Non-Af 112 BUN/Creatinine Ratio 15.3 Glucose 99 Calcium 8.4 L Total Bilirubin 0.40 AST 8 L ALT 12 L Alkaline Phosphatase 121 H Total Protein 7.1 Albumin 2.5 L Globulin 4.6 H Albumin/Globulin Ratio 0.5 L Radiography Diagnostic Testing: Chest x-ray read by me shows a left-sided lung mass otherwise unchanged from prior x-ray. EKG Initial EKG: Comments: Sinus rhythm with a rate of 82. Normal LA and QTc intervals. No ischemic changes are seen. Interpreted by emergency doctor. Discharge Plan Triage Chief Complaint: Chest Pain ED Provider: Ted Whitt Dx/Rx/DC Orders Clinical Impression: Lung mass, Chest wall pain Instructions: ED Chest Pain, Noncardiac Prescriptions: New oxycodone-acetaminophen [Percocet] 5-325 mg tablet 1 tab PO Q8H PRN (Reason: pain) 3 Days Qty: 12 0RF No Action levetiracetam 1,000 mg tablet 1,000 mg PO BID pantoprazole 40 mg tablet,delayed release (DR/EC) 40 mg PO DAILY metoprolol succinate 100 mg tablet extended release 24 hr 100 mg PO DAILY amlodipine 5 mg tablet 5 mg PO DAILY dicyclomine 10 mg capsule 10 mg PO 4X/DAY PRN (Reason: Pain Score 1-10/10) citalopram 40 mg tablet 40 mg PO DAILY albuterol sulfate 90 mcg/actuation HFA aerosol inhaler 2 puff INHALATION Q6H tramadol 50 mg tablet 50 mg PO Q8H PRN aspirin 81 MG tablet 81 mg PO DAILY@0800 Label Comments: HEART HEALTH nitroglycerin 0.4 MG tablet 0.4 mg sublingual Q5M PRN (Reason: Chest Pain) Label Comments: CHEST PAIN valacyclovir 1 gram tablet 1,000 mg PO DAILY Label Comments: TAKE 1 TABLET BY MOUTH ONCE DAILY FOR 10 DAYS atorvastatin 40 mg tablet 40 mg PO QHS Qty: 90 3RF lisinopril 20 mg tablet 20 mg PO BID Qty: 180 3RF Primary Care Provider: Joseph Ortiz Referrals: Joseph Ortiz MD [Primary Care Provider] - Activity Restrictions/Additional Instructions: Follow-up with Dr. Lyons on 07/10/2022 as scheduled. Disposition Disposition: Home, Self Care
[2022-07-04 09:08] LABS: Absolute Lymphocyte Count 1.49 X10^3/uL (0.83-4.51); Absolute Neutrophil Count 9.4 X10^3/uL (2.0-7.7); Basophil# 0.06 X10^3/uL; Basophil% 0.5 % (0-1); Eosinophil# 0.59 X10^3/uL; Eosinophils% 4.7 % (0-5); Hematocrit 35.2 % (37-47); Hemoglobin 11.1 g/dL (12.0-15.0); Lymphocyte # 1.49 X10^3/ul (0.83-4.51); Lymphocyte % 11.9 % (19-41); Mean Corp Hgb Conc 31.5 g/dL (32-36); Mean Corpuscular Hgb 27.8 pg (27.0-32.0); Mean Corpuscular Volume 88.2 fL (81-99); Mean Platelet Vol. 10.4 fl (6.2-12.0); Monocyte# 0.97 X10^3/uL; Monocyte% 7.7 % (0-10); NRBC Flagged by Analyzer 0 % (0-5); Neutrophil # 9.36 X10^3/uL (2.7-7.7); Neutrophil % 74.6 % (47-70); Platelet Count 289 K/mm3 (150-450); RBC Distribution Width CV 13.8 % (11.6-14.6); RBC Distribution Width SD 43.8 fl (35.1-43.9); Red Blood Count 3.99 M/mm3 (4.2-5.4); White Blood Count 12.5 K/mm3 (4.4-11.0)
[2022-07-04 09:26] LABS: ALB/GLOB Ratio 0.5 RATIO (0.9-2.4); AST(SGOT) 8 U/L (15-37); Alanine Aminotransfer ALT/SGPT 12 U/L (13-56); Albumin, Serum 2.5 g/dL (3.2-5.0); Alkaline Phosphatase 121 U/L (45-117); Anion Gap 5 (5-15); BUN 9 mg/dL (7-18); BUN/Creat Ratio 15.3 RATIO (10-20); Calcium,Total 8.4 mg/dL (8.5-10.1); Chloride 109 mmol/L (98-107); Creatinine, Serum 0.59 mg/dL (0.55-1.02); EST Glomerular Filtration Rate 112 mL/min (>60); Est Glom Filt Rate - Afr Amer 135 mL/min (>60); Estimated Creatinine Clearance 90.84 ml/min; Globulin 4.6 g/dL (2.2-4.2); Glucose 99 mg/dL (74-106); Potassium 4.2 mmol/L (3.5-5.1); Protein, Total 7.1 g/dL (6.4-8.2); Sodium Level 140 mmol/L (136-145)
== END 2022-07-04 10:21 | disposition home or self-care (01) ==
PROVIDERS: Emergency Provider Emergency Medicine; PCP Internal Medicine; Visit Provider Emergency Medicine
DX: R91.8 Other nonspecific abnormal finding of lung field (principal); I25.10 Atherosclerotic heart disease of native coronary artery without angina pectoris; E78.5 Hyperlipidemia, unspecified; I10 Essential (primary) hypertension; R07.9 Chest pain, unspecified
CPT/HCPCS: 71046; 80053; 85025; 93005; 99285; A4216

== ENCOUNTER 2022-07-11 07:25 | Outpatient (CLI) | payer MEDICARE, MEDICAID, SELFPAY ==
[2022-07-11] VITALS (9 sets, daily range): BP systolic 73–105; BP diastolic 49–71; PULSE 74–87; RESP 14–30; TEMP 37.1; O2SAT 89–95; BMI 28.5
--- NOTE | 2022-07-11 | IMM_PTH ---
PATIENT: EMILY WOOD LOC: CT U#:[id number] AGE/SX: 56/F ROOM: RE07/11/[address]: Dr. Dennys Lyons MD : 1965 BED: DIS: 07/11/2022 SPEC #: [id number] RECD: 07/11/22 13:39 STATUS: RICHARD REQ #: [id number] HAZEL: 07/11/22 00:[address]: Dennys Lyons DEPT: IMMUNOHISTOCHEMISTRY RECD BY: Pao Gaviria ENTERED: 07/11/22 13:41 SP TYPE: IMMUNO OTHR DR: Dr. Joseph Ortiz MD Tissues: Left upper lobe of lung, NOS Procedures: RCC (add) NAPSIN A (add) CK20 (add) CK5-6 (add) CK7 (add) CK8 (add) HEP PAR (add) NM (add) TTF1 (add) Pankeratin (add) P40 (add) ER (initial) PHYSICIAN & [address] [id number] SPECIMEN INFORMATION: Tissue Source: Left upper lobe lung Clinical Info: Left upper lobe lung mass Specimen Number: [id number] CPT code: 34946, 23645 x11 METHODOLOGY: Deparaffinized sections of prefer/formalin-fixed tissue or PAP/DQ stained slides are incubated with monoclonal/polyclonal antibodies/oligonucleotide probes. Localization is made via biotin free immunoperoxidase method. Appropriate controls are performed and reacted as expected. Results on target cell population are indicated in the following table: RESULTS: ANTIBODY / CLONE RESULT ER (6F11) negative NM (1E2) negative AE1-3 (AE1/AE3/PCK26) positive CK7 (OV-TL12/30) positive CK8 (30lculE63) positive CK20 (KS20.8) negative TTF-1 (8G7G3/1) negative Napsin A (Rabbit Polyclonal) negative HepPar (OCh1E5) negative RCC (PN-15) negative CK5-6 (D5 & 1684) positive P40 (BC28) positive These tests were developed and their performance characteristics determined by [facility]. They may not have been cleared or approved by the U.S. Food and Drug Administration. The FDA has determined that such clearance or approval is not necessary. The above immunohistochemical/dualISH markers are ordered and reviewed by the Pathologist. INTERPRETATION: Left upper lobe lung, CT-guided core biopsy: Non-small cell carcinoma, favor squamous cell carcinoma. SJ:sandra 07/12/2022
--- NOTE | 2022-07-11 07:30 | CT_ITS ---
PROCEDURE: CT GUIDED CORE NEEDLE BIOPSY OF A left upper lobe LUNG LESION INDICATION: Female, 56 years old. Left upper lobe mass. PHYSICIAN: Dr. oJby Moore CONSENT: Written informed consent was obtained having explained the risks, benefits and alternatives in detail with the patient who accepted the risks and agreed to proceed. Laboratory review and clinical assessment was performed. CONSCIOUS SEDATION PROTOCOL: The Drugs used were: 1 mg Versed, IV., and 25 mcg Fentanyl, IV. The sedation time was: 24 minutes. The conscious sedation protocol was independently monitored. RADIATION DOSAGE (If Supplied By Facility): CTDIvol = ( 13 ) mGy, DLP = ( 124.44 ) mGycm Individualized dose optimization techniques were used for this CT. TECHNIQUE: The patient was placed in the prone position. A noncontrast CT was performed to localize the lesion in the posterior lateral aspect of the left upper lobe . The skin surface was prepped and draped in a sterile fashion. 1% lidocaine was used for local anesthesia. Using CT guidance, a 20-gauge coaxial biopsy device was advanced to the periphery of the lesion. A total of 5 core specimens were obtained. The specimens were placed in a formalin solution. A post procedure CT demonstrated no adverse sequelae or pneumothorax. The patient tolerated the procedure well without adverse event. A negative biopsy does not exclude malignancy. Further imaging or clinical followup based on patient condition and degree of clinical suspicion for malignancy. Suggest rebiopsy, if biopsy results do not match with clinical scenario. CT/Biopsy/Inj or Needle Placement IMPRESSION: 1. CT directed core needle biopsy of the left upper lobe pulmonary nodule using CT image guidance with image documentation as described. Pathology results are pending. 2. Conscious Sedation protocol utilized with independent monitoring. Electronically Signed: Kalyan Hemphill MD at 10:11 EDT ,
[2022-07-11 07:46] LABS: Platelet Count 330 K/mm3 (150-450)
[2022-07-11 08:01] LABS: International Normalized Ratio 1.1; Prothrombin Time (Protime)PT. 14.1 SECONDS (11.7-14.9)
[2022-07-11 08:02] LABS: Partial Thromboplast Time 31.7 Seconds (24.1-36.2)
[2022-07-11] MEDS: Midazolam 2 MG/2 ML Syringe IV (09:19)
[2022-07-11] MEDS: fentaNYL 100 MCG/2 ML Ampul IV (09:19)
[2022-07-11] MEDS: Lidocaine 2% (20 ml mdv) 20 ML Vial INFILT (09:34)
--- NOTE | 2022-07-11 09:40 | ASPIGT_PTH ---
PATIENT: EMILY WOOD LOC: CT U#:[id number] AGE/SX: 56/F ROOM: RE07/11/[address]: Dr. Dennys Lyons MD : 1965 BED: DIS: 07/11/2022 SPEC #: [id number] RECD: 07/11/22 11:25 STATUS: RICHARD COLTON #: [id number] HAZEL: 07/11/22 09:[address]: Dennys Lyons DEPT: SURGICAL PATHOLOGY RECD BY: Renetta Ramirez ENTERED: 07/11/22 11:26 SP TYPE: ASP RAD OTHR DR: Dr. Joseph Ortiz MD Tissues: Lung, NOS Procedures: FNA Specimen Adequacy Special Stain Group II Surgery Specimen Level IV Imprint (control) HEADER OPERATION: Left upper lobe lung mass, CT-guided core biopsy PRE-OP DIAGNOSIS: Left upper lobe lung mass TISSUE SUBMITTED: Left upper lobe lung mass 20-gauge core x5 MICROSCOPIC DIAGNOSIS Left upper lobe lung mass, CT-guided core biopsy: Non-small cell carcinoma, favor squamous cell carcinoma. See comment. Anahi 07/12/2022 COMMENT The specimen is evaluated at the time of biopsy by Dr. Penny. Immediate Evaluation = Malignant cells present derived from non-small cell carcinoma. Immunohistochemistry ([id number]) supports the above diagnosis. Molecular studies on the tumor can be performed if clinically indicated. Please notify the laboratory if they are needed. Case has been reviewed in consultation with Dr. Penny who concurs with the above diagnosis. IDC:[email or web address] MICROSCOPIC DESCRIPTION Slides are reviewed. GROSS DESCRIPTION Received in fixative is one container labeled with the patient's name and designated left lung. The specimen consists of multiple irregular fragments of abbasi soft tissue that in aggregate measure 1.2 x 0.2 x 0.1 cm. The specimen is totally submitted in one cassette. Two touch imprints are prepared at the time of core biopsy. / RAMONE:sandra 07/11/2022 TC:0 [facility]: [id number], [id number] ADDENDUM ADDENDUM ADDENDUM ADDENDUM ADDENDUM ADDENDUM 08/09/2022 10:12 ADDENDUM 08/09/2022 10:12 ADDENDUM 08/09/2022 10:12 ADDENDUM 08/09/2022 10:12 ADDENDUM 08/09/2022 10:12 PD-L1 (KEYTRUDA) IMMUNOHISTOCHEMICAL ANALYSIS FROM [facility] RESULTS: Tumor proportion score: 5% / Positive Please see complete report in e-chart or EMR
[2022-07-11] MEDS: 0.9% Normal Saline 250 ML IV.SOLN. IV (10:35)
== END 2022-07-11 23:59 | disposition home or self-care (01) ==
LOC: CT 07:27
PROVIDERS: PCP Internal Medicine; Referring Provider Internal Medicine Critical Care Medicine; Visit Provider Internal Medicine Critical Care Medicine
DX: C34.12 Malignant neoplasm of upper lobe, left bronchus or lung (principal); Z79.82 Long term (current) use of aspirin; Z79.899 Other long term (current) drug therapy; I25.10 Atherosclerotic heart disease of native coronary artery without angina pectoris; I10 Essential (primary) hypertension; E78.5 Hyperlipidemia, unspecified; F17.210 Nicotine dependence, cigarettes, uncomplicated; Z95.1 Presence of aortocoronary bypass graft
CPT/HCPCS: 32408; 36415; 77012; 85049; 85610; 85730; 88172; 88305; 88313; 88341; 88342; 99156; J7050; A4216

== ENCOUNTER → 2022-07-27 | Outpatient (CLI) | payer MEDICARE, MEDICAID, SELFPAY ==
--- NOTE | 2022-07-27 06:22 | MRI_ITS ---
EXAM: MR HEAD WITHOUT AND WITH INTRAVENOUS CONTRAST CLINICAL INDICATION: STAGING LUNG CANCER, no neuro symptoms TECHNIQUE: Multiplanar and multisequence MR images of the brain were obtained without and with intravenous contrast. This report was created using [employer] report generation technology. CONTRAST: IV 15ml Clariscan COMPARISON: None. FINDINGS: BRAIN AND EXTRA-AXIAL SPACES: Few small T2 FLAIR hyperintensity foci in the white matter of both cerebral hemispheres are presumably secondary to chronic white matter ischemic changes. No intra- or extra-axial hemorrhage. No intracranial mass or mass effect. Posterior fossa structures are unremarkable. Ventricles are appropriate for age. No hydrocephalus. Basal cisterns are patent. No abnormally enhancing lesions intra-axially and extra-axially. SELLA: Unremarkable. Normal sella turcica, pituitary gland, infundibular stalk, optic chiasm and hypothalamus. AUDITORY SYSTEM: Unremarkable. The internal auditory canals are patent. BONES/JOINTS: Unremarkable. No discrete lytic or blastic abnormalities. SINUSES: Unremarkable as visualized. Clear. MASTOID AIR CELLS: Unremarkable as visualized. Clear. ORBITS: Unremarkable as visualized. Both globes, extraocular muscles, optic nerves and retrobulbar fat appear unremarkable. VASCULATURE: Unremarkable as visualized. Normal flow voids in the major intracranial circulation. MRI/Brain W/WO Contrast IMPRESSION: 1. No MRI evidence of intracranial metastatic disease. 2. Few chronic white matter ischemic changes in both cerebral hemispheres. Electronically Signed: Patrick Vincent MD at 13:11 EDT ,
== END | disposition home or self-care (01) ==
PROVIDERS: PCP Internal Medicine; Referring Provider Internal Medicine Hematology & Oncology; Visit Provider Internal Medicine Hematology & Oncology
DX: C34.90 Malignant neoplasm of unspecified part of unspecified bronchus or lung (principal)
CPT/HCPCS: 70553; A9575

== ENCOUNTER 2022-07-31 13:00 | Outpatient (CLI) | payer MEDICARE, MEDICAID, SELFPAY ==
--- NOTE | 2022-08-01 05:48 | PFTCOMP ---
COMPLETE PULMONARY FUNCTION TEST INTERPRETATION Brief HPI: Patient is a 56-year-old female, currently under the care of Mckenzie Allred, who presents to [facility] for complete pulmonary function tests secondary to diagnosis of dyspnea. Respiratory therapist reports good effort and reproducible results. Interpretation: Forced expiration spirometry shows a moderate large airways obstructive ventilatory defect with an FEV1 of 64% predicted. There is a significant bronchodilator response in FEV1 by strict ATS criteria. Spirograms are of good quality and plateau slowly, indicating slowly emptying areas of the lungs. The respiratory flow volume loop shows decreased expiratory flow rates at all lung volumes consistent with airway obstruction. Lung volumes by body plethysmography show a normal total lung capacity at 4.99 L, 102% predicted. All other lung volumes are within normal limits. Diffusion capacity by carbon monoxide is decreased at 52% predicted. The airway resistance is elevated. No previous pulmonary function tests were available for review. Impression: Partially reversible large airways obstructive ventilatory defect with a symmetric reduction in diffusion capacity, and a pattern consistent with COPD/asthma overlap syndrome
== END 2022-07-31 23:59 | disposition home or self-care (01) ==
LOC: PSN 13:01
PROVIDERS: PCP Internal Medicine; Referring Provider Nurse Practitioner Acute Care; Visit Provider Nurse Practitioner Acute Care
DX: R91.8 Other nonspecific abnormal finding of lung field (principal); C34.90 Malignant neoplasm of unspecified part of unspecified bronchus or lung
CPT/HCPCS: 77014; 77290; 94060; 94726; 94729

== ENCOUNTER 2022-08-06 13:26 | Inpatient (IN) | payer MEDICARE, MEDICAID, SELFPAY ==
[2022-08-06] VITALS (9 sets, daily range): BP systolic 83–108; BP diastolic 50–63; PULSE 77–86; RESP 14–20; TEMP 36.4–37.2; O2SAT 89–94; BMI 26.4
--- NOTE | 2022-08-06 13:41 | EX.ED.DYSGE1 ---
HPI <MARYURI Perez - Last Filed: 08/06/22 17:51> History of Present Illness Chief Complaint: Other, Pain/Inj Narrative Narrative: 56-year-old female with recent stage IV lung cancer diagnosis presents with left groin pain that started this morning. She states it was very painful and she felt like she could not walk on the leg. No trauma or falls. No abdominal pain. Normal bladder and bowel movements. She recently started radiation for her lung cancer. She is not on chemo. No recent fever or chils. PFSH <MARYURI Perez - Last Filed: 08/06/22 17:51> PFSH Medical History Atherosclerosis of coronary artery of douglas heart without angina pectoris Chronic back pain Collagenous colitis DDD (degenerative disc disease), lumbar Depression with anxiety Essential hypertension Hyperlipidemia Seizures Syncope and collapse Tobacco use Home Medications aspirin 81 mg tablet,delayed release 81 mg PO DAILY@0800 06/07/13 [History Last Taken 08/06/22] nitroglycerin 0.4 mg sublingual tablet 0.4 mg sublingual Q5M PRN Chest Pain 06/07/13 [History Last Taken 07/31/16] amlodipine 5 mg tablet 5 mg PO DAILY 12/12/18 [History Last Taken 08/06/22] citalopram 40 mg tablet 40 mg PO DAILY 12/12/18 [History Last Taken 08/06/22] dicyclomine 10 mg capsule 10 mg PO 4X/DAY PRN Pain Score 1-01/3012/12/18 [History Last Taken 08/01/22] levetiracetam 1,000 mg tablet 1,000 mg PO BID 12/12/18 [History Last Taken 08/06/22] metoprolol succinate 100 mg tablet,extended release 24 hr 100 mg PO DAILY 12/12/18 [History Last Taken 08/06/22] atorvastatin 40 mg tablet 40 mg PO QHS #90 tabs 01/20/19 [Rx Last Taken 08/05/22] lisinopril 20 mg tablet 20 mg PO BID #180 tabs 12/08/20 [Rx Last Taken 08/06/22] valacyclovir 1 gram tablet 1,000 mg PO DAILY 06/17/22 [History Last Taken 08/06/22] oxycodone-acetaminophen 5 mg-325 mg tablet (Percocet) 1 tab PO Q8H PRN pain 3 days #12 tabs 07/04/22 [Rx Last Taken 08/06/22] fentanyl 25 mcg/hr transdermal patch 1 patch transdermal Q72H 07/20/22 [History Last Taken 08/05/22] bisacodyl 10 mg rectal suppository (Dulcolax (bisacodyl)) 10 mg SD DAILY PRN Constipation 08/06/22 [History Last Taken 08/05/22] buspirone 5 mg tablet 5 mg PO BID ANXIETY 08/06/22 [History Last Taken Unknown] cholecalciferol (vitamin D3) 25 mcg (1,000 unit) tablet (Vitamin D3) 25 mcg PO DAILY SUPPLEMENT 08/06/22 [History Last Taken 08/06/22] fluticasone fur. 200 mcg-umeclid 62.5 mcg-vilant 25 mcg inhalat.powder (Trelegy Ellipta) 1 inh inhalation DAILY 08/06/22 [History Last Taken 08/06/22] fluticasone propionate 50 mcg/actuation nasal spray,suspension 1 spray intranasal DAILY ALLERGIES 08/06/22 [History Last Taken 08/06/22] isosorbide mononitrate 30 mg tablet,extended release 24 hr 30 mg PO DAILY ANGINA 08/06/22 [History Last Taken 08/06/22] lidocaine 5 % topical ointment 1 applic topical BID GENITAL PAIN 08/06/22 [History Last Taken 08/05/22] methylnaltrexone 150 mg tablet (Relistor) 450 mg PO DAILY CONSTIPATION, OPIOID-INDUCED 08/06/22 [History Last Taken Unknown] ondansetron 4 mg disintegrating tablet 4 mg PO Q8H PRN Nausea 08/06/22 [History Last Taken 08/06/22] polyethylene glycol 3350 17 gram/dose oral powder 17 g PO DAILY PRN Constipation 08/06/22 [History Last Taken 08/06/22] sennosides 8.6 mg tablet (senna) 8.6 mg PO DAILY PRN Constipation 08/06/22 [History Last Taken 08/06/22] Allergy/AdvReac Type Severity Reaction Status Date / Time oxycodone Allergy Intermediate Unknown Verified 08/07/22 13:51 codeine AdvReac Vomiting Verified 08/07/22 13:51 Family History (Reviewed 08/01/22 @ 09:33 by Mckenzie Allred MANAGER SEMICONDUCTOR, MANAGER SEMICONDUCTOR-C) Mother , Age 78 Diabetes Hypertension Heart disease Alzheimer's dementia Father , Age 57 Asthma CAD (coronary artery disease) Myocardial infarction Brother , 56 Heart disease Ischemic Cancer pancreatic Surgical History (Reviewed 08/01/22 @ 09:33 by Mckenzie Allred MANAGER SEMICONDUCTOR, MANAGER SEMICONDUCTOR-C) History of appendectomy History of cholecystectomy History of coronary artery bypass graft History of endometrial ablation History of tubal ligation Social History (Reviewed 08/01/22 @ 09:33 by Mckenzie Allred MANAGER SEMICONDUCTOR, MANAGER SEMICONDUCTOR-C) Smoking Status: Current every day smoker tobacco type: cigarettes alcohol intake: never substance use type: does not use caffeine: Yes Type: carbonated beverages Number of servings: 12 ROS <MARYURI Perez - Last Filed: 08/06/22 17:51> ROS ED ROS Narrative Constitutional: Negative for fever, chills, malaise. CVS: Negative for chest pain. Respiratory: Negative for shortness of breath. GI: Negative for abdominal pain, nausea, vomiting, diarrhea, constipation, melena, hematochezia. : Negative for dysuria, frequency. Neuro: Negative for motor/sensory dysfunction. Musc: Negative for joint pain, swelling, trauma. EXAM <MARYURI Perez - Last Filed: 08/06/22 17:51> Physical Exam Narrative Exam Narrative: CONST: Patient sitting in no acute distress. EYES: Normal inspection. NECK: Normal inspection. RESP: No respiratory distress, CTAB. CVS: Regular rate and rhythm, no murmur, no gallop. SKIN: Small blistering lesions on erythematous base left labia majora and groin consistent with herpes simplex. EXTREMITIES: Normal appearance, no pedal edema. NEURO: Oriented x4. PSYCH: Normal affect. Const Vital Signs: 08/06/22 13:26 08/06/22 13:33 08/06/22 14:29 Temperature 97.5 F L Temperature Source Temporal Pulse Rate 86 Respiratory Rate 20 H Respiratory Effort Normal Respiratory Pattern Normal Blood Pressure 83/51 L Blood Pressure Mean 61 Pulse Ox 91 92 Oxygen Delivery Method Room Air Nasal Cannula Oxygen Flow Rate (L/min) 2.5 08/06/22 14:28 08/06/22 15:04 08/06/22 17:13 Temperature Temperature Source Pulse Rate 77 84 Respiratory Rate 18 14 Respiratory Effort Respiratory Pattern Blood Pressure 101/58 L 108/62 Blood Pressure Mean 72 77 Pulse Ox 89 90 94 Oxygen Delivery Method Room Air Nasal Cannula Nasal Cannula Oxygen Flow Rate (L/min) 2 2 <Dr. Poncho Schreiber DO - Last Filed: 08/10/22 22:41> Physical Exam Const Vital Signs: 08/06/22 13:26 08/06/22 13:33 08/06/22 14:29 Temperature 97.5 F L Temperature Source Temporal Pulse Rate 86 Respiratory Rate 20 H Respiratory Effort Normal Respiratory Pattern Normal Blood Pressure 83/51 L Blood Pressure Mean 61 Pulse Ox 91 92 Oxygen Delivery Method Room Air Nasal Cannula Oxygen Flow Rate (L/min) 2.5 08/06/22 14:28 08/06/22 15:04 08/06/22 17:13 Temperature Temperature Source Pulse Rate 77 84 Respiratory Rate 18 14 Respiratory Effort Respiratory Pattern Blood Pressure 101/58 L 108/62 Blood Pressure Mean 72 77 Pulse Ox 89 90 94 Oxygen Delivery Method Room Air Nasal Cannula Nasal Cannula Oxygen Flow Rate (L/min) 2 2 MDM <MARYURI Perez - Last Filed: 08/06/22 17:51> [facility] MDM Narrative Medical decision making narrative: History gathered from: Patient and her sisters Patient came in due to left groin pain. She has several small red spots on the left labia where she indicates she has pain that may be a breakout of herpes simplex since she has known history. She has no bony tenderness to palpation of the pelvis or lower extremities. Distal pulses intact. She was also noted to be hypotensive and looked dehydrated. States she has had poor p.o. intake recently so she was given IV fluids and labs were obtained. There is leukocytosis at 23.2, acute on chronic anemia at 9.1. Sodium is 133 and she has acute kidney injury with creatinine of 1.31. Baseline is around 0.6. Glucose is 119 with anion gap of 5. Urinalysis is negative. CXR shows enlarging left upper lobe mass but no acute infiltrate. Patient did start requiring 2 L of O2 here. States she wears 3 L as needed at home and continuously at night. CTA shows right lower lobe PE without heart strain. Her lung masses are also enlarging and causing destructive changes to her left ribs. There is a small left pleural effusion and left lower lobe infiltrate suggestive of pneumonia. With the significant leukocytosis I already ordered blood cultures and treated with vancomycin and Zosyn. I discussed case with the hospitalist who advised giving Eliquis 10 mg for the PE. Patient chronically takes Valtrex 1 g once a day. Since she has a possible new outbreak I wanted to order an additional dose. Valtrex not available and the formulary here. She was given a dose of acyclovir 800 mg. I also suspect her pelvic pain may be from the underlying pelvic mets. She already has a fentanyl 50 mg patch on that was placed yesterday so I ordered topical lidocaine. Differential: Electrolyte abnormality, J LUIS, pneumonia, PE Test considered but not ordered: Patient's pelvis is stable and she has had no trauma so I did not order x-rays External records reviewed: Oncology note from Dr. Gutierrez on 07/31/2022 states she has non-small cell lung cancer with invasion into the parietal pleura and chest wall causing pain and metastasis in the lymph nodes, right adrenal gland and left superior pubic ramus. Plan was for palliative radiation to the left upper lobe lesion. She is in pain management. Lab Data Attestation: I reviewed the patient's lab results. Labs: Laboratory Results - last 24 hr 08/06/22 08/06/22 08/06/22 13:15 13:15 14:55 WBC 23.2 H RBC 3.34 L Hgb 9.1 L Hct 29.9 L MCV 89.5 MCH 27.2 MCHC 30.4 L RDW Std Deviation 48.1 H RDW Coeff of Diana 14.7 H Plt Count 306 MPV 12.6 H Immature Gran % (Auto) 0.600 Neut % (Auto) 81.7 H Lymph % (Auto) 6.5 L [place] % (Auto) 5.7 Eos % (Auto) 5.0 Baso % (Auto) 0.5 Absolute Neuts (auto) 19.0 H Absolute Lymphs (auto) 1.50 Nucleated RBC % 0 Sodium 133 L Potassium 4.7 Chloride 105 Carbon Dioxide 23.0 Anion Gap 5 BUN 39 H Creatinine 1.31 H Estim Creat Clear Calc 40.91 Est GFR (MDRD) Af Amer 54 L Est GFR (MDRD) Non-Af 44 L BUN/Creatinine Ratio 29.8 H Glucose 119 H Calcium 9.7 Urine Color Yellow Urine Clarity Clear Urine pH 5.0 Ur Specific [place] 1.020 Urine Protein 15 H Urine Glucose (UA) Normal Urine Ketones Negative Urine Occult Blood 10 H Urine Nitrite Negative Urine Bilirubin Negative Urine Urobilinogen 1 H Ur Leukocyte Esterase 25 H Urine RBC 0 SEEN Urine WBC 0-5 SEEN Ur Squamous Epith Cells 0-5 SEEN Urine Bacteria 0 SEEN Urine Mucus 0 SEEN Radiography Diagnostic Testing: Clinical Impression(s) from Imaging Studies Chest X-Ray 08/06/22 15:30 IMPRESSION: 70x 40mm left upper lobe mass. It appears to have enlarged Electronically Signed: Ankit Bean MD at 16:06 EDT , Chest CTA 08/06/22 15:59 IMPRESSION: 1. There is a right lower lobe demonstrated pulmonary embolism without heart strain. 2. Left upper lobe mass measures 55 x 55 x 36 mm. Mass appears necrotic with destructive changes to the underlying ribs. The mass has enlarged since the prior study. 3. There is a small left pleural effusion and a left lower lobe infiltrate suggestive of a pneumonia. 4. There is a left hilar mass which measures 25 mm. Electronically Signed: Ankit Bean MD at 17:11 EDT , ADDENDUM: 08/06/22 1732 IMPRESSION: 1. There is a right lower lobe demonstrated pulmonary embolism without heart strain. 2. Left upper lobe mass measures 55 x 55 x 36 mm. Mass appears necrotic with destructive changes to the underlying ribs. The mass has enlarged since the prior study. 3. There is a small left pleural effusion and a left lower lobe infiltrate suggestive of a pneumonia. 4. There is a left hilar mass which measures 25 mm. N.B. : The above Results were Read Back by Ankit Bean MD to MARYURI PEREZ, and understanding confirmed on 08/06/2022 17:25:07 (ET). Electronically Signed: Ankit Bean MD at 17:11 EDT , <Dr. Poncho Schreiber, DO - Last Filed: 08/10/22 22:41> [facility] Lab Data Attestation: I reviewed the patient's lab results. Labs: Laboratory Results - last 24 hr 08/06/22 08/06/22 08/06/22 13:15 13:15 14:55 WBC 23.2 H RBC 3.34 L Hgb 9.1 L Hct 29.9 L MCV 89.5 MCH 27.2 MCHC 30.4 L RDW Std Deviation 48.1 H RDW Coeff of Diana 14.7 H Plt Count 306 MPV 12.6 H Immature Gran % (Auto) 0.600 Neut % (Auto) 81.7 H Lymph % (Auto) 6.5 L [place] % (Auto) 5.7 Eos % (Auto) 5.0 Baso % (Auto) 0.5 Absolute Neuts (auto) 19.0 H Absolute Lymphs (auto) 1.50 Nucleated RBC % 0 Sodium 133 L Potassium 4.7 Chloride 105 Carbon Dioxide 23.0 Anion Gap 5 BUN 39 H Creatinine 1.31 H Estim Creat Clear Calc 40.91 Est GFR (MDRD) Af Amer 54 L Est GFR (MDRD) Non-Af 44 L BUN/Creatinine Ratio 29.8 H Glucose 119 H Calcium 9.7 Urine Color Yellow Urine Clarity Clear Urine pH 5.0 Ur Specific [place] 1.020 Urine Protein 15 H Urine Glucose (UA) Normal Urine Ketones Negative Urine Occult Blood 10 H Urine Nitrite Negative Urine Bilirubin Negative Urine Urobilinogen 1 H Ur Leukocyte Esterase 25 H Urine RBC 0 SEEN Urine WBC 0-5 SEEN Ur Squamous Epith Cells 0-5 SEEN Urine Bacteria 0 SEEN Urine Mucus 0 SEEN Radiography Diagnostic Testing: Clinical Impression(s) from Imaging Studies Chest X-Ray 08/06/22 15:30 IMPRESSION: 70x 40mm left upper lobe mass. It appears to have enlarged Electronically Signed: Ankit Bean MD at 16:06 EDT , Chest CTA 08/06/22 15:59 IMPRESSION: 1. There is a right lower lobe demonstrated pulmonary embolism without heart strain. 2. Left upper lobe mass measures 55 x 55 x 36 mm. Mass appears necrotic with destructive changes to the underlying ribs. The mass has enlarged since the prior study. 3. There is a small left pleural effusion and a left lower lobe infiltrate suggestive of a pneumonia. 4. There is a left hilar mass which measures 25 mm. Electronically Signed: Ankit Bean MD at 17:11 EDT , ADDENDUM: 08/06/22 1732 IMPRESSION: 1. There is a right lower lobe demonstrated pulmonary embolism without heart strain. 2. Left upper lobe mass measures 55 x 55 x 36 mm. Mass appears necrotic with destructive changes to the underlying ribs. The mass has enlarged since the prior study. 3. There is a small left pleural effusion and a left lower lobe infiltrate suggestive of a pneumonia. 4. There is a left hilar mass which measures 25 mm. N.B. : The above Results were Read Back by Ankit Bean MD to MARYURI PEREZ, and understanding confirmed on 08/06/2022 17:25:07 (ET). Electronically Signed: Ankit Bean MD at 17:11 EDT , <MARYURI Perez - Last Filed: 08/06/22 17:51> Critical Care Time Critical Care Time: Yes Critical care time (excluding procedures): 30-74 minutes, Discussing w/Patient &/or Family/Drop Board Man and Discussing w/Consultants Discharge Plan Dx/Rx/DC Orders Clinical Impression: Metastatic primary lung cancer, Acute kidney injury, Acute dehydration, Pulmonary embolism, Community acquired pneumonia, Pelvic pain, Herpes simplex virus (HSV) infection Disposition Disposition: [facility] Care [facility]
[2022-08-06] MEDS: 0.9% Normal Saline 1,000 ML 999 ML IV ×2 (13:57→16:54)
[2022-08-06 13:59] LABS: Basophil# 0.11 X10^3/uL; Basophil% 0.5 % (0-1); Eosinophil# 1.15 X10^3/uL; Hematocrit 29.9 % (37-47); Hemoglobin 9.1 g/dL (12.0-15.0); Lymphocyte % 6.5 % (19-41); Mean Corp Hgb Conc 30.4 g/dL (32-36); Mean Corpuscular Hgb 27.2 pg (27.0-32.0); Mean Corpuscular Volume 89.5 fL (81-99); Mean Platelet Vol. 12.6 fl (6.2-12.0); Monocyte# 1.31 X10^3/uL; Monocyte% 5.7 % (0-10); NRBC Flagged by Analyzer 0 % (0-5); Neutrophil # 18.96 X10^3/uL (2.7-7.7); Neutrophil % 81.7 % (47-70); Platelet Count 306 K/mm3 (150-450); RBC Distribution Width CV 14.7 % (11.6-14.6); RBC Distribution Width SD 48.1 fl (35.1-43.9); Red Blood Count 3.34 M/mm3 (4.2-5.4); White Blood Count 23.2 K/mm3 (4.4-11.0)
[2022-08-06 14:15] LABS: Anion Gap 5 (5-15); BUN 39 mg/dL (7-18); BUN/Creat Ratio 29.8 RATIO (10-20); Calcium,Total 9.7 mg/dL (8.5-10.1); Chloride 105 mmol/L (98-107); Creatinine, Serum 1.31 mg/dL (0.55-1.02); EST Glomerular Filtration Rate 44 mL/min (>60); Est Glom Filt Rate - Afr Amer 54 mL/min (>60); Estimated Creatinine Clearance 40.91 ml/min; Glucose 119 mg/dL (74-106); Potassium 4.7 mmol/L (3.5-5.1); Sodium Level 133 mmol/L (136-145)
[2022-08-06 14:59] LABS: Bacteria 0 SEEN /hpf (None Seen); Mucous, Urine 0 SEEN /hpf (<or=2+); Red Blood Cells-Urine 0 SEEN /hpf (0-5)
[2022-08-06 15:01] LABS: Color, Urine Yellow (Yellow); Glucose, Dipstick Normal (Normal); Ketone-Dipstick Negative (Negative); Leukocyte Esterase-Dipstick 25 /ul (Negative); Nitrite-Dipstick Negative (Negative); Occult Blood-Urine 10 /ul (Negative); Protein-Dipstick 15 mg/dl (Negative); Urine Bilirubin Dipstick Negative (Negative); Urine Clarity Clear (Clear); Urine Urobilinogen 1 mg/dl (Normal)
[2022-08-06 15:09] LABS: Squamous Epithelial Cells - UA 0-5 SEEN /hpf (5-10); White Blood Cells 0-5 SEEN /hpf (0-5)
--- NOTE | 2022-08-06 15:30 | RAD_ITS ---
STUDY: XR Chest 2 Views 08/06/2022 3:38 PM REASON FOR EXAM: Female, 56 years old. CHEST PAIN weakness COMPARISON: 07/04/2022 TECHNIQUE: XR Chest 2 Views FINDINGS: There is no demonstrated pleural abnormality. There are multiple median sternotomy wires. 70x 40mm left upper lobe mass. Normal heart size. Normal mediastinum. Normal valerio. Prominent appearing increased interstitial lung markings. Normal visualized pulmonary arteries. There is atherosclerotic calcification of the aortic arch with tortuosity. There are diffuse degenerative changes of the visualized thoracic spine. There is degenerative osteoarthritis of the bilateral shoulders. There is no demonstrated abnormality of the visualized soft tissue structures of the upper abdomen. RAD/Chest PA and Lateral IMPRESSION: 70x 40mm left upper lobe mass. It appears to have enlarged Electronically Signed: Ankit Bean MD at 16:06 EDT ,
--- NOTE | 2022-08-06 15:59 | CT_ITS ---
We are attempting to reach an attending provider to discuss findings. An addendum with communication details will be sent when the communication is complete. EXAM: CT ANGIOGRAPHY CHEST WITHOUT AND WITH INTRAVENOUS CONTRAST CLINICAL INDICATION: shortness of breath TECHNIQUE: Helically acquired angiography images were obtained of the chest without and with intravenous contrast. This CT exam was performed using one or more of the following dose reduction techniques: automated exposure control, adjustment of the mA and/or kV according to patient size, and/or use of iterative reconstruction technique. This report was created using [employer] report generation technology. MIP reconstructed images were created and reviewed. CONTRAST: IV 75mL [id number] RADIATION DOSE: CTDIvol = 12.31 mGy, DLP = 431.70 mGy-cm COMPARISON: 2.28. FINDINGS: PULMONARY ARTERIES: There is a right lower lobe demonstrated pulmonary embolism without heart strain. Normal in caliber. AORTA: There is atherosclerotic calcification of the aortic arch with tortuosity and elongation of the aortic arch and descending thoracic aorta. Normal in caliber. No evidence of dissection. GREAT VESSELS OF AORTIC ARCH: See above. LUNGS AND PLEURAL SPACES: Left upper lobe mass measures 55 x 55 x 36 mm. Mass appears necrotic with destructive changes to the underlying ribs. The mass has enlarged since the prior study. There is a small left pleural effusion and a left lower lobe infiltrate suggestive of a pneumonia. There is a left hilar mass which measures 25 mm. There are scattered blebs and bullae. This can be seen in pulmonary emphysema. HEART: There are calcifications of the coronary arteries. MEDIASTINUM: Mediastinal adenopathy. Esophagus is unremarkable. No hiatal hernia. THYROID: Unremarkable. No thyroid lesions. BONES/JOINTS: Multiple median sternotomy wires are noted consistent for cardiac surgery. There are degenerative changes of the shoulders. There are multi-level degenerative changes of the thoracic spine. CT/CTA Chest W/WO Contrast IMPRESSION: 1. There is a right lower lobe demonstrated pulmonary embolism without heart strain. 2. Left upper lobe mass measures 55 x 55 x 36 mm. Mass appears necrotic with destructive changes to the underlying ribs. The mass has enlarged since the prior study. 3. There is a small left pleural effusion and a left lower lobe infiltrate suggestive of a pneumonia. 4. There is a left hilar mass which measures 25 mm. Electronically Signed: Ankit Bean MD at 17:11 EDT ,
--- NOTE | 2022-08-06 17:11 | ED.RN ---
pt c/o pain in groin/suprapubic area. initially order fentanyl and zofran. pt currently has fentanyl patch. orders changed.
--- NOTE | 2022-08-06 17:16 | ED.RN ---
blood cx showing ordered. called lab and confirmed they did receive both sets of cx.
[2022-08-06] MEDS: Lidocaine/Prilocaine HCl 5 GM Tube 1 GM TOPICAL (17:20)
[2022-08-06] MEDS: Acyclovir 800 MG Tablet PO (17:26)
--- NOTE | 2022-08-06 18:06 | PCM.HP.STD ---
HPI - General General Date of Admission: 08/06/22 HPI Narrative EMILY WOOD, is a 56 F who presents to the hospital with left leg pain. She says that it was so bad and she felt so weak that she could not even get up to answer the door today when her sister came over. 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 It is possible that this pain could be due to metastatic disease. She says that her pain is generally controlled with the medication she takes at home. In the ER her left leg was freely mobile with no areas of point tenderness other than where the metastatic disease is. She does also take Valtrex daily for history of herpes and there are possible active lesions. She does chronically wear oxygen at 2 to 3 L nasal cannula at home but when she presented to the ER she was found to be hypotensive with a leukocytosis. The CT of the chest demonstrated a right subsegmental PE as well as possible left lower lobe pneumonia. She was started on IV antibiotics and given a dose of Eliquis. [facility] Medical History Atherosclerosis of coronary artery of [place] heart without angina pectoris Chronic back pain Collagenous colitis DDD (degenerative disc disease), lumbar Depression with anxiety Essential hypertension Hyperlipidemia Seizures Syncope and collapse Tobacco use Home Medications aspirin 81 mg tablet,delayed release 81 mg PO DAILY@0800 06/07/13 [History Last Taken 08/06/22] nitroglycerin 0.4 mg sublingual tablet 0.4 mg sublingual Q5M PRN Chest Pain 06/07/13 [History Last Taken 07/31/16] amlodipine 5 mg tablet 5 mg PO DAILY 12/12/18 [History Last Taken 08/06/22] citalopram 40 mg tablet 40 mg PO DAILY 12/12/18 [History Last Taken 08/06/22] dicyclomine 10 mg capsule 10 mg PO 4X/DAY PRN Pain Score 1-01/3012/12/18 [History Last Taken 08/01/22] levetiracetam 1,000 mg tablet 1,000 mg PO BID 12/12/18 [History Last Taken 08/06/22] metoprolol succinate 100 mg tablet,extended release 24 hr 100 mg PO DAILY 12/12/18 [History Last Taken 08/06/22] atorvastatin 40 mg tablet 40 mg PO QHS #90 tabs 01/20/19 [Rx Last Taken 08/05/22] lisinopril 20 mg tablet 20 mg PO BID #180 tabs 12/08/20 [Rx Last Taken 08/06/22] valacyclovir 1 gram tablet 1,000 mg PO DAILY 06/17/22 [History Last Taken 08/06/22] oxycodone-acetaminophen 5 mg-325 mg tablet (Percocet) 1 tab PO Q8H PRN pain 3 days #12 tabs 07/04/22 [Rx Last Taken 08/06/22] fentanyl 25 mcg/hr transdermal patch 1 patch transdermal Q72H 07/20/22 [History Last Taken 08/05/22] bisacodyl 10 mg rectal suppository (Dulcolax (bisacodyl)) 10 mg AL DAILY PRN Constipation 08/06/22 [History Last Taken 08/05/22] buspirone 5 mg tablet 5 mg PO BID ANXIETY 08/06/22 [History Last Taken Unknown] cholecalciferol (vitamin D3) 25 mcg (1,000 unit) tablet (Vitamin D3) 25 mcg PO DAILY SUPPLEMENT 08/06/22 [History Last Taken 08/06/22] fluticasone fur. 200 mcg-umeclid 62.5 mcg-vilant 25 mcg inhalat.powder (Trelegy Ellipta) 1 inh inhalation DAILY 08/06/22 [History Last Taken 08/06/22] fluticasone propionate 50 mcg/actuation nasal spray,suspension 1 spray intranasal DAILY ALLERGIES 08/06/22 [History Last Taken 08/06/22] isosorbide mononitrate 30 mg tablet,extended release 24 hr 30 mg PO DAILY ANGINA 08/06/22 [History Last Taken 08/06/22] lidocaine 5 % topical ointment 1 applic topical BID GENITAL PAIN 08/06/22 [History Last Taken 08/05/22] methylnaltrexone 150 mg tablet (Relistor) 450 mg PO DAILY CONSTIPATION, OPIOID-INDUCED 08/06/22 [History Last Taken Unknown] ondansetron 4 mg disintegrating tablet 4 mg PO Q8H PRN Nausea 08/06/22 [History Last Taken 08/06/22] polyethylene glycol 3350 17 gram/dose oral powder 17 g PO DAILY PRN Constipation 08/06/22 [History Last Taken 08/06/22] sennosides 8.6 mg tablet (senna) 8.6 mg PO DAILY PRN Constipation 08/06/22 [History Last Taken 08/06/22] Allergy/AdvReac Type Severity Reaction Status Date / Time oxycodone Allergy Intermediate Unknown Verified 08/01/22 09:22 codeine AdvReac Vomiting Verified 08/01/22 09:22 Family History (Reviewed 08/01/22 @ 09:33 by Mckenzie Allred DATA SCIENCES DIRECTOR, DATA SCIENCES DIRECTOR-C) Mother , Age 78 Diabetes Hypertension Heart disease Alzheimer's dementia Father , Age 57 Asthma CAD (coronary artery disease) Myocardial infarction Brother , 56 Heart disease Ischemic Cancer pancreatic Surgical History (Reviewed 08/01/22 @ 09:33 by Mckenzie Allred DATA SCIENCES DIRECTOR, DATA SCIENCES DIRECTOR-C) History of appendectomy History of cholecystectomy History of coronary artery bypass graft History of endometrial ablation History of tubal ligation Social History (Reviewed 08/01/22 @ 09:33 by Mckenzie Allred DATA SCIENCES DIRECTOR, DATA SCIENCES DIRECTOR-C) Smoking Status: Current every day smoker tobacco type: cigarettes alcohol intake: never substance use type: does not use caffeine: Yes Type: carbonated beverages Number of servings: 12 ROS Constitutional Constitutional: Denies chills, fatigue, fever(s) or malaise Eyes Eyes: Denies blurry vision ENT HEENT: Denies headache(s) or nasal discharge Cardiovascular Cardiovascular: Denies chest pain, dyspnea on exertion or syncope Respiratory/Chest Respiratory/Chest: Denies cough, shortness of breath at rest or shortness of breath with exertion Gastrointestinal Gastrointestinal: Denies constipation, diarrhea, nausea or vomiting Genitourinary Genitourinary: Denies dysuria Musculoskeletal Musculoskeletal: Reports joint pain Neurologic Neurologic: Denies focal weakness, numbness or tremor(s) Psychiatric Psychiatric: Denies anxiety or depression Vital Signs Vital Signs Vital Signs: 08/06/22 13:26 08/06/22 13:33 08/06/22 14:29 Temperature 97.5 F L Temperature Source Temporal Pulse Rate 86 Respiratory Rate 20 H Respiratory Effort Normal Respiratory Pattern Normal Blood Pressure 83/51 L Blood Pressure Mean 61 Pulse Ox 91 92 Oxygen Delivery Method Room Air Nasal Cannula Oxygen Flow Rate (L/min) 2.5 08/06/22 14:28 08/06/22 15:04 08/06/22 17:13 Temperature Temperature Source Pulse Rate 77 84 Respiratory Rate 18 14 Respiratory Effort Respiratory Pattern Blood Pressure 101/58 L 108/62 Blood Pressure Mean 72 77 Pulse Ox 89 90 94 Oxygen Delivery Method Room Air Nasal Cannula Nasal Cannula Oxygen Flow Rate (L/min) 2 2 Weight Weight: 154 lb Body Mass Index (BMI) 26.4 Physical Exam Narrative General: Alert, Oriented x3, Cooperative, No apparent distress HEENT: Atraumatic, PERRLA, EOMI, Normocephalic Oral: Moist Mucosa Neck: Supple, No JVD Lungs: Diminished, Normal air movement, No rhonchi, No wheeze, No rales, mild left basilar crackles Cardiovascular: Regular rate, Regular Rhythm, Normal S1, Normal S2, No murmurs Abdomen: Soft, Non Tender, Non-Distended, No Hepato-splenomegaly Extremities: No edema, Capillary Refill Less than 3 Seconds Skin: No rashes, No breakdown Musculoskeletal: No Tenderness to Palpation of Joints or Extremities Neurological: Motor Exam 5/5 strength throughout, Sensory exam intact to light touch and pain Psych/Mental Status: Tearful and depressed Results Lab / Micro Data Result Diagrams: 08/06/22 13:15 08/06/22 13:15 Labs: Laboratory Results - last 24 hr 08/06/22 13:15: WBC 23.2 H, RBC 3.34 L, Hgb 9.1 L, Hct 29.9 L, MCV 89.5, MCH 27.2, MCHC 30.4 L, RDW Std Deviation 48.1 H, RDW Coeff of Diana 14.7 H, Plt Count 306, MPV 12.6 H, Immature Gran % (Auto) 0.600, Neut % (Auto) 81.7 H, Lymph % (Auto) 6.5 L, [place] % (Auto) 5.7, Eos % (Auto) 5.0, Baso % (Auto) 0.5, Absolute Neuts (auto) 19.0 H, Absolute Lymphs (auto) 1.50, Nucleated RBC % 0 08/06/22 13:15: Sodium 133 L, Potassium 4.7, Chloride 105, Carbon Dioxide 23.0, Anion Gap 5, BUN 39 H, Creatinine 1.31 H, Estim Creat Clear Calc 40.91, Est GFR (MDRD) Af Amer 54 L, Est GFR (MDRD) Non-Af 44 L, BUN/Creatinine Ratio 29.8 H, Glucose 119 H, Calcium 9.7 08/06/22 14:55: Urine Color Yellow, Urine Clarity Clear, Urine pH 5.0, Ur Specific [place] 1.020, Urine Protein 15 H, Urine Glucose (UA) Normal, Urine Ketones Negative, Urine Occult Blood 10 H, Urine Nitrite Negative, Urine Bilirubin Negative, Urine Urobilinogen 1 H, Ur Leukocyte Esterase 25 H, Urine RBC 0 SEEN, Urine WBC 0-5 SEEN, Ur Squamous Epith Cells 0-5 SEEN, Urine Bacteria 0 SEEN, Urine Mucus 0 SEEN Radiology Impression Chest X-Ray 08/06/22 15:30 IMPRESSION: 70x 40mm left upper lobe mass. It appears to have enlarged Electronically Signed: Ankit Bean MD at 16:06 EDT , Chest CTA 08/06/22 15:59 IMPRESSION: 1. There is a right lower lobe demonstrated pulmonary embolism without heart strain. 2. Left upper lobe mass measures 55 x 55 x 36 mm. Mass appears necrotic with destructive changes to the underlying ribs. The mass has enlarged since the prior study. 3. There is a small left pleural effusion and a left lower lobe infiltrate suggestive of a pneumonia. 4. There is a left hilar mass which measures 25 mm. Electronically Signed: Ankit Bean MD at 17:11 EDT , ADDENDUM: 08/06/22 1732 IMPRESSION: 1. There is a right lower lobe demonstrated pulmonary embolism without heart strain. 2. Left upper lobe mass measures 55 x 55 x 36 mm. Mass appears necrotic with destructive changes to the underlying ribs. The mass has enlarged since the prior study. 3. There is a small left pleural effusion and a left lower lobe infiltrate suggestive of a pneumonia. 4. There is a left hilar mass which measures 25 mm. N.B. : The above Results were Read Back by Ankit Bean MD to MARYURI MORALES, and understanding confirmed on 08/06/2022 17:25:07 (ET). Electronically Signed: Ankit Bean MD at 17:11 EDT , Assessment & Plan Assessment/Plan (1) Acute kidney injury: (2) Pulmonary embolism: (3) Community acquired pneumonia: PLAN: Plan 1. Community-acquired pneumonia with an J LUIS in the setting of stage IV squamous cell carcinoma of the left lung/new right segmental PE/asthma-COPD overlap syndrome with chronic hypoxia ? Squamous cell carcinoma is metastatic with erosion into the left chest wall as well as mediastinal lymph nodes, right adrenal gland, left superior pubic ramus ? She is currently undergoing palliative radiation she missed her Sunday treatment ? We will try to obtain a sputum culture ? Given her immunocompromise state with her cancer, will treat her with broad-spectrum antibiotics ? We will place her on Eliquis as she is not tachycardic or hypoxic and likely no heart strain will not do an echo ? Continue with IV fluids for her J LUIS, her baseline creatinine is around 0.6 and she is currently 1.1 ? We will continue all of her home pain medications and can adjust if necessary ? We will continue with her home valacyclovir ? Given all of her narcotics for her cancer pain we will continue with her bowel regimen ? I did have a 18-minute advance care planning discussion about her diagnosis and CODE STATUS ? Discussed tobacco cessation given that she continues to smoke a few cigarettes throughout the day 2. HTN/HLD ? Can resume her home Lipitor ? Given her infection and her borderline blood pressures can hold her home blood pressure medications for now 3. Anxiety/depression ? Understandably she is going through a lot and is struggling with her new cancer diagnosis ? We will continue with her home medications ? I did recommend outpatient therapy versus support groups for cancer patients hopefully social work and/or case management can assist 4. Seizure disorder ? Stable ? Continue with her p.o. Keppra DVT: Claire I spent 75 minutes in direct patient care as well as chart review, and documentation Charges/Coding Visit Charges Inpatient E&M: 56934 Init Hosp L3 Procedures Hospitalists Procedures: 10766 Advncd Care Plan 30 Min
[2022-08-06] MEDS: APIXABAN 5 MG TABLET 10 MG PO (18:18)
--- NOTE | 2022-08-06 19:28 | PCM.RX.CS ---
Consult Pharmacy has been consulted to manage selected antiobiotic: Vancomycin Type of Consult: New start Suspected Infection: Pneumonia Prior Doses of Antibiotics Received/Current Regimen: Medications Vancomycin HCl () 500 mg in 100 mls @ 100 mls/hr IV Q12H MANA Discontinued Medications Vancomycin HCl 1,750 mg/ (Sodium Chloride) 535 mls @ 250 mls/hr IV X1 ONE Stop: 08/06/22 19:08 Last Admin: 08/06/22 17:49 Dose: 250 mls/hr Labs: Sodium 133 mmol/L (136-145) L 08/06/22 13:15 Potassium 4.7 mmol/L (3.5-5.1) 08/06/22 13:15 Chloride 105 mmol/L (98-107) 08/06/22 13:15 Carbon Dioxide 23.0 mmol/L (21.0-32.0) 08/06/22 13:15 Anion Gap 5 (5-15) 08/06/22 13:15 BUN 39 mg/dL (7-18) H 08/06/22 13:15 Creatinine 1.31 mg/dL (0.55-1.02) H 08/06/22 13:15 Est GFR (MDRD) Af Amer 54 mL/min (>60) L 08/06/22 13:15 Est GFR (MDRD) Non-Af 44 mL/min (>60) L 08/06/22 13:15 BUN/Creatinine Ratio 29.8 RATIO (10-20) H 08/06/22 13:15 Glucose 119 mg/dL (74-106) H 08/06/22 13:15 Weight used for dosin kg Estimated Creatinine Clearance: 41 Goal Trough: 15-20 mcg/mL Pharmacy Plan for Drug Dosing: Pharmacy Service will continue to monitor and adjust dosing as required. Follow-Up Labs: Trough Vancomycin Labs to be done on [date and time ordered]: 08/08/22 @7931
[2022-08-06] MEDS: Lidocaine 5% 35GM Tube 1 APPLIC TOPICAL (21:34)
[2022-08-06] MEDS: 0.9% Normal Saline 1,000 ML 125 ML IV (21:35)
[2022-08-06] MEDS: levETIRAcetam 1,000 MG Tablet 1000 MG PO (21:35)
[2022-08-06] MEDS: Atorvastatin Calcium 40 MG Tablet PO (21:35)
[2022-08-07] VITALS (13 sets, daily range): BP systolic 83–102; BP diastolic 46–64; PULSE 76–95; RESP 16–18; TEMP 36.4–39.2; O2SAT 88–98
[2022-08-07] MEDS: 0.9% Normal Saline 1,000 ML 125 ML IV ×3 (05:12→23:43)
[2022-08-07] MEDS: Vancomycin IV 500 MG/100 ML BAG 100 MG IV ×2 (05:12→20:11)
[2022-08-07] MEDS: Acetaminophen 325 MG Tablet 650 MG PO (05:40)
[2022-08-07] MEDS: Ondansetron 4 MG/2 ML Vial IV (05:53)
[2022-08-07] MEDS: 0.9% Saline Lock 10 ML Syringe IV ×2 (05:53→15:13)
[2022-08-07 06:03] LABS: Absolute Lymphocyte Count 0.84 X10^3/uL (0.83-4.51); Absolute Neutrophil Count 11.7 X10^3/uL (2.0-7.7); Basophil# 0.07 X10^3/uL; Basophil% 0.5 % (0-1); Eosinophil# 1.12 X10^3/uL; Eosinophils% 7.6 % (0-5); Hematocrit 25.6 % (37-47); Hemoglobin 7.9 g/dL (12.0-15.0); Lymphocyte # 0.84 X10^3/ul (0.83-4.51); Lymphocyte % 5.7 % (19-41); Mean Corp Hgb Conc 30.9 g/dL (32-36); Mean Corpuscular Hgb 27.7 pg (27.0-32.0); Mean Corpuscular Volume 89.8 fL (81-99); Mean Platelet Vol. 11.7 fl (6.2-12.0); Monocyte# 0.99 X10^3/uL; Monocyte% 6.7 % (0-10); NRBC Flagged by Analyzer 0 % (0-5); Neutrophil # 11.71 X10^3/uL (2.7-7.7); Platelet Count 235 K/mm3 (150-450); RBC Distribution Width CV 14.8 % (11.6-14.6); Red Blood Count 2.85 M/mm3 (4.2-5.4); White Blood Count 14.8 K/mm3 (4.4-11.0)
[2022-08-07] MEDS: 0.9% Normal Saline 1,000 ML 999 ML IV ×2 (06:49→09:08)
[2022-08-07 07:00] LABS: Allen Test Positive; Base Excess -5 mmol/L (-2 to +2); Bicarbonate 21.2 mmol/L (22-26); Blood Gas Specimen Type ART; O2 Delivery Device Cannula; PO2 80 mmHG (75-100); SITE L Brach; SO2 95 % (95-99); Total Carbon Dioxide 22 mmol/L; pCO2 39.2 mmHg (35-45); pH 7.34 (7.35-7.45)
[2022-08-07 07:01] LABS: Anion Gap 5 (5-15); BUN 19 mg/dL (7-18); BUN/Creat Ratio 30.8 RATIO (10-20); Calcium,Total 8.1 mg/dL (8.5-10.1); Chloride 111 mmol/L (98-107); Creatinine, Serum 0.62 mg/dL (0.55-1.02); EST Glomerular Filtration Rate 106 mL/min (>60); Est Glom Filt Rate - Afr Amer 128 mL/min (>60); Estimated Creatinine Clearance 86.45 ml/min; Glucose 105 mg/dL (74-106); Potassium 4.3 mmol/L (3.5-5.1); Sodium Level 137 mmol/L (136-145)
[2022-08-07 07:52] LABS: Lactic Acid 0.6 mmol/L (0.4-1.9)
--- NOTE | 2022-08-07 08:45 | PN.HOSP_ITS ---
Reason for Visit Reason for Visit: Diagnoses Other pulmonary embolism without acute cor pulmonale (08/06/22) Pneumonia, unspecified organism (08/06/22) Acute kidney failure, unspecified (08/06/22) Subjective Subjective More short of breath. Increased oxygen requirments. Objective Data Objective Data Vital Signs: Vital Signs Temp Pulse Resp BP Pulse Ox O2 Del Method O2 Flow Rate 36.9 C 76 18 83/46 L 92 Nasal Cannula 8 08/07/22 07:30 08/07/22 07:30 08/07/22 07:30 08/07/22 07:30 08/07/22 07:30 08/07/22 07:30 08/07/22 07:30 Oxygen Flow Rate (L/min) 8 Oxygen Delivery Method Nasal Cannula Weight: 69.853 kg Body Mass Index (BMI) 26.4 Intake & Output: Intake and Output for Last 24 Hours 08/05/22 08/06/22 08/07/22 23:59 23:59 23:59 Intake Total 2585 / 2805 1824.16 / 1824.16 Output Total 400 / 400 Balance 2585 / 2405 1424.16 / 1424.16 Lab / Micro Data Result Diagrams: 08/07/22 05:15 08/07/22 05:15 Labs: Laboratory Results - last 24 hr 08/06/22 13:15: WBC 23.2 H, RBC 3.34 L, Hgb 9.1 L, Hct 29.9 L, MCV 89.5, MCH 27 .2, MCHC 30.4 L, RDW Std Deviation 48.1 H, RDW Coeff of Diana 14.7 H, Plt Count 306, MPV 12.6 H, Immature Gran % (Auto) 0.600, Neut % (Auto) 81.7 H, Lymph % (Auto) 6.5 L, [place] % (Auto) 5.7, Eos % (Auto) 5.0, Baso % (Auto) 0.5, Absolute Neuts (auto) 19.0 H, Absolute Lymphs (auto) 1.50, Nucleated RBC % 0 08/06/22 13:15: Sodium 133 L, Potassium 4.7, Chloride 105, Carbon Dioxide 23.0, Anion Gap 5, BUN 39 H, Creatinine 1.31 H, Estim Creat Clear Calc 40.91, Est GFR (MDRD) Af Amer 54 L, Est GFR (MDRD) Non-Af 44 L, BUN/Creatinine Ratio 29.8 H, Glucose 119 H, Calcium 9.7 08/06/22 14:55: Urine Color Yellow, Urine Clarity Clear, Urine pH 5.0, Ur Specific [place] 1.020, Urine Protein 15 H, Urine Glucose (UA) Normal, Urine Ketones Negative, Urine Occult Blood 10 H, Urine Nitrite Negative, Urine Bilirubin Negative, Urine Urobilinogen 1 H, Ur Leukocyte Esterase 25 H, Urine RBC 0 SEEN, Urine WBC 0-5 SEEN, Ur Squamous Epith Cells 0-5 SEEN, Urine Bacteria 0 SEEN, Urine Mucus 0 SEEN 08/07/22 05:15: WBC 14.8 H, RBC 2.85 L, Hgb 7.9 L, Hct 25.6 L, MCV 89.8, MCH 27.7, MCHC 30.9 L, RDW Std Deviation 49.0 H, RDW Coeff of Diana 14.8 H, Plt Count 235, MPV 11.7, Immature Gran % (Auto) 0.500, Neut % (Auto) 79.0 H, Lymph % (Auto) 5.7 L, [place] % (Auto) 6.7, Eos % (Auto) 7.6 H, Baso % (Auto) 0.5, Absolute Neuts (auto) 11.7 H, Absolute Lymphs (auto) 0.84, Nucleated RBC % 0 08/07/22 05:15: Sodium 137, Potassium 4.3, Chloride 111 H, Carbon Dioxide 21.0, Anion Gap 5, BUN 19 H, Creatinine 0.62, Estim Creat Clear Calc 86.45, Est GFR (MDRD) Af Amer 128, Est GFR (MDRD) Non-Af 106, BUN/Creatinine Ratio 30.8 H, Glucose 105, Calcium 8.1 L 08/07/22 07:16: Lactic Acid 0.6 ABG Data ABG results: ABG 08/07/22 06:56 Specimen Type ART Sample Site L Brach pH 7.34 L Bicarbonate Actual 21.2 L Total CO2 22 Base Excess -5 L O2 Saturation 95 ABG pCO2 39.2 ABG pO2 80 Brent Test Positive O2 Delivery Device Cannula Liter Flow 8.0 Radiography Diagnostic Testing: Radiology Impression Chest X-Ray 08/06/22 15:30 IMPRESSION: 70x 40mm left upper lobe mass. It appears to have enlarged Electronically Signed: Ankit Bean MD at 16:06 EDT , Chest CTA 08/06/22 15:59 IMPRESSION: 1. There is a right lower lobe demonstrated pulmonary embolism without heart strain. 2. Left upper lobe mass measures 55 x 55 x 36 mm. Mass appears necrotic with destructive changes to the underlying ribs. The mass has enlarged since the prior study. 3. There is a small left pleural effusion and a left lower lobe infiltrate suggestive of a pneumonia. 4. There is a left hilar mass which measures 25 mm. Electronically Signed: Ankit Bean MD at 17:11 EDT , ADDENDUM: 08/06/22 1732 IMPRESSION: 1. There is a right lower lobe demonstrated pulmonary embolism without heart strain. 2. Left upper lobe mass measures 55 x 55 x 36 mm. Mass appears necrotic with destructive changes to the underlying ribs. The mass has enlarged since the prior study. 3. There is a small left pleural effusion and a left lower lobe infiltrate suggestive of a pneumonia. 4. There is a left hilar mass which measures 25 mm. N.B. : The above Results were Read Back by Ankit Bean MD to MARYURI MORALES, and understanding confirmed on 08/06/2022 17:25:07 (ET). Electronically Signed: Ankit Bean MD at 17:11 EDT , Physical Exam Const alert and no apparent distress HEENT head/scalp atraumatic and moist oral mucous membranes Resp normal respiratory effort, no retractions, no use of accessory muscles and clear to auscultation bilaterally Cardio regular rate, regular rhythm, S1 normal heart sound and S2 normal heart sound GI normal to inspection, nondistended, normoactive bowel sounds, soft to palpation, non-tender and non-distended Extremity normal to inspection Neuro oriented x3 and CN's II-XII intact bilaterally Assessment & Plan Assessment/Plan (1) Community acquired pneumonia: QUALIFIERS: Laterality: unspecified laterality Qualified Code(s): J18.9 - Pneumonia, unspecified organism PLAN: Suspected pneumococcal pneumonia with an J LUIS in the setting of stage IV squamous cell carcinoma of the left lung/new right segmental PE/asthma-COPD overlap syndrome with chronic hypoxia We will try to obtain a sputum culture On pip/tazo and vanc We will continue with her home valacyclovir Increased oxygen requirements PEP therapy (2) Pulmonary embolism: PLAN: Likely malignancy-induced DC apixaban and start enoxaparin Troponin 5. Echo pending. (3) Acute kidney injury: PLAN: resovled with IVF (4) Hypotension: PLAN: appears chronic based on prior vitals lisinopril currently held metoprolol succinate currently held. continue IVF monitor (5) Metastatic primary lung cancer: PLAN: Sq cell carcinoma metastatic left chest wall, mediastinal LN, right adreanl gland and left superior pubic rami. undergoing palliative XRT CT left upper lobe mass [id number]. appears necrotic with small left pleural effusion DW family member on phone. Explained she currently is not a candidate for XRT (she missed last Sunday and today) until she is more stable Reviewed Oncology note from 07/31: plan to imitate systemic therapy after palliative chemotherapy. DW family and patient about poor overall prognosis given metastatic cancer. Reiterated that she is undergoing palliative treatment. (6) COPD exacerbation: PLAN: add BDs and methylpred PLAN: Plan Chronic conditions: * HTN/HLD? Can resume her home Lipitor? Given her infection and her borderline blood pressures can hold her home blood pressure medications for now * Anxiety/depression? Understandably she is going through a lot and is struggling with her new cancer diagnosis? We will continue with her home medications? I did recommend outpatient therapy versus support groups for cancer patients hopefully social work and/or case management can assist * Seizure disorder? Stable? Continue with her p.o. Keppra DVT prophylaxis not indicated as she is anticoagulated Charges/Coding Visit Charges Inpatient E&M: 56804 Subs Hosp L2
--- NOTE | 2022-08-07 08:53 | ECHOD_ITS ---
Reason For Study: EMBOLI Procedure This was a 2D Doppler, Color Flow transthoracic echocardiogram. Exam performed portable in patient room. Left Ventricle Normal left ventricle. The estimated ejection fraction is 55-60 %. Right Ventricle Normal right ventricle. Normal systolic function. Atria Normal left atrium. Normal right atrium. Mitral Valve The mitral valve is structurally normal. No prolapse or stenosis seen. Trivial mitral valve insufficiency. Tricuspid Valve Normal tricuspid valve. Mild tricuspid valve insufficiency. Aortic Valve Normal aortic valve. Pulmonic Valve The pulmonic valve is not well visualized. Great Vessels Normal aortic root. Pericardium/Pleural No pericardial effusion. MMode/2D Measurements & Calculations LVIDd: 5.3 cm IVSd: 1.1 cm Ao root diam: 3.5 cm LVIDs: 3.6 cm LVPWd: 0.98 cm RVDd: 3.2 cm FS: 32.1 % LAV(MOD-bp): 57.9 ml LA A4 area: 19.2 cm2 LA dimension(2D): 4.3 cm LAV(MOD-bp) Indexed: 33.5 ml/m2 LAV(MOD-sp2): 60.0 ml LAV(MOD-sp4): 54.7 ml RA A4 area: 14.9 cm2 Time Measurements MV dec time: 0.19 sec Doppler Measurements & Calculations MV E max osman: 94.2 cm/sec Lat Peak E' Osman: 10.2 cm/sec Med Peak E' Osman: 8.5 cm/sec MV A max osman: 76.7 cm/sec E/E' lat: 9.3 E/E' med: 11.1 MV E/A: 1.2 Ao V2 max: 143.1 cm/sec LV V1 max: 112.2 cm/sec TR max osman: 274.1 cm/sec Ao max P.2 mmHg LV V1 max P.0 mmHg TR max P.1 mmHg Ao V2 mean: 101.0 cm/sec LV V1 mean P.8 mmHg Ao mean P.6 mmHg LV V1 mean: 79.4 cm/sec Ao V2 VTI: 31.9 cm LV V1 VTI: 22.6 cm AV (velocity ratio): 0.71 ECHO/Echo Complete Interpretation Summary The estimated ejection fraction is 55-60 %. Normal LV systolic function Mild TR No previous echo to compare Ordering Physician: Brian Ren Referring Physician: Joseph Ortiz Performed By: Stacey Johns, DARINEL, RVT
[2022-08-07] MEDS: busPIRone 5 MG Tablet PO (09:11)
[2022-08-07] MEDS: levETIRAcetam 1,000 MG Tablet 1000 MG PO ×2 (09:12→20:16)
[2022-08-07] MEDS: Citalopram 40 MG TABLET PO (09:12)
[2022-08-07] MEDS: Acyclovir 200 MG Capsule 400 MG PO ×2 (09:13→20:16)
[2022-08-07] MEDS: Lidocaine 5% 35GM Tube 1 APPLIC TOPICAL ×2 (09:17→20:16)
[2022-08-07 09:28] LABS: Troponin-I HS 5 pg/mL (3.0-54.0)
[2022-08-07] MEDS: Enoxaparin 80 MG/0.8 ML Syringe 70 MG SC ×2 (10:30→19:00)
--- NOTE | 2022-08-07 12:15 | CASEMGMT ---
RN?CM?COMMUTATOR PRESSER?CM?to room to meet with patient for initial transition planning/care coordination?assessment.?RN?CM?introduced self and role at [facility].? Pt voices understanding and consents to?assessment?at this time.? Pt resting in bed in no distress at this time.? Dtr/Giovana, son/Brayan, and a couple other family members @ bedside and pt agreeable to all of them being present during assessment. Pt is A/O at this time and answers all questions appropriately. She did have some difficulty recalling all of the following information, so more details obtained from the family members. Care providers, pharmacy, and demographics verified/updated at this time. PCP:Dr Ortiz Specialists: Dr Gutierrez-oncology, Dr Sutherland-radiation oncology, Dr Lyons-pulmonology, Dr Mueller-pain mgmt. Preferred Pharmacy: [facility] Retail Insurance: [facility] Dual Prescription Benefit:?Yes LNOK:Dtr-Giovana. Son-Brayan. Sig other, Janes Living Arrangements: Lives alone in one-story home w/2 small steps to enter. Indep w/ADL's. Family live close and are very involved w/pt. Someone stops in and checks on pt daily. Dtr, Giovana, is often @ her home. Giovana does med mgmt, grocery shopping/meals, laundry, and cleaning. Family have stayed w/pt 13/11 in the past when needed and are able to this again, if needed. Transportation:?family DME: ?Pt has the following DME:?cane, pulse ox, O2 through [employer].Pt states she mostly wears it @ HS @ 2-2.5 l/m. Pt has concentrator and portable tanks and family can bring a tank in for pt to go home on. ?Pt and family states no need for further DME at this time.? HHC/SNF: No hx of either. Pt and family state, if SNF is needed @ d/c, they would be agreeable. If pt able to d/c home, then they are interested in HHC. PT/OT evals pending. PLAN:??TBD by course of tx and progress w/therapy Jessica STONEN?RN?CM
--- NOTE | 2022-08-07 15:29 | NURSING ---
Patient off unit for 1400 vitals.
--- NOTE | 2022-08-07 17:36 | NURSING ---
Per pharmacy, start Vanc when Zosyn is done and pharmacy will adjust if needed.
[2022-08-07] MEDS: Ipratropium/Albuterol Sulfate 3 ML AMPUL.NEB INHALATION (19:04)
--- NOTE | 2022-08-07 19:53 | CPS ---
pt did not want to do at this time-many family in room
[2022-08-07] MEDS: Atorvastatin Calcium 40 MG Tablet PO (20:16)
--- NOTE | 2022-08-07 20:20 | NURSING ---
Pt requesting meds early, c.o being tired.
[2022-08-08] VITALS (15 sets, daily range): BP systolic 104–112; BP diastolic 49–67; PULSE 64–91; RESP 16–20; TEMP 36.4–36.9; O2SAT 90–96
[2022-08-08] MEDS: Enoxaparin 80 MG/0.8 ML Syringe 70 MG SC ×2 (05:11→17:01)
[2022-08-08] MEDS: Ipratropium/Albuterol Sulfate 3 ML AMPUL.NEB INHALATION ×4 (06:44→20:12)
[2022-08-08 07:44] LABS: Absolute Lymphocyte Count 0.76 X10^3/uL (0.83-4.51); Absolute Neutrophil Count 11.3 X10^3/uL (2.0-7.7); Basophil# 0.03 X10^3/uL; Basophil% 0.2 % (0-1); Hematocrit 26.7 % (37-47); Hemoglobin 7.9 g/dL (12.0-15.0); Lymphocyte # 0.76 X10^3/ul (0.83-4.51); Lymphocyte % 6.1 % (19-41); Mean Corp Hgb Conc 29.6 g/dL (32-36); Mean Corpuscular Hgb 27.4 pg (27.0-32.0); Mean Corpuscular Volume 92.7 fL (81-99); Mean Platelet Vol. 11.6 fl (6.2-12.0); Monocyte# 0.12 X10^3/uL; NRBC Flagged by Analyzer 0 % (0-5); Neutrophil # 11.33 X10^3/uL (2.7-7.7); Neutrophil % 91.4 % (47-70); Platelet Count 224 K/mm3 (150-450); RBC Distribution Width CV 14.7 % (11.6-14.6); Red Blood Count 2.88 M/mm3 (4.2-5.4); White Blood Count 12.4 K/mm3 (4.4-11.0)
[2022-08-08 08:04] LABS: Anion Gap 4 (5-15); BUN 13 mg/dL (7-18); BUN/Creat Ratio 23.2 RATIO (10-20); Chloride 115 mmol/L (98-107); Creatinine, Serum 0.56 mg/dL (0.55-1.02); EST Glomerular Filtration Rate 118 mL/min (>60); Est Glom Filt Rate - Afr Amer 143 mL/min (>60); Estimated Creatinine Clearance 95.71 ml/min; Glucose 182 mg/dL (74-106); Potassium 3.9 mmol/L (3.5-5.1); Sodium Level 138 mmol/L (136-145)
[2022-08-08 08:16] LABS: Vancomycin, Trough Level 9.5 ug/mL (5.0-15.0)
--- NOTE | 2022-08-08 08:22 | PN.HOSP_ITS ---
Reason for Visit Reason for Visit: Diagnoses Malignant neoplasm of unspecified part of unspecified bronchus or lung ( 3) Other pulmonary embolism without acute cor pulmonale (08/06/22) Hypotension, unspecified (08/06/22) Pneumonia, unspecified organism (08/06/22) Chronic obstructive pulmonary disease with (acute) exacerbation (08/06/22) Acute kidney failure, unspecified (08/06/22) Subjective Subjective Had XRT yesterday. Increased oxygen requirments. Objective Data Objective Data Vital Signs: Vital Signs Temp Pulse Resp BP Pulse Ox O2 Del Method O2 Flow Rate 36.9 C 88 20 H 104/56 L 90 Nasal Cannula 10 08/08/22 06:42 08/08/22 06:44 08/08/22 06:44 08/08/22 06:42 08/08/22 07:44 08/08/22 07:44 08/08/22 07:44 Oxygen Flow Rate (L/min) 10 Oxygen Delivery Method Nasal Cannula Weight: 69.9 kg Body Mass Index (BMI) 26.4 Intake & Output: Intake and Output for Last 24 Hours 08/06/22 08/07/22 08/08/22 23:59 23:59 23:59 Intake Total 2585 / 2805 5927.08 / 5927.08 50 / 50 Output Total 1050 / 1050 Balance 2585 / 2405 4877.08 / 4877.08 50 / 50 Lab / Micro Data Result Diagrams: 08/08/22 07:30 08/08/22 07:30 Labs: Laboratory Results - last 24 hr 08/07/22 05:15: Troponin I High Sens 5 08/08/22 07:30: WBC 12.4 H, RBC 2.88 L, Hgb 7.9 L, Hct 26.7 L, MCV 92.7, MCH 27.4, MCHC 29.6 L, RDW Std Deviation 50.0 H, RDW Coeff of Diana 14.7 H, Plt Count 224, MPV 11.6, Immature Gran % (Auto) 1.300 H, Neut % (Auto) 91.4 H, Lymph % (Auto) 6.1 L, Dane % (Auto) 1.0, Eos % (Auto) 0.0, Baso % (Auto) 0.2, Absolute Neuts (auto) 11.3 H, Absolute Lymphs (auto) 0.76 L, Nucleated RBC % 0 08/08/22 07:30: Sodium 138, Potassium 3.9, Chloride 115 H, Carbon Dioxide 19.0 L , Anion Gap 4 L, BUN 13, Creatinine 0.56, Estim Creat Clear Calc 95.71, Est GFR (MDRD) Af Amer 143, Est GFR (MDRD) Non-Af 118, BUN/Creatinine Ratio 23.2 H, Glucose 182 H, Calcium 8.0 L 08/08/22 07:30: Vancomycin Trough 9.5 Radiography Diagnostic Testing: Radiology Impression Echocardiogram 08/07/22 08:53 Interpretation Summary The estimated ejection fraction is 55-60 %. Normal LV systolic function Mild TR No previous echo to compare Ordering Physician: Brian Ren Referring Physician: Joseph Ortiz Performed By: Stacey Johns, DARINEL, RVT Physical Exam Const alert Constitutional Narrative: no respiratory distress. no conversational dyspnea. Resp normal respiratory effort and no retractions Resp Narrative: coarse wheezes bilaterally. 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 Advised on need to use and proper usage. (2) Pulmonary embolism: PLAN: Likely malignancy-induced DC apixaban and start enoxaparin Troponin 5. Echo EF 55-60% (3) Acute kidney injury: PLAN: resovled with IVF (4) Hypotension: PLAN: appears chronic based on prior vitals lisinopril currently held metoprolol succinate currently held. continue IVF monitor (5) Metastatic primary lung cancer: PLAN: Sq cell carcinoma metastatic left chest wall, mediastinal LN, right adreanl gland and left superior pubic rami. undergoing palliative XRT CT left upper lobe mass [id number]. appears necrotic with small left pleural effusion DW family member on phone. Explained she currently is not a candidate for XRT (she missed last Sunday and today) until she is more stable Reviewed Oncology note from 07/31: plan to imitate systemic therapy after palliative chemotherapy. DW family and patient about poor overall prognosis given metastatic cancer. Reiterated that she is undergoing palliative treatment. (6) COPD exacerbation: PLAN: add BDs and methylpred (7) Acute and chronic respiratory failure: PLAN: 2/2 lung cancer, pneumonia, PE, pleural effusion, COPD increased oxygen requirements. methylpred, BDs PEP PLAN: Plan Chronic conditions: * HTN/HLD? Can resume her home Lipitor? Given her infection and her borderline blood pressures can hold her home blood pressure medications for now * Anxiety/depression? Understandably she is going through a lot and is struggling with her new cancer diagnosis? We will continue with her home medications? I did recommend outpatient therapy versus support groups for cancer patients hopefully social work and/or case management can assist * Seizure disorder? Stable? Continue with her p.o. Keppra DVT prophylaxis not indicated as she is anticoagulated ALYX with 2 friends over the phone. Explained treatment is palliative to provide quality of life. Charges/Coding Visit Charges Inpatient E&M: 58734 Subs Hosp L2
[2022-08-08] MEDS: Lidocaine 5% 35GM Tube 1 APPLIC TOPICAL ×2 (08:52→22:08)
[2022-08-08] MEDS: fentaNYL 25 MCG Patch TD (08:52)
[2022-08-08] MEDS: Acyclovir 200 MG Capsule 400 MG PO ×2 (08:52→22:11)
[2022-08-08] MEDS: levETIRAcetam 1,000 MG Tablet 1000 MG PO ×2 (08:52→22:11)
[2022-08-08] MEDS: Ensure Plus High Protein 120 ML LIQUID PO ×3 (08:52→17:01)
[2022-08-08] MEDS: busPIRone 5 MG Tablet PO (08:53)
[2022-08-08] MEDS: Citalopram 40 MG TABLET PO (08:53)
[2022-08-08] MEDS: Vancomycin IV 500 MG/100 ML BAG 100 MG IV ×2 (09:49→10:56)
--- NOTE | 2022-08-08 10:21 | PCM.RX.CS ---
Consult Pharmacy has been consulted to manage selected antiobiotic: Vancomycin Type of Consult: Follow-up Suspected Infection: Pneumonia Prior Doses of Antibiotics Received/Current Regimen: currently on vanc 500mg IV q12h Labs: Sodium 138 mmol/L (136-145) 08/08/22 07:30 Potassium 3.9 mmol/L (3.5-5.1) 08/08/22 07:30 Chloride 115 mmol/L (98-107) H 08/08/22 07:30 Carbon Dioxide 19.0 mmol/L (21.0-32.0) L 08/08/22 07:30 Anion Gap 4 (5-15) L 08/08/22 07:30 BUN 13 mg/dL (7-18) 08/08/22 07:30 Creatinine 0.56 mg/dL (0.55-1.02) 08/08/22 07:30 Est GFR (MDRD) Af Amer 143 mL/min (>60) 08/08/22 07:30 Est GFR (MDRD) Non-Af 118 mL/min (>60) 08/08/22 07:30 BUN/Creatinine Ratio 23.2 RATIO (10-20) H 08/08/22 07:30 Glucose 182 mg/dL (74-106) H 08/08/22 07:30 Vancomycin Trough 9.5 ug/mL (5.0-15.0) 08/08/22 07:30 Weight used for dosin.9 kg Estimated Creatinine Clearance: 95.7ml/min Goal Trough: 15-20 mcg/mL Pharmacy Plan for Drug Dosing: The vanc trough drawn at 07:30 today (approx 11.5 hrs after the previous dose) was 9.5. Below goal so will increase dose to 1000mg q12h. Since this morning's dose of 500mg is already infusing, will give another 500mg x1 after that to make 1000mg total dose this morning. Repeat another trough before the 4th total dose of 1000mg tomorrow night. Pharmacy Service will continue to monitor and adjust dosing as required. Follow-Up Labs: Trough Vancomycin Labs to be done on [date and time ordered]: 08/09/22 21:30
[2022-08-08] MEDS: 0.9% Saline Lock 10 ML Syringe IV (13:50)
--- NOTE | 2022-08-08 15:31 | CASEMGMT ---
RN notified CHRISTIAN that patient was asking about power of deputy commonwealth's attorney. CHRISTIAN met with patient and her sister Reyna. Introduced self and role at [facility]. SW asked patient about her questions regarding power of deputy commonwealth's attorney. Patient said she already took care of that. After some further discussion patient did financial power of deputy commonwealth's attorney not healthcare power of deputy commonwealth's attorney. Patient said she has kids, but she does not want them making any decisions for her. SW told patient that she should do the healthcare power of deputy commonwealth's attorney papers. As of right now medical decision making would go to her children if she were unable to make her own decisions. CHRISTIAN started to complete paperwork with patient. However, she wants to list her sister Haydee as an alternate, but she wants to talk with her first. Marielle MCINTOSH
--- NOTE | 2022-08-08 15:53 | CASEMGMT ---
SW was able to obtain the individuals patient wants for healthcare POA and alternates. Reyna Garber-sister is who patient named as healthcare power of news copy editor. Second would be patient's sister Haydee Moise, and third would be patient's cousin Sammie Mckeno. Patient had a lot of visitors come in so SW will finish the documents tomorrow. Marielle Velazco UNDERWRITER SOLICITATION DIRECTOR DAYNA
[2022-08-08] MEDS: Vancomycin IV 1,000 MG/200 ML BAG 200 MG IV (22:10)
[2022-08-08] MEDS: Atorvastatin Calcium 40 MG Tablet PO (22:11)
[2022-08-08] MEDS: Acetaminophen 325 MG Tablet 650 MG PO (22:27)
[2022-08-08] MEDS: Senna Tablet 1 TABLET PO (22:27)
[2022-08-09] VITALS (15 sets, daily range): BP systolic 114–130; BP diastolic 68–79; PULSE 66–97; RESP 18–20; TEMP 36.4–36.8; O2SAT 93–98
[2022-08-09] MEDS: Ipratropium/Albuterol Sulfate 3 ML AMPUL.NEB INHALATION ×5 (02:13→19:34)
[2022-08-09] MEDS: Enoxaparin 80 MG/0.8 ML Syringe 70 MG SC ×2 (06:22→16:27)
[2022-08-09] MEDS: 0.9% Saline Lock 10 ML Syringe IV ×3 (06:22→21:42)
--- NOTE | 2022-08-09 08:44 | PN.HOSP_ITS ---
Reason for Visit Reason for Visit: Diagnoses Malignant neoplasm of unspecified part of unspecified bronchus or lung ( 3) Other pulmonary embolism without acute cor pulmonale (08/06/22) Hypotension, unspecified (08/06/22) Pneumonia, unspecified organism (08/06/22) Chronic obstructive pulmonary disease with (acute) exacerbation (08/06/22) Acute and chronic respiratory failure, unspecified whether with hypoxia or hype rcapnia (08/06/22) Acute kidney failure, unspecified (08/06/22) Subjective Subjective No events overnight. Oxygen able to be weaned down. States she is using IS and acapella valve. Objective Data Objective Data Vital Signs: Vital Signs Temp Pulse Resp BP Pulse Ox O2 Del Method O2 Flow Rate 36.6 C 86 18 125/71 H 98 High Flow 9 08/09/22 07:47 08/09/22 07:47 08/09/22 07:47 08/09/22 07:47 08/09/22 07:47 08/09/22 07:47 08/09/22 07:47 Oxygen Flow Rate (L/min) 9 Oxygen Delivery Method High Flow Weight: 69.9 kg Body Mass Index (BMI) 26.4 Intake & Output: Intake and Output for Last 24 Hours 08/07/22 08/08/22 08/09/22 23:59 23:59 23:59 Intake Total 5927.08 / 5927.08 2750 / 2750 50 / 50 Output Total 1050 / 1050 Balance 4877.08 / 4877.08 2750 / 2750 50 / 50 Lab / Micro Data Result Diagrams: 08/08/22 07:30 08/08/22 07:30 Micro: Microbiology 08/06/22 16:10 Blood Culture (Wb) - Anticubital Right Blood Culture - Preliminary No growth in 48 hours. 08/06/22 15:50 Blood Culture (Wb) - Left Hand Blood Culture - Preliminary No growth in 48 hours. Physical Exam Const alert and no apparent distress HEENT head/scalp atraumatic Resp normal respiratory effort and no retractions Resp Narrative: diminished BS bilaterally. 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 Advised on need to use and proper usage. (2) Pulmonary embolism: PLAN: Likely malignancy-induced DC apixaban and start enoxaparin Troponin 5. Echo EF 55-60% (3) Acute kidney injury: PLAN: resovled with IVF (4) Hypotension: PLAN: appears chronic based on prior vitals lisinopril currently held metoprolol succinate currently held. continue IVF monitor (5) Metastatic primary lung cancer: PLAN: Sq cell carcinoma metastatic left chest wall, mediastinal LN, right adreanl gland and left superior pubic rami. undergoing palliative XRT CT left upper lobe mass [id number]. appears necrotic with small left pleural effusion DW family member on phone. Explained she currently is not a candidate for XRT (she missed last Sunday and today) until she is more stable Reviewed Oncology note from 07/31: plan to imitate systemic therapy after palliative chemotherapy. DW family and patient about poor overall prognosis given metastatic cancer. Reiterated that she is undergoing palliative treatment. (6) COPD exacerbation: PLAN: add BDs and methylpred (7) Acute and chronic respiratory failure: PLAN: 2/2 lung cancer, pneumonia, PE, pleural effusion, COPD increased oxygen requirements. methylpred, BDs PEP improved oxygenation, now down to 9l/m PLAN: Plan Chronic conditions: * HTN/HLD? Can resume her home Lipitor? Given her infection and her borderline blood pressures can hold her home blood pressure medications for now * Anxiety/depression? Understandably she is going through a lot and is struggling with her new cancer diagnosis? We will continue with her home medications? I did recommend outpatient therapy versus support groups for cancer patients hopefully social work and/or case management can assist * Seizure disorder? Stable? Continue with her p.o. Keppra DVT prophylaxis not indicated as she is anticoagulated Charges/Coding Visit Charges Inpatient E&M: 65746 Subs Hosp L2
[2022-08-09] MEDS: Acyclovir 200 MG Capsule 400 MG PO ×2 (09:07→21:42)
[2022-08-09] MEDS: Lidocaine 5% 35GM Tube 1 APPLIC TOPICAL ×2 (09:08→21:42)
[2022-08-09] MEDS: levETIRAcetam 1,000 MG Tablet 1000 MG PO ×2 (09:08→21:42)
[2022-08-09] MEDS: Citalopram 40 MG TABLET PO (09:08)
[2022-08-09] MEDS: Ensure Plus High Protein 120 ML LIQUID PO ×2 (09:09→14:29)
--- NOTE | 2022-08-09 10:19 | CASEMGMT ---
SW finished Healthcare Power of Radar Repairer papers with patient. Copies were made and given to patient along with original. SW also placed a copy in patient's chart. Marielle MCINTOSH
[2022-08-09] MEDS: Vancomycin IV 1,000 MG/200 ML BAG 200 MG IV ×2 (10:34→21:58)
[2022-08-09] MEDS: Acetaminophen 325 MG Tablet 650 MG PO ×2 (12:15→21:42)
[2022-08-09] MEDS: Polyethylene Glycol 3350 17 GM PACKET PO (12:16)
[2022-08-09 17:45] LABS: Bedside Glucose 188 mg/dL (74-106)
[2022-08-09 21:39] LABS: Vancomycin, Trough Level 19.6 ug/mL (5.0-15.0)
[2022-08-09] MEDS: Atorvastatin Calcium 40 MG Tablet PO (21:42)
[2022-08-09] MEDS: Senna Tablet 1 TABLET PO (22:02)
[2022-08-10] VITALS (16 sets, daily range): BP systolic 130–149; BP diastolic 67–80; PULSE 74–91; RESP 18–20; TEMP 36.6–36.9; O2SAT 84–98
--- NOTE | 2022-08-10 04:02 | PCM.RX.CS ---
Consult Pharmacy has been consulted to manage selected antiobiotic: Vancomycin Type of Consult: Follow-up Labs: Sodium 138 mmol/L (136-145) 08/08/22 07:30 Potassium 3.9 mmol/L (3.5-5.1) 08/08/22 07:30 Chloride 115 mmol/L (98-107) H 08/08/22 07:30 Carbon Dioxide 19.0 mmol/L (21.0-32.0) L 08/08/22 07:30 Anion Gap 4 (5-15) L 08/08/22 07:30 BUN 13 mg/dL (7-18) 08/08/22 07:30 Creatinine 0.56 mg/dL (0.55-1.02) 08/08/22 07:30 Est GFR (MDRD) Af Amer 143 mL/min (>60) 08/08/22 07:30 Est GFR (MDRD) Non-Af 118 mL/min (>60) 08/08/22 07:30 BUN/Creatinine Ratio 23.2 RATIO (10-20) H 08/08/22 07:30 Glucose 182 mg/dL (74-106) H 08/08/22 07:30 Vancomycin Trough 19.6 ug/mL (5.0-15.0) H 08/09/22 20:57 Microbiology: Microbiology 08/06/22 16:10 Blood Culture (Wb) - Anticubital Right Blood Culture - Preliminary No growth in 48 hours. 08/06/22 15:50 Blood Culture (Wb) - Left Hand Blood Culture - Preliminary No growth in 48 hours. Goal Trough: 15-20 mcg/mL Pharmacy Plan for Drug Dosing: Pharmacy Service will continue to monitor and adjust dosing as required. TROUGN 19.6 @ 10.5 HRS. NO CHANGES FOLLOW UP TROUGH IN 2 DAYS Follow-Up Labs: Trough Vancomycin Labs to be done on [date and time ordered]: 08/11 @ 1400
[2022-08-10] MEDS: Enoxaparin 80 MG/0.8 ML Syringe 70 MG SC ×2 (05:51→17:25)
[2022-08-10] MEDS: Ipratropium/Albuterol Sulfate 3 ML AMPUL.NEB INHALATION ×4 (07:06→19:59)
--- NOTE | 2022-08-10 08:02 | PN.HOSP_ITS ---
Reason for Visit Reason for Visit: Diagnoses Malignant neoplasm of unspecified part of unspecified bronchus or lung ( 3) Other pulmonary embolism without acute cor pulmonale (08/06/22) Hypotension, unspecified (08/06/22) Pneumonia, unspecified organism (08/06/22) Chronic obstructive pulmonary disease with (acute) exacerbation (08/06/22) Acute and chronic respiratory failure, unspecified whether with hypoxia or hype rcapnia (08/06/22) Acute kidney failure, unspecified (08/06/22) Subjective Subjective Decreased oxygen requirements. Objective Data Objective Data Vital Signs: Vital Signs Temp Pulse Resp BP Pulse Ox O2 Del Method O2 Flow Rate 36.6 C 86 20 H 134/71 H 90 Nasal Cannula 6 08/10/22 03:39 08/10/22 06:55 08/10/22 06:55 08/10/22 03:39 08/10/22 06:55 08/10/22 06:55 08/10/22 06:55 Oxygen Flow Rate (L/min) 6 Oxygen Delivery Method Nasal Cannula Weight: 69.9 kg Body Mass Index (BMI) 26.4 Intake & Output: Intake and Output for Last 24 Hours 08/08/22 08/09/22 08/10/22 23:59 23:59 23:59 Intake Total 2750 / 2750 1030 / 1030 50 / 50 Balance 2750 / 2750 1030 / 1030 50 / 50 Lab / Micro Data Result Diagrams: 08/08/22 07:30 08/08/22 07:30 Labs: Laboratory Results - last 24 hr 08/09/22 16:22: POC Glucose 188 H 08/09/22 20:57: Vancomycin Trough 19.6 H Micro: Microbiology 08/06/22 16:10 Blood Culture (Wb) - Anticubital Right Blood Culture - Preliminary No growth in 48 hours. 08/06/22 15:50 Blood Culture (Wb) - Left Hand Blood Culture - Preliminary No growth in 48 hours. Physical Exam Const alert and no apparent distress HEENT head/scalp atraumatic and moist oral mucous membranes Resp normal respiratory effort Resp Narrative: coarse wheezes bilaterally. 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 Advised on need to use and proper usage. (2) Pulmonary embolism: PLAN: Likely malignancy-induced DC apixaban and start enoxaparin Troponin 5. Echo EF 55-60% (3) Acute kidney injury: PLAN: resovled with IVF (4) Hypotension: PLAN: appears chronic based on prior vitals lisinopril currently held metoprolol succinate currently held. continue IVF monitor (5) Metastatic primary lung cancer: PLAN: Sq cell carcinoma metastatic left chest wall, mediastinal LN, right adreanl gland and left superior pubic rami. undergoing palliative XRT CT left upper lobe mass [id number]. appears necrotic with small left pleural effusion DW family member on phone. Explained she currently is not a candidate for XRT (she missed last Sunday and today) until she is more stable Reviewed Oncology note from 07/31: plan to imitate systemic therapy after palliative chemotherapy. DW family and patient about poor overall prognosis given metastatic cancer. Reiterated that she is undergoing palliative treatment. (6) COPD exacerbation: PLAN: add BDs and methylpred (7) Acute and chronic respiratory failure: PLAN: 2/2 lung cancer, pneumonia, PE, pleural effusion, COPD increased oxygen requirements. methylpred, BDs PEP improved oxygenation, now down to 6l/m, however required greater than 8liters with activity. Will try furosemide challenge. PLAN: Plan Chronic conditions: * HTN/HLD? Can resume her home Lipitor? Given her infection and her borderline blood pressures can hold her home blood pressure medications for now * Anxiety/depression? Understandably she is going through a lot and is stru ggling with her new cancer diagnosis? We will continue with her home medications? I did recommend outpatient therapy versus support groups for cancer patients hopefully social work and/or case management can assist * Seizure disorder? Stable? Continue with her p.o. Keppra DVT prophylaxis not indicated as she is anticoagulated Charges/Coding Visit Charges Inpatient E&M: 23705 Subs Hosp L2
[2022-08-10] MEDS: Ensure Plus High Protein 120 ML LIQUID PO ×2 (08:43→17:25)
[2022-08-10] MEDS: levETIRAcetam 1,000 MG Tablet 1000 MG PO ×2 (08:44→21:11)
[2022-08-10] MEDS: Citalopram 40 MG TABLET PO (08:44)
[2022-08-10] MEDS: Lidocaine 5% 35GM Tube 1 APPLIC TOPICAL ×2 (08:44→21:11)
[2022-08-10] MEDS: Acyclovir 200 MG Capsule 400 MG PO ×2 (08:44→21:11)
[2022-08-10] MEDS: Vancomycin IV 1,000 MG/200 ML BAG 200 MG IV (10:20)
[2022-08-10] MEDS: 0.9% Saline Lock 10 ML Syringe IV ×2 (13:50→14:46)
[2022-08-10] MEDS: Furosemide 40 MG/4 ML Vial IV (14:46)
[2022-08-10] MEDS: Atorvastatin Calcium 40 MG Tablet PO (21:11)
[2022-08-10] MEDS: Acetaminophen 325 MG Tablet 650 MG PO (21:17)
[2022-08-11] VITALS (11 sets, daily range): BP systolic 147–148; BP diastolic 74–86; PULSE 88–98; RESP 18–22; TEMP 36.4–37.1; O2SAT 84–97
[2022-08-11] MEDS: Ipratropium/Albuterol Sulfate 3 ML AMPUL.NEB INHALATION ×4 (03:28→13:23)
[2022-08-11] MEDS: Enoxaparin 80 MG/0.8 ML Syringe 70 MG SC (05:07)
[2022-08-11 05:20] LABS: Absolute Lymphocyte Count 0.55 X10^3/uL (0.83-4.51); Absolute Neutrophil Count 13.7 X10^3/uL (2.0-7.7); Basophil# 0.01 X10^3/uL; Basophil% 0.1 % (0-1); Hematocrit 27.1 % (37-47); Hemoglobin 8.2 g/dL (12.0-15.0); Lymphocyte # 0.55 X10^3/ul (0.83-4.51); Lymphocyte % 3.7 % (19-41); Mean Corp Hgb Conc 30.3 g/dL (32-36); Mean Corpuscular Hgb 27.1 pg (27.0-32.0); Mean Corpuscular Volume 89.4 fL (81-99); Mean Platelet Vol. 11.8 fl (6.2-12.0); Monocyte# 0.47 X10^3/uL; Monocyte% 3.1 % (0-10); NRBC Flagged by Analyzer 0 % (0-5); Neutrophil # 13.71 X10^3/uL (2.7-7.7); Neutrophil % 91.6 % (47-70); POSITIVE DIFFERENTIAL YES; Platelet Count 264 K/mm3 (150-450); RBC Distribution Width CV 15.2 % (11.6-14.6); RBC Distribution Width SD 49.5 fl (35.1-43.9); Red Blood Count 3.03 M/mm3 (4.2-5.4)
[2022-08-11 05:26] LABS: Differential Indicated SCAN CRITERIA MET
[2022-08-11 05:49] LABS: Anion Gap 3 (5-15); BUN 24 mg/dL (7-18); BUN/Creat Ratio 36.1 RATIO (10-20); Calcium,Total 8.3 mg/dL (8.5-10.1); Chloride 110 mmol/L (98-107); Creatinine, Serum 0.66 mg/dL (0.55-1.02); EST Glomerular Filtration Rate 97 mL/min (>60); Est Glom Filt Rate - Afr Amer 117 mL/min (>60); Estimated Creatinine Clearance 81.21 ml/min; Glucose 138 mg/dL (74-106); Potassium 3.5 mmol/L (3.5-5.1); Sodium Level 138 mmol/L (136-145)
[2022-08-11 05:53] LABS: Anisocytosis 1+
--- NOTE | 2022-08-11 07:51 | PCM.PN.HOSP ---
Reason for Visit Reason for Visit: Diagnoses Malignant neoplasm of unspecified part of unspecified bronchus or lung (08/06/22) Other pulmonary embolism without acute cor pulmonale (08/06/22) Hypotension, unspecified (08/06/22) Pneumonia, unspecified organism (08/06/22) Chronic obstructive pulmonary disease with (acute) exacerbation (08/06/22) Acute and chronic respiratory failure, unspecified whether with hypoxia or hypercapnia (08/06/22) Acute kidney failure, unspecified (08/06/22) Subjective Subjective Breathing well. Able to get up with therapy and ambulate without difficult and maintained her sats at 93% on 6l. Objective Data Objective Data Vital Signs: Vital Signs Temp Pulse Resp BP Pulse Ox O2 Del Method O2 Flow Rate 37.1 C 98 20 H 147/86 H 94 Nasal Cannula 6 08/11/22 03:06 08/11/22 07:03 08/11/22 07:03 08/11/22 03:06 08/11/22 07:03 08/11/22 07:03 08/11/22 07:03 Oxygen Flow Rate (L/min) [ 8 AMBULATING with Oxygen #3] Oxygen Flow Rate (L/min) [ 4 AMBULATING with Oxygen #2] Oxygen Flow Rate (L/min) [ 2 AMBULATING with Oxygen #1] Oxygen Flow Rate (L/min) [At 6 REST with Oxygen] Oxygen Flow Rate (L/min) [At 0 REST on Room Air] Oxygen Flow Rate (L/min) 6 Oxygen Delivery Method Nasal Cannula Weight: 69.9 kg Body Mass Index (BMI) 26.4 Intake & Output: Intake and Output for Last 24 Hours 08/09/22 08/10/22 08/11/22 23:59 23:59 23:59 Intake Total 1030 / 1030 950 / 950 50 / 50 Balance 1030 / 1030 950 / 950 50 / 50 Lab / Micro Data Result Diagrams: 08/11/22 05:05 08/11/22 05:05 Labs: Laboratory Results - last 24 hr 08/11/22 05:05: WBC 15.0 H, RBC 3.03 L, Hgb 8.2 L, Hct 27.1 L, MCV 89.4, MCH 27.1, MCHC 30.3 L, RDW Std Deviation 49.5 H, RDW Coeff of Diana 15.2 H, Plt Count 264, MPV 11.8, Immature Gran % (Auto) 1.500 H, Neut % (Auto) 91.6 H, Lymph % (Auto) 3.7 L, [place] % (Auto) 3.1, Eos % (Auto) 0.0, Baso % (Auto) 0.1, Absolute Neuts (auto) 13.7 H, Absolute Lymphs (auto) 0.55 L, Nucleated RBC % 0, Anisocytosis 1+ 08/11/22 05:05: Sodium 138, Potassium 3.5, Chloride 110 H, Carbon Dioxide 25.0, Anion Gap 3 L, BUN 24 H, Creatinine 0.66, Estim Creat Clear Calc 81.21, Est GFR (MDRD) Af Amer 117, Est GFR (MDRD) Non-Af 97, BUN/Creatinine Ratio 36.1 H, Glucose 138 H, Calcium 8.3 L Micro: Microbiology 08/06/22 16:10 Blood Culture (Wb) - Anticubital Right Blood Culture - Preliminary No growth in 48 hours. 08/06/22 15:50 Blood Culture (Wb) - Left Hand Blood Culture - Preliminary No growth in 48 hours. Physical Exam Const alert and no apparent distress Constitutional Narrative: no respiratory distress. no conversational dyspnea. 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 Advised on need to use and proper usage. (2) Pulmonary embolism: PLAN: Likely malignancy-induced DC apixaban and start enoxaparin Troponin 5. Echo EF 55-60% (3) Acute kidney injury: PLAN: resovled with IVF (4) Hypotension: PLAN: appears chronic based on prior vitals lisinopril currently held metoprolol succinate currently held. continue IVF monitor (5) Metastatic primary lung cancer: PLAN: Sq cell carcinoma metastatic left chest wall, mediastinal LN, right adreanl gland and left superior pubic rami. undergoing palliative XRT CT left upper lobe mass [id number]. appears necrotic with small left pleural effusion DW family member on phone. Explained she currently is not a candidate for XRT (she missed last Sunday and today) until she is more stable Reviewed Oncology note from 07/31: plan to imitate systemic therapy after palliative chemotherapy. DW family and patient about poor overall prognosis given metastatic cancer. Reiterated that she is undergoing palliative treatment. Follow up with Drs. Sutherland and Brenda. (6) COPD exacerbation: PLAN: add BDs and methylpred change to pred taper (7) Acute and chronic respiratory failure: PLAN: 2/2 lung cancer, pneumonia, PE, pleural effusion, COPD increased oxygen requirements. methylpred, BDs PEP improved oxygenation, now down to 6l/m, however required greater than 8liters with activity. Will try furosemide challenge. PLAN: Plan Chronic conditions: HTN/HLD? Can resume her home Lipitor? Given her infection and her borderline blood pressures can hold her home blood pressure medications for now Anxiety/depression? Understandably she is going through a lot and is struggling with her new cancer diagnosis? We will continue with her home medications? I did recommend outpatient therapy versus support groups for cancer patients hopefully social work and/or case management can assist Seizure disorder? Stable? Continue with her p.o. Keppra DVT prophylaxis not indicated as she is anticoagulated
[2022-08-11] MEDS: Citalopram 40 MG TABLET PO (08:36)
[2022-08-11] MEDS: levETIRAcetam 1,000 MG Tablet 1000 MG PO (08:36)
[2022-08-11] MEDS: Acyclovir 200 MG Capsule 400 MG PO (08:36)
[2022-08-11] MEDS: Ensure Plus High Protein 120 ML LIQUID PO (08:37)
[2022-08-11] MEDS: Lidocaine 5% 35GM Tube 1 APPLIC TOPICAL (08:37)
[2022-08-11] MEDS: fentaNYL 25 MCG Patch TD (08:46)
--- NOTE | 2022-08-11 12:14 | CASEMGMT ---
BRIDGETT LIMA updated that patient will need 6lpm continuous at discharge. Patient is established with [facility]. BRIDGETT LIMA received updated script. BRIDGETT LIMA in to patient's room to clarify where she will be going at discharge. Per patient, she is going to her boyfriend José's house. BRIDGETT LIMA confirmed address for boyfriend on facesheet. BRIDGETT LIMA called and updated Miguel A Daugherty Liaison, regarding discharge disposition. Referral sent to [facility] via [facility]. Patient declined further needs at discharge.
--- NOTE | 2022-08-11 13:30 | DCINST_ITS ---
Discharge Instructions Diet Discharge Diet: No restrictions Dressing / Incision Call your doctor if you observe: Shortness of breath Follow Up Care Test Results: Test results from this visit will be discussed in further detail at your follow- up appointment, if applicable. Discharge Plan Admission Admit Date/Time: 08/06/22 18:00 Primary Reason for Your Visit: pulmonary embolism. pneumonia Attending Provider: Brian Ren Primary Care Provider: Joseph Ortiz Consulting Providers: Mike Kumar Discharge Orders/Prescriptions Prescriptions: New Ensure Plus High Protein 0.08 gram-1.5 kcal/mL Liquid 120 ml PO 4X/DAY 10 Days Qty: 40 0RF enoxaparin 80 mg/0.8 mL syringe 70 mg subcut Q12H Qty: 8 0RF prednisone 10 mg tablet 10 mg PO DAILY Qty: 30 0RF Rx Instructions: 4 tabs daily for 3 days, then 3 tabs daily for 3 days, then 2 tabs daily for 3 days, then 1 tab daily for 3 days Continued levetiracetam 1,000 mg tablet 1,000 mg PO BID metoprolol succinate 100 mg tablet extended release 24 hr 100 mg PO DAILY dicyclomine 10 mg capsule 10 mg PO 4X/DAY PRN (Reason: Pain Score 1-10/10) citalopram 40 mg tablet 40 mg PO DAILY fentanyl 25 mcg/hr patch 72 hour 1 patch transdermal Q72H aspirin 81 MG tablet 81 mg PO DAILY@0800 Label Comments: HEART HEALTH nitroglycerin 0.4 MG tablet 0.4 mg sublingual Q5M PRN (Reason: Chest Pain) Label Comments: CHEST PAIN valacyclovir 1 gram tablet 1,000 mg PO DAILY Label Comments: TAKE 1 TABLET BY MOUTH ONCE DAILY FOR 10 DAYS oxycodone-acetaminophen [Percocet] 5-325 mg tablet 1 tab PO Q8H PRN (Reason: pain) 3 Days Qty: 12 0RF buspirone 5 mg tablet 5 mg PO BID Label Comments: Take one (1) tablet by mouth twice a day for anxiety/panic Palliative patient sennosides [senna] 8.6 mg Tablet 8.6 mg PO DAILY PRN (Reason: Constipation) bisacodyl [Dulcolax (bisacodyl)] 10 mg Suppository 10 mg IN DAILY PRN (Reason: Constipation) polyethylene glycol 3350 17 gram/dose powder 17 g PO DAILY PRN (Reason: Constipation) Label Comments: TAKE 17 GM DOSE (ONE SCOOP) MIXED IN 4-8 OZ OF LIQUID ONCE DAILY FOR CONSTIPATION. HOLD FOR DIARRHEA ondansetron 4 mg tablet,disintegrating 4 mg PO Q8H PRN (Reason: Nausea) Label Comments: Place one (1) tablet in mouth and allow to dissolve every 8 hours, as needed nausea/vomiting Palliative patient fluticasone propionate 50 mcg/actuation [place],Suspension 1 spray INTRANASAL DAILY cholecalciferol (vitamin D3) [Vitamin D3] 25 mcg (1,000 unit) Tablet 25 mcg PO DAILY lidocaine 5 % ointment 1 applic topical BID Label Comments: Apply to affected area twice daily as needed (genitalia pain). Relistor 150 mg tablet 450 mg PO DAILY Label Comments: TAKE 3 TABLETS BY MOUTH EVERY MORNING Trelegy Ellipta 200-62.5-25 mcg blister with device 1 inh inhalation DAILY atorvastatin 40 mg tablet 40 mg PO QHS Qty: 90 3RF Discontinued amlodipine 5 mg tablet 5 mg PO DAILY isosorbide mononitrate 30 mg tablet extended release 24 hr 30 mg PO DAILY Label Comments: Take 1 tablet by mouth once daily. lisinopril 20 mg tablet 20 mg PO BID Qty: 180 3RF Referrals / Follow Up: *[facility] [Provider Group] - 08/14/22 1:30 pm Ronald Sutherland DO [Med Staff - Active Staff] - 08/14/22 1:00 pm (radiation oncology) Joseph Ortiz MD [Primary Care Provider] - Within 2 Weeks Disposition Disposition (needs filled in before D/C Order can be placed): Home, Self Care
--- NOTE | 2022-08-11 13:40 | DS.PCM_ITS ---
Providers Date of Admission: 08/06/22 Primary Care Physician: Dr. 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 Advised on need to use and proper usage. Pt completed 6 days of abx. Since cultures have been negative, will discontinue antibiotics. (2) Pulmonary embolism: Status: Acute Code(s): I26.99 - Other pulmonary embolism without acute cor pulmonale Plan: Likely malignancy-induced DC apixaban and start enoxaparin Troponin 5. Echo EF 55-60% (3) Acute kidney injury: Status: Acute Code(s): N17.9 - Acute kidney failure, unspecified Plan: resovled with IVF (4) Hypotension: Status: Acute Code(s): I95.9 - Hypotension, unspecified Plan: appears chronic based on prior vitals lisinopril currently held metoprolol succinate currently held. continue IVF monitor (5) Metastatic primary lung cancer: Status: Acute Code(s): C34.90 - Malignant neoplasm of unspecified part of unspecified bronchus or lung Plan: Sq cell carcinoma metastatic left chest wall, mediastinal LN, right adreanl gland and left superior pubic rami. undergoing palliative XRT CT left upper lobe mass [id number]. appears necrotic with small left pleural effusion DW family member on phone. Explained she currently is not a candidate for XRT (she missed last Sunday and today) until she is more stable Reviewed Oncology note from 07/31: plan to imitate systemic therapy after palliative chemotherapy. DW family and patient about poor overall prognosis given metastatic cancer. Reiterated that she is undergoing palliative treatment. Follow up with Drs. Sutherland and Brenda. (6) COPD exacerbation: Status: Chronic Code(s): J44.1 - Chronic obstructive pulmonary disease with (acute) exacerbation Plan: add BDs and methylpred change to pred taper (7) Acute and chronic respiratory failure: Status: Chronic Code(s): J96.20 - Acute and chronic respiratory failure, unspecified whether with hypoxia or hypercapnia Plan: 2/2 lung cancer, pneumonia, PE, pleural effusion, COPD increased oxygen requirements. methylpred, BDs PEP improved oxygenation, now down to 6l/m, however required greater than 8liters with activity. Will try furosemide challenge. Requires 6l/m on oxygen continuous upon discharge. Plan Chronic conditions: * HTN/HLD? Can resume her home Lipitor? Given her infection and her borderline blood pressures can hold her home blood pressure medications for now * Anxiety/depression? Understandably she is going through a lot and is struggling with her new cancer diagnosis? We will continue with her home medications? I did recommend outpatient therapy versus support groups for cancer patients hopefully social work and/or case management can assist * Seizure disorder? Stable? Continue with her p.o. Keppra DVT prophylaxis not indicated as she is anticoagulated Medications at Discharge Home Medications aspirin 81 mg tablet,delayed release 81 mg PO DAILY@0800 06/07/13 nitroglycerin 0.4 mg sublingual tablet 0.4 mg sublingual Q5M PRN Chest Pain 06/07/13 citalopram 40 mg tablet 40 mg PO DAILY 12/12/18 dicyclomine 10 mg capsule 10 mg PO 4X/DAY PRN Pain Score 1-01/3012/12/18 levetiracetam 1,000 mg tablet 1,000 mg PO BID 12/12/18 metoprolol succinate 100 mg tablet,extended release 24 hr 100 mg PO DAILY 12/12/18 atorvastatin 40 mg tablet 40 mg PO QHS #90 tabs 01/20/19 valacyclovir 1 gram tablet 1,000 mg PO DAILY 06/17/22 oxycodone-acetaminophen 5 mg-325 mg tablet (Percocet) 1 tab PO Q8H PRN pain 3 days #12 tabs 07/04/22 fentanyl 25 mcg/hr transdermal patch 1 patch transdermal Q72H 07/20/22 bisacodyl 10 mg rectal suppository (Dulcolax (bisacodyl)) 10 mg MA DAILY PRN Constipation 08/06/22 buspirone 5 mg tablet 5 mg PO BID ANXIETY 08/06/22 cholecalciferol (vitamin D3) 25 mcg (1,000 unit) tablet (Vitamin D3) 25 mcg PO DAILY SUPPLEMENT 08/06/22 fluticasone fur. 200 mcg-umeclid 62.5 mcg-vilant 25 mcg inhalat.powder (Trelegy Ellipta) 1 inh inhalation DAILY 08/06/22 fluticasone propionate 50 mcg/actuation nasal spray,suspension 1 spray intranasal DAILY ALLERGIES 08/06/22 lidocaine 5 % topical ointment 1 applic topical BID GENITAL PAIN 08/06/22 methylnaltrexone 150 mg tablet (Relistor) 450 mg PO DAILY CONSTIPATION, OPIOID- INDUCED 08/06/22 ondansetron 4 mg disintegrating tablet 4 mg PO Q8H PRN Nausea 08/06/22 polyethylene glycol 3350 17 gram/dose oral powder 17 g PO DAILY PRN Constipation 08/06/22 sennosides 8.6 mg tablet (senna) 8.6 mg PO DAILY PRN Constipation 08/06/22 enoxaparin 80 mg/0.8 mL subcutaneous syringe 70 mg (0.7 mL) subcut Q12H #8 mL 08/11/22 food supplemt, lactose-reduced 0.08 gram-1.5 kcal/mL oral liquid (Ensure Plus High Protein) 120 ml PO 4X/DAY 10 days #40 BOTTLES 08/11/22 prednisone 10 mg tablet 10 mg PO DAILY #30 tabs 08/11/22 Hospital Course Operations None Procedures None Summary of Care Provided Minutes Spent on Discharge: 32 Weight / BMI Weight Weight: 69.9 kg Body Mass Index (BMI) 26.4 ABG / Lab / Microbiology Data Result Diagrams: 08/11/22 05:05 08/11/22 05:05 Laboratory: Laboratory Results - last 24 hr 08/11/22 05:05: WBC 15.0 H, RBC 3.03 L, Hgb 8.2 L, Hct 27.1 L, MCV 89.4, MCH 27.1, MCHC 30.3 L, RDW Std Deviation 49.5 H, RDW Coeff of Diana 15.2 H, Plt Count 264, MPV 11.8, Immature Gran % (Auto) 1.500 H, Neut % (Auto) 91.6 H, Lymph % (Auto) 3.7 L, [place] % (Auto) 3.1, Eos % (Auto) 0.0, Baso % (Auto) 0.1, Absolute Neuts (auto) 13.7 H, Absolute Lymphs (auto) 0.55 L, Nucleated RBC % 0, Anisocytosis 1+ 08/11/22 05:05: Sodium 138, Potassium 3.5, Chloride 110 H, Carbon Dioxide 25.0, Anion Gap 3 L, BUN 24 H, Creatinine 0.66, Estim Creat Clear Calc 81.21, Est GFR (MDRD) Af Amer 117, Est GFR (MDRD) Non-Af 97, BUN/Creatinine Ratio 36.1 H, Glucose 138 H, Calcium 8.3 L Microbiology: Microbiology 08/06/22 16:10 Blood Culture (Wb) - Anticubital Right Blood Culture - Preliminary No growth in 48 hours. 08/06/22 15:50 Blood Culture (Wb) - Left Hand Blood Culture - Preliminary No growth in 48 hours. D/C Instructions Discharge Diet: No restrictions Call your doctor if you observe: Shortness of breath Meaningful Use Info Meaningful Use Diagnoses (Choose all that apply): None applicable Discharge Plan Admission Admit Date/Time: 08/06/22 18:00 Primary Reason for Your Visit: pulmonary embolism. pneumonia Attending Provider: Brian Ren Primary Care Provider: Joseph Ortiz Consulting Providers: Mike Kumar Discharge Orders/Prescriptions Prescriptions: New Ensure Plus High Protein 0.08 gram-1.5 kcal/mL Liquid 120 ml PO 4X/DAY 10 Days Qty: 40 0RF enoxaparin 80 mg/0.8 mL syringe 70 mg subcut Q12H Qty: 8 0RF prednisone 10 mg tablet 10 mg PO DAILY Qty: 30 0RF Rx Instructions: 4 tabs daily for 3 days, then 3 tabs daily for 3 days, then 2 tabs daily for 3 days, then 1 tab daily for 3 days Continued levetiracetam 1,000 mg tablet 1,000 mg PO BID metoprolol succinate 100 mg tablet extended release 24 hr 100 mg PO DAILY dicyclomine 10 mg capsule 10 mg PO 4X/DAY PRN (Reason: Pain Score 1-10/10) citalopram 40 mg tablet 40 mg PO DAILY fentanyl 25 mcg/hr patch 72 hour 1 patch transdermal Q72H aspirin 81 MG tablet 81 mg PO DAILY@0800 Label Comments: HEART HEALTH nitroglycerin 0.4 MG tablet 0.4 mg sublingual Q5M PRN (Reason: Chest Pain) Label Comments: CHEST PAIN valacyclovir 1 gram tablet 1,000 mg PO DAILY Label Comments: TAKE 1 TABLET BY MOUTH ONCE DAILY FOR 10 DAYS oxycodone-acetaminophen [Percocet] 5-325 mg tablet 1 tab PO Q8H PRN (Reason: pain) 3 Days Qty: 12 0RF buspirone 5 mg tablet 5 mg PO BID Label Comments: Take one (1) tablet by mouth twice a day for anxiety/panic Palliative patient sennosides [senna] 8.6 mg Tablet 8.6 mg PO DAILY PRN (Reason: Constipation) bisacodyl [Dulcolax (bisacodyl)] 10 mg Suppository 10 mg MA DAILY PRN (Reason: Constipation) polyethylene glycol 3350 17 gram/dose powder 17 g PO DAILY PRN (Reason: Constipation) Label Comments: TAKE 17 GM DOSE (ONE SCOOP) MIXED IN 4-8 OZ OF LIQUID ONCE DAILY FOR CONSTIPATION. HOLD FOR DIARRHEA ondansetron 4 mg tablet,disintegrating 4 mg PO Q8H PRN (Reason: Nausea) Label Comments: Place one (1) tablet in mouth and allow to dissolve every 8 hours, as needed nausea/vomiting Palliative patient fluticasone propionate 50 mcg/actuation [place],Suspension 1 spray INTRANASAL DAILY cholecalciferol (vitamin D3) [Vitamin D3] 25 mcg (1,000 unit) Tablet 25 mcg PO DAILY lidocaine 5 % ointment 1 applic topical BID Label Comments: Apply to affected area twice daily as needed (genitalia pain). Relistor 150 mg tablet 450 mg PO DAILY Label Comments: TAKE 3 TABLETS BY MOUTH EVERY MORNING Trelegy Ellipta 200-62.5-25 mcg blister with device 1 inh inhalation DAILY atorvastatin 40 mg tablet 40 mg PO QHS Qty: 90 3RF Discontinued amlodipine 5 mg tablet 5 mg PO DAILY isosorbide mononitrate 30 mg tablet extended release 24 hr 30 mg PO DAILY Label Comments: Take 1 tablet by mouth once daily. lisinopril 20 mg tablet 20 mg PO BID Qty: 180 3RF Referrals / Follow Up: *[facility] [Provider Group] - 08/14/22 1:30 pm Ronald Sutherland DO [Med Staff - Active Staff] - 08/14/22 1:00 pm (radiation oncology) Joseph Ortiz MD [Primary Care Provider] - Within 2 Weeks Disposition Disposition (needs filled in before D/C Order can be placed): Home, Self Care Charges/Coding Visit Charges Inpatient E&M: 17554 Disch Hosp >30min
--- NOTE | 2022-08-11 14:29 | CASEMGMT ---
Addendum entered by Mishel Martin 08/11/22 16:06: Pt discharging home now. Call placed to Reid @ [facility] [place] [place] and he was made aware. He states will have their party bus driver head to the office to pick pt's equipment up and head to pt's BF José's home now. BRIDGETT LIMA verified Reid has correct contact # for pt, José's #, and José's address. Addendum entered by Mishel Martin 08/11/22 14:37: Pt and José both deny having other discharge planning needs or concerns. BRIDGETT LIMA to contact [facility] [place] [place] when pt is ready for discharge. Original Note: BRIDGETT LIMA NOTE: Discharge order in. Per Reid, @ [facility] [place] [place], they do not have any 10 L concentrators available and so they will need pt's 5 L concentrator from her home to splice together w/another 5 L concentrator. BRIDGETT LIMA took portable O2 tank to pt's room for her to go home on. Pt and BF, José, in room and they were made aware. BRIDGETT LIMA coordinated the following w/pt, BF José, and pt's dtr, Giovana, the following: Giovana is just arriving @ pt's home at this time. [employer] is leaving the branch now and heading towards pt's home. [facility] [place] [place] will peanut picker pt's oxygen equipment @ her home (concentrator and portable O2 tanks). [facility] [place] [place] will deliver pt's oxygen equipment to José's home in [place] along w/another 5 L concentrator once pt is discharged. Jessica OLIVEIRA RN, CM
== END 2022-08-11 16:10 | disposition home or self-care (01) | DRG 193 ==
LOC: ED 14:19 → PCU 18:22
PROVIDERS: Hospitalist; Physician Assistant; Admitting Provider Family Medicine; Emergency Provider Emergency Medicine; PCP Internal Medicine
DX: J13 Pneumonia due to Streptococcus pneumoniae (principal); I26.99 Other pulmonary embolism without acute cor pulmonale; J96.21 Acute and chronic respiratory failure with hypoxia; I26.93 Single subsegmental thrombotic pulmonary embolism without acute cor pulmonale; C78.2 Secondary malignant neoplasm of pleura; C77.1 Secondary and unspecified malignant neoplasm of intrathoracic lymph nodes; C34.90 Malignant neoplasm of unspecified part of unspecified bronchus or lung; C79.51 Secondary malignant neoplasm of bone; C79.89 Secondary malignant neoplasm of other specified sites; J44.0 Chronic obstructive pulmonary disease with (acute) lower respiratory infection; N17.9 Acute kidney failure, unspecified; J44.1 Chronic obstructive pulmonary disease with (acute) exacerbation; C79.71 Secondary malignant neoplasm of right adrenal gland; E86.0 Dehydration; G40.909 Epilepsy, unspecified, not intractable, without status epilepticus; I95.9 Hypotension, unspecified; I10 Essential (primary) hypertension; F41.9 Anxiety disorder, unspecified; I25.10 Atherosclerotic heart disease of native coronary artery without angina pectoris; E78.5 Hyperlipidemia, unspecified; F17.210 Nicotine dependence, cigarettes, uncomplicated; B00.1 Herpesviral vesicular dermatitis; G89.3 Neoplasm related pain (acute) (chronic); R10.2 Pelvic and perineal pain; F32.A Depression, unspecified; Z79.82 Long term (current) use of aspirin; Z79.51 Long term (current) use of inhaled steroids; Z79.899 Other long term (current) drug therapy; Z95.1 Presence of aortocoronary bypass graft
CPT/HCPCS: 36415; 36600; 71046; 71275; 77280; 77334; 77336; 77387; 77412; 80048; 80202; 81001; 82803; 82962; 83605; 84484; 85025; 87040; 93306; 94640; 94668; 94762; 97110; 97112; 97162; 97166; 97530; 97535; 99285; J7030; J7040; Q9967; A4216; J1940; J2405

== ENCOUNTER 2022-09-07 21:24 | Emergency (ER) | payer MEDICARE, MEDICAID, SELFPAY ==
[2022-09-07 21:25] VITALS: BP 100/63; PULSE 104; RESP 20; TEMP 37.5; O2SAT 96; BMI 25.9
[2022-09-07 21:35] VITALS: BP 100/63; BP 115/74; PULSE 101; PULSE 104; RESP 16; RESP 20; TEMP 37.5; O2SAT 88; O2SAT 96
--- NOTE | 2022-09-07 22:18 | EKG12_ITS ---
Test Reason : Blood Pressure : / mmHG Vent. Rate : 093 BPM Atrial Rate : 093 BPM P-R Int : 162 ms QRS Dur : 082 ms QT Int : 378 ms P-R-T Axes : 056 064 087 degrees QTc Int : 469 ms Sinus rhythm with Premature atrial complexes Nonspecific ST and T wave abnormality Prolonged QT Abnormal ECG Confirmed by FABRIZIO NEWSOME, KAREL ([id number]), food editor TORSTEN JOHN ([id number]) on 09/08/2022 8:55:29 AM Referred By: Confirmed By:KAREL DINH MD
--- NOTE | 2022-09-07 22:30 | RAD_ITS ---
INDICATION: Cough, history of cancer and radiation EXAMINATION/TECHNIQUE: X-RAY - XR Chest 2 Views COMPARISON: Chest x-ray and chest CT from 08/06/2022 FINDINGS: LINES/DEVICES: None. LUNGS: Left upper lobe pleural-based mass appears slightly decreased size in the interval. No pulmonary edema. No sizable pleural effusion. No pneumothorax detected. MEDIASTINUM AND CARDIOVASCULAR STRUCTURES: Heart size within normal limits. Atherosclerotic calcifications along aorta. Previous sternotomy and CABG. BONES AND SOFT TISSUES: Persistent rib destruction abutting left upper lobe pleural-based mass. RAD/Chest PA and Lateral IMPRESSION: Known left upper lobe malignancy appears slightly decreased size in the interval, with secondary adjacent osseous destruction. Electronically Signed: Ronaldo Orlando MD at 22:46 EDT ,
[2022-09-07 22:34] LABS: Absolute Lymphocyte Count 0.88 X10^3/uL (0.83-4.51); Absolute Neutrophil Count 6.4 X10^3/uL (2.0-7.7); Basophil# 0.02 X10^3/uL; Basophil% 0.2 % (0-1); Eosinophil# 0.28 X10^3/uL; Eosinophils% 3.4 % (0-5); Hematocrit 26.8 % (37-47); Hemoglobin 8.2 g/dL (12.0-15.0); Lymphocyte # 0.88 X10^3/ul (0.83-4.51); Lymphocyte % 10.6 % (19-41); Mean Corp Hgb Conc 30.6 g/dL (32-36); Mean Corpuscular Hgb 26.5 pg (27.0-32.0); Mean Corpuscular Volume 86.5 fL (81-99); Monocyte% 8.4 % (0-10); NRBC Flagged by Analyzer 0 % (0-5); Neutrophil % 76.8 % (47-70); Platelet Count 153 K/mm3 (150-450); RBC Distribution Width CV 15.7 % (11.6-14.6); RBC Distribution Width SD 49.8 fl (35.1-43.9); White Blood Count 8.3 K/mm3 (4.4-11.0)
[2022-09-07 22:35] VITALS: BP 102/67; PULSE 93; RESP 17; TEMP 37.6; O2SAT 97
--- NOTE | 2022-09-07 22:46 | EX.ED.DYSGE1 ---
HPI History of Present Illness Chief Complaint: General Illness Detail of Chief Complaint: Cough Informant: patient Onset/Context/Timing Onset: Today Context: Sudden Onset Timing: Intermittent Location: Chest Worsened by: Coughing Relieved by: Nothing Narrative Narrative: Patient presents with cough and some shortness of breath that began today. Patient states it began rather suddenly. Patient states she is coughing up some clear sputum. Patient admits to some pain that is diffuse across her chest. Patient states it is only there when she coughs. Patient admits to some subjective chills. Patient denies any nausea or vomiting. Patient does admit to a headache. Patient states she has a history of metastatic lung cancer. Patient is concerned that this could be from a pneumonia. PFSH PFSH Medical History Atherosclerosis of coronary artery of [place] heart without angina pectoris Chronic back pain Collagenous colitis DDD (degenerative disc disease), lumbar Depression with anxiety Encounter for education Essential hypertension Hyperlipidemia Metastasis to adrenal gland Metastatic primary lung cancer Regional lymph node metastasis present Seizures Syncope and collapse Tobacco use Home Medications aspirin 81 mg tablet,delayed release 81 mg PO DAILY@0800 06/07/13 [History Last Taken 08/06/22] nitroglycerin 0.4 mg sublingual tablet 0.4 mg sublingual Q5M PRN Chest Pain 06/07/13 [History Last Taken 07/31/16] citalopram 40 mg tablet 40 mg PO DAILY 12/12/18 [History Last Taken 08/06/22] dicyclomine 10 mg capsule 10 mg PO 4X/DAY PRN Pain Score 1-01/3012/12/18 [History Last Taken 08/01/22] levetiracetam 1,000 mg tablet 1,000 mg PO BID 12/12/18 [History Last Taken 08/06/22] metoprolol succinate 100 mg tablet,extended release 24 hr 100 mg PO DAILY 12/12/18 [History Last Taken 08/06/22] atorvastatin 40 mg tablet 40 mg PO QHS #90 tabs 01/20/19 [Rx Last Taken 08/05/22] valacyclovir 1 gram tablet 1,000 mg PO DAILY 06/17/22 [History Last Taken 08/06/22] oxycodone-acetaminophen 5 mg-325 mg tablet (Percocet) 1 tab PO Q8H PRN pain 3 days #12 tabs 07/04/22 [Rx Last Taken 08/06/22] fentanyl 25 mcg/hr transdermal patch 1 patch transdermal Q72H 07/20/22 [History Last Taken 08/05/22] bisacodyl 10 mg rectal suppository (Dulcolax (bisacodyl)) 10 mg AL DAILY PRN Constipation 08/06/22 [History Last Taken 08/05/22] buspirone 5 mg tablet 5 mg PO BID ANXIETY 08/06/22 [History Last Taken Unknown] cholecalciferol (vitamin D3) 25 mcg (1,000 unit) tablet (Vitamin D3) 25 mcg PO DAILY SUPPLEMENT 08/06/22 [History Last Taken 08/06/22] fluticasone fur. 200 mcg-umeclid 62.5 mcg-vilant 25 mcg inhalat.powder (Trelegy Ellipta) 1 inh inhalation DAILY 08/06/22 [History Last Taken 08/06/22] fluticasone propionate 50 mcg/actuation nasal spray,suspension 1 spray intranasal DAILY ALLERGIES 08/06/22 [History Last Taken 08/06/22] lidocaine 5 % topical ointment 1 applic topical BID GENITAL PAIN 08/06/22 [History Last Taken 08/05/22] methylnaltrexone 150 mg tablet (Relistor) 450 mg PO DAILY CONSTIPATION, OPIOID-INDUCED 08/06/22 [History Last Taken Unknown] ondansetron 4 mg disintegrating tablet 4 mg PO Q8H PRN Nausea 08/06/22 [History Last Taken 08/06/22] polyethylene glycol 3350 17 gram/dose oral powder 17 g PO DAILY PRN Constipation 08/06/22 [History Last Taken 08/06/22] sennosides 8.6 mg tablet (senna) 8.6 mg PO DAILY PRN Constipation 08/06/22 [History Last Taken 08/06/22] enoxaparin 80 mg/0.8 mL subcutaneous syringe 70 mg (0.7 mL) subcut Q12H #8 mL 08/11/22 [Rx Last Taken Unknown] food supplemt, lactose-reduced 0.08 gram-1.5 kcal/mL oral liquid (Ensure Plus High Protein) 120 ml PO 4X/DAY 10 days #40 BOTTLES 08/11/22 [Rx Last Taken Unknown] lidocaine-prilocaine 2.5 %-2.5 % topical cream 1 applic topical ONCE PRN Port access 30 days #30 grams 08/28/22 [Rx Last Taken Unknown] Allergy/AdvReac Type Severity Reaction Status Date / Time oxycodone Allergy Intermediate Unknown Verified 09/07/22 21:25 codeine AdvReac Vomiting Verified 09/07/22 21:25 Family History Mother , Age 78 Diabetes Hypertension Heart disease Alzheimer's dementia Father , Age 57 Asthma CAD (coronary artery disease) Myocardial infarction Brother , 56 Heart disease Ischemic Cancer pancreatic Surgical History History of appendectomy History of cholecystectomy History of coronary artery bypass graft History of endometrial ablation History of tubal ligation Social History Smoking Status: Current every day smoker tobacco type: cigarettes alcohol intake: never substance use type: does not use caffeine: Yes Type: carbonated beverages Number of servings: 12 ROS ROS ED Constitutional Constitutional ED: Reports chills and subjective; Denies fever(s) Eyes Eyes: Denies blurry vision or change in vision ENT ENT ED: Denies rhinorrhea or sore throat Cardiovascular Cardiovascular: Reports chest pain; Denies palpitations Respiratory/Chest Respiratory/Chest: Reports cough, dyspnea and sputum Gastrointestinal Gastrointestinal: Denies nausea or vomiting Genitourinary Genitourinary ED: Denies dysuria or hematuria Musculoskeletal Musculoskeletal: Denies back pain or neck pain Integumentary Denies abscess or rash Neurologic Neurologic: Reports headache(s); Denies weakness Allergic/Immunologic Allergic/Immunologic ED: Denies mouth swelling or urticaria EXAM Physical Exam Const Vital Signs: 09/07/22 21:25 09/07/22 21:35 09/07/22 21:35 Temperature 99.5 F H 99.5 F H Temperature Source Temporal Temporal Pulse Rate 104 H 101 H 104 H Respiratory Rate 20 H 16 20 H Respiratory Effort Respiratory Pattern Blood Pressure 100/63 115/74 100/63 Blood Pressure Mean 75 87 75 Pulse Ox 96 88 96 Oxygen Delivery Method Room Air Room Air Room Air 09/07/22 21:52 09/07/22 22:35 Temperature 99.7 F H Temperature Source Temporal Pulse Rate 93 Respiratory Rate 17 Respiratory Effort Normal Non-Labored Respiratory Pattern Normal Blood Pressure 102/67 Blood Pressure Mean 78 Pulse Ox 97 Oxygen Delivery Method Room Air Positive well nourished and well developed General Appearance ED: well developed and NAD HEENT Reports moist mucous membranes Neck supple and no JVD Resp normal respiratory effort Auscultation: diminished lung sounds diffuse Cardio regular rate and regular rhythm GI normal to inspection, nondistended, normoactive bowel sounds and non-tender Palpation: soft Extremity normal to inspection General Extremety ED: Negative for edema or tenderness General Extremity: Negative for edema Neuro oriented x3, CN's II-XII intact bilaterally and no sensory deficits noted Sensorium / Orientation: alert Motor Exam: strength 5/5 throughout Psych mental status grossly normal Skin no rashes or lesions noted MDM MDM MDM Narrative Medical decision making narrative: Differential diagnosis includes pneumonia, pneumothorax, anemia, cardiac dysrhythmia, cardiac ischemia, and COPD exacerbation. Chest x-ray will be obtained to assess for pneumonia. EKG will be obtained to assess for cardiac dysrhythmia and cardiac ischemia. CBC will be obtained to assess for anemia and leukocytosis. Basic metabolic profile will be obtained to assess for electrolyte abnormality and renal function. High-sensitivity troponin will be obtained to assess for cardiac ischemia. Lab Data Attestation: I reviewed the patient's lab results. Lab results narrative: CBC was reviewed. There is a mild anemia with a hemoglobin of 8.2 and hematocrit 26.8. Labs: Laboratory Results - last 24 hr 09/07/22 09/07/22 22:26 22:26 WBC 8.3 RBC 3.10 L Hgb 8.2 L Hct 26.8 L MCV 86.5 MCH 26.5 L MCHC 30.6 L RDW Std Deviation 49.8 H RDW Coeff of Diana 15.7 H Plt Count 153 MPV 11.0 Immature Gran % (Auto) 0.600 Neut % (Auto) 76.8 H Lymph % (Auto) 10.6 L [place] % (Auto) 8.4 Eos % (Auto) 3.4 Baso % (Auto) 0.2 Absolute Neuts (auto) 6.4 Absolute Lymphs (auto) 0.88 Nucleated RBC % 0 Sodium 137 Potassium 3.7 Chloride 108 H Carbon Dioxide 24.0 Anion Gap 5 BUN 17 Creatinine 0.75 Estim Creat Clear Calc 71.46 Est GFR (MDRD) Af Amer 102 Est GFR (MDRD) Non-Af 84 BUN/Creatinine Ratio 22.7 H Glucose 115 H Calcium 8.9 Troponin I High Sens 5 Radiography Chest X-Ray - ED: 2 View, Read by ED Physician, Read by Radiologist and No Acute Disease Diagnostic Testing: Clinical Impression(s) from Imaging Studies Chest X-Ray 09/07/22 22:30 IMPRESSION: Known left upper lobe malignancy appears slightly decreased size in the interval, with secondary adjacent osseous destruction. Electronically Signed: Ronaldo Orlando MD at 22:46 EDT , PA and lateral chest x-ray was obtained. There are 2 views. On my independent interpretation, lung mercado show a left upper lobe mass that has slightly decreased in size compared to previous x-ray. There is normal cardiac silhouette. Bony thorax is normal. There is no acute process noted. Radiologist also interpreted the x-ray and agrees. EKG Initial EKG: Attestation: I personally reviewed and interpreted this EKG as follows: Interpretation: Sinus Rhythm (93), No Acute Injury Pattern and Non-Specific ST Changes Comments: EKG was obtained. On my independent interpretation, it showed a normal sinus rhythm with occasional PACs with a rate of 93. AL interval and QRS intervals were normal. QTc interval was slightly prolonged at 469 ms. [place] was normal. There are nonspecific ST-T wave changes. Prior EKG tracings: available for review Prior: Unchanged (07/04/2022) Treatment and Re-Evaluation :: Patient was advised of her findings. Patient was reassured that there does not appear to be a pneumonia at this time. Patient was advised that this could be a viral infection. Patient was instructed to continue Tylenol or ibuprofen as needed for any aches or fevers. Patient was instructed to follow-up with her primary care physician and oncologist as scheduled. Patient and family understand and are agreeable with the plan. All questions were answered. 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, Metastasis to bone Instructions: ED Dyspnea Prescriptions: No Action levetiracetam 1,000 mg tablet 1,000 mg PO BID metoprolol succinate 100 mg tablet extended release 24 hr 100 mg PO DAILY dicyclomine 10 mg capsule 10 mg PO 4X/DAY PRN (Reason: Pain Score 1-10/10) citalopram 40 mg tablet 40 mg PO DAILY fentanyl 25 mcg/hr patch 72 hour 1 patch transdermal Q72H lidocaine-prilocaine 2.5-2.5 % cream 1 applic topical ONCE PRN (Reason: Port access) 30 Days Qty: 30 2RF aspirin 81 MG tablet 81 mg PO DAILY@0800 Label Comments: HEART HEALTH nitroglycerin 0.4 MG tablet 0.4 mg sublingual Q5M PRN (Reason: Chest Pain) Label Comments: CHEST PAIN valacyclovir 1 gram tablet 1,000 mg PO DAILY Label Comments: TAKE 1 TABLET BY MOUTH ONCE DAILY FOR 10 DAYS oxycodone-acetaminophen [Percocet] 5-325 mg tablet 1 tab PO Q8H PRN (Reason: pain) 3 Days Qty: 12 0RF buspirone 5 mg tablet 5 mg PO BID Label Comments: Take one (1) tablet by mouth twice a day for anxiety/panic Palliative patient sennosides [senna] 8.6 mg Tablet 8.6 mg PO DAILY PRN (Reason: Constipation) bisacodyl [Dulcolax (bisacodyl)] 10 mg Suppository 10 mg AL DAILY PRN (Reason: Constipation) polyethylene glycol 3350 17 gram/dose powder 17 g PO DAILY PRN (Reason: Constipation) Label Comments: TAKE 17 GM DOSE (ONE SCOOP) MIXED IN 4-8 OZ OF LIQUID ONCE DAILY FOR CONSTIPATION. HOLD FOR DIARRHEA ondansetron 4 mg tablet,disintegrating 4 mg PO Q8H PRN (Reason: Nausea) Label Comments: Place one (1) tablet in mouth and allow to dissolve every 8 hours, as needed nausea/vomiting Palliative patient fluticasone propionate 50 mcg/actuation [place],Suspension 1 spray INTRANASAL DAILY cholecalciferol (vitamin D3) [Vitamin D3] 25 mcg (1,000 unit) Tablet 25 mcg PO DAILY lidocaine 5 % ointment 1 applic topical BID Label Comments: Apply to affected area twice daily as needed (genitalia pain). Relistor 150 mg tablet 450 mg PO DAILY Label Comments: TAKE 3 TABLETS BY MOUTH EVERY MORNING Trelegy Ellipta 200-62.5-25 mcg blister with device 1 inh inhalation DAILY Ensure Plus High Protein 0.08 gram-1.5 kcal/mL Liquid 120 ml PO 4X/DAY 10 Days Qty: 40 0RF enoxaparin 80 mg/0.8 mL syringe 70 mg subcut Q12H Qty: 8 0RF atorvastatin 40 mg tablet 40 mg PO QHS Qty: 90 3RF Primary Care Provider: Joseph Ortiz Referrals: Kenneth Gutierrez MD [Med Staff - Active Staff] - 3-5 Days Joseph Ortiz MD [Primary Care Provider] - 3-5 Days Disposition Disposition: Home, Self Care
[2022-09-07 22:53] LABS: Anion Gap 5 (5-15); BUN 17 mg/dL (7-18); BUN/Creat Ratio 22.7 RATIO (10-20); Calcium,Total 8.9 mg/dL (8.5-10.1); Chloride 108 mmol/L (98-107); Creatinine, Serum 0.75 mg/dL (0.55-1.02); EST Glomerular Filtration Rate 84 mL/min (>60); Est Glom Filt Rate - Afr Amer 102 mL/min (>60); Estimated Creatinine Clearance 71.46 ml/min; Glucose 115 mg/dL (74-106); Potassium 3.7 mmol/L (3.5-5.1); Sodium Level 137 mmol/L (136-145); Troponin-I HS 5 pg/mL (3.0-54.0)
[2022-09-07 23:45] VITALS: BP 135/69; PULSE 63; RESP 18; O2SAT 92
== END 2022-09-07 23:46 | disposition home or self-care (01) ==
PROVIDERS: Emergency Provider Emergency Medicine; PCP Internal Medicine; Visit Provider Emergency Medicine
DX: R05.9 Cough, unspecified (principal); C79.51 Secondary malignant neoplasm of bone; C34.92 Malignant neoplasm of unspecified part of left bronchus or lung; R51.9 Headache, unspecified; I25.10 Atherosclerotic heart disease of native coronary artery without angina pectoris; I10 Essential (primary) hypertension; E78.5 Hyperlipidemia, unspecified; F17.210 Nicotine dependence, cigarettes, uncomplicated; Z79.82 Long term (current) use of aspirin; Z79.899 Other long term (current) drug therapy; Z95.1 Presence of aortocoronary bypass graft
CPT/HCPCS: 71046; 80048; 84484; 85025; 93005; 99285

== ENCOUNTER 2022-09-12 11:37 | Emergency (ER) | payer MEDICARE, MEDICAID, SELFPAY ==
[2022-09-12 11:39] VITALS: BP 95/64; PULSE 109; RESP 18; TEMP 37.3; O2SAT 98; BMI 25.5
--- NOTE | 2022-09-12 12:41 | EKG12_ITS ---
Test Reason : SIDE PAIN Blood Pressure : / mmHG Vent. Rate : 099 BPM Atrial Rate : 099 BPM P-R Int : 132 ms QRS Dur : 076 ms QT Int : 358 ms P-R-T Axes : 024 060 078 degrees QTc Int : 459 ms Normal sinus rhythm Nonspecific ST and T wave abnormality Abnormal ECG Confirmed by FABRIZIO NEWSOME, KAREL ([id number]), editorial director TORSTEN JOHN ([id number]) on 09/14/2022 8:50:34 AM Referred By: DALTON Confirmed By:KAREL DINH MD
--- NOTE | 2022-09-12 12:41 | CT_ITS ---
INDICATION: chest wall pain, lung CA EXAMINATION: CT CHEST WITH CONTRAST - CT Chest W/ Contrast Injection TECHNIQUE: Helically acquired images were obtained of the chest following IV contrast. A radiation dose optimization technique was used for this scan. IV Contrast dosage and agent: COMPARISON: 08/06/2022 CT scan chest patient with known history of chest pathology. FINDINGS: LUNGS, PLEURA AND LARGE AIRWAYS: There is a persistent left-sided pleural-based mass with erosive lesion into the left third fourth and fifth ribs. This mass measures 5.4 x 3.1 cm in axial view. This is decreased in size since prior study when it measured approximately 5 x 3.7 cm. Also had an air-fluid level suggesting necrosis. In the left lower lobe is visualized pleural thickening in the visualized mass bordering the chest wall both on the pleural side and the extrapleural side with erosive extension through the rib left rib 8 and 9. Again noted is a mass in the left hilum splaying the pulmonary arteries. This measures approximately 2.3 x 2.2 cm reduced in size compared to prior study when it measured 3.3 x 2.7 cm. There is a reduction in the size of the AP window lymph node now measures 1.8 x 0.9 cm down from measured 2.4 x 2.2 cm. There is a pattern of underlying emphysematous change throughout the lungs. There is a minimal focus of left pleural thickening and/or effusion within the left lung base similar to prior study. THYROID: No thyroid lesions. HEART AND PERICARDIUM: Sternotomy wires are seen midline. There is borderline cardiac enlargement. There is minimal coronary calcification. No pericardial effusion. VESSELS: Aorta is tortuous and minimally calcified. No aortic dissection. No visualized pulmonary embolism however there is a slightly effaced appearance of the vessels in the left side hilum and what appears to be possible mucoid thickening of the upper lobe bronchial structures. MEDIASTINUM AND LANNY: There is a stable appearance of the subcarinal soft tissues with a subcentimeter lymph node. Esophagus is unremarkable. No hiatal hernia. UPPER ABDOMEN: At the timing of this study there is a subtle focus of low attenuation within the right hepatic lobe that may measure up to 4.6 x 2.8 cm. This is not as well demonstrated on the prior study July 25, 2022 and could potentially be artifactual the liver is partially visualized on this study. There is inhomogeneous appearance of the spleen which appears enlarged when compared to the prior study PET scan July 25, 2022. In addition there is a large necrotic appearing adrenal gland measuring 5.4 x 3.1 cm which is markedly enlarged since prior study August 06, 2022 CT angiogram chest. There is a small low attenuating nodule within the right adrenal gland on the prior study it measured 1.5 x 1.2 cm. BONES: The visualized bony osteopenia within the thoracic spine. Sternotomy wires are seen midline. CT/Chest WITH Contrast IMPRESSION: Persistent erosive lesions within the left upper chest left lower chest as detailed above invading the left-sided ribs and soft tissues of the left chest. Persistent slightly improved pathology within the left hilum and mediastinum. However there is interval enlargement of the right adrenal mass measuring 5.4 x 2.1 cm highly suspicious for worsening metastatic disease. In addition there is a vague low attenuation within the right hepatic lobe which may represent interval development of hepatic metastasis. The evaluation is recommended with a CT scan PET/CT and/or potentially CT abdomen and pelvis with IV contrast. This is superimposed on a pattern of underlying emphysematous change. Electronically Signed: Vannessa Boston MD at 14:35 EDT ,
[2022-09-12 12:57] LABS: Absolute Lymphocyte Count 1.14 X10^3/uL (0.83-4.51); Absolute Neutrophil Count 9.8 X10^3/uL (2.0-7.7); Basophil# 0.05 X10^3/uL; Basophil% 0.4 % (0-1); Eosinophil# 0.18 X10^3/uL; Eosinophils% 1.5 % (0-5); Hematocrit 30.9 % (37-47); Hemoglobin 8.9 g/dL (12.0-15.0); Lymphocyte # 1.14 X10^3/ul (0.83-4.51); Lymphocyte % 9.4 % (19-41); Mean Corp Hgb Conc 28.8 g/dL (32-36); Mean Corpuscular Hgb 25.4 pg (27.0-32.0); Mean Platelet Vol. 12.3 fl (6.2-12.0); Monocyte# 0.79 X10^3/uL; Monocyte% 6.5 % (0-10); NRBC Flagged by Analyzer 0 % (0-5); Neutrophil # 9.84 X10^3/uL (2.7-7.7); Neutrophil % 81.5 % (47-70); Platelet Count 262 K/mm3 (150-450); RBC Distribution Width CV 15.8 % (11.6-14.6); RBC Distribution Width SD 50.4 fl (35.1-43.9); Red Blood Count 3.51 M/mm3 (4.2-5.4); White Blood Count 12.1 K/mm3 (4.4-11.0)
[2022-09-12] MEDS: fentaNYL 100 MCG/2 ML Ampul 25 MCG IV (13:06)
[2022-09-12] MEDS: 0.9% Normal Saline 1,000 ML 150 ML IV (13:06)
[2022-09-12] MEDS: Ondansetron 4 MG/2 ML Vial IV (13:06)
[2022-09-12 13:19] LABS: Anion Gap 3 (5-15); BUN 19 mg/dL (7-18); BUN/Creat Ratio 21.6 RATIO (10-20); Calcium,Total 9.1 mg/dL (8.5-10.1); Chloride 110 mmol/L (98-107); Creatinine, Serum 0.88 mg/dL (0.55-1.02); EST Glomerular Filtration Rate 70 mL/min (>60); Est Glom Filt Rate - Afr Amer 85 mL/min (>60); Estimated Creatinine Clearance 60.91 ml/min; Glucose 94 mg/dL (74-106); Potassium 3.7 mmol/L (3.5-5.1); Sodium Level 138 mmol/L (136-145); Troponin-I HS 4 pg/mL (3.0-54.0)
[2022-09-12 13:44] VITALS: BP 94/59; PULSE 91; RESP 18; O2SAT 97
--- NOTE | 2022-09-12 14:22 | EDS_ITS ---
HPI History of Present Illness Chief Complaint: Chest Other Detail of Chief Complaint: Left chest/rib pain Informant: patient Onset/Context/Timing Onset: Days Context: Gradual Onset Timing: Waxes and wanes Narrative Narrative: Patient presents with left-sided chest pain with cough. Patient has a history of lung cancer. She has reportedly completed radiation and is set to start immune suppression this week. Family states that she was told her bones were too brittle for chemotherapy. Patient states that she got a cough 3 to 4 days ago and several members of her family had a cold. She was seen in the ER recently had a chest x-ray that did not show evidence of infiltrate. Patient presents with left-sided rib pain, worse when she coughs. Daughter thought she felt a lump in that area. Patient has not had fever or chills. She has had nausea and family states has not really been able to keep anything down. PFSH PFSH Medical History Atherosclerosis of coronary artery of [place] heart without angina pectoris Chronic back pain Collagenous colitis DDD (degenerative disc disease), lumbar Depression with anxiety Encounter for education Essential hypertension Hyperlipidemia Metastasis to adrenal gland Metastatic primary lung cancer Regional lymph node metastasis present Seizures Syncope and collapse Tobacco use Home Medications aspirin 81 mg tablet,delayed release 81 mg PO DAILY@0800 06/07/13 [History Last Taken 08/06/22] nitroglycerin 0.4 mg sublingual tablet 0.4 mg sublingual Q5M PRN Chest Pain 06/07/13 [History Last Taken 07/31/16] citalopram 40 mg tablet 40 mg PO DAILY 12/12/18 [History Last Taken 08/06/22] dicyclomine 10 mg capsule 10 mg PO 4X/DAY PRN Pain Score 1-01/3012/12/18 [History Last Taken 08/01/22] levetiracetam 1,000 mg tablet 1,000 mg PO BID 12/12/18 [History Last Taken 08/06/22] metoprolol succinate 100 mg tablet,extended release 24 hr 100 mg PO DAILY 12/12/18 [History Last Taken 08/06/22] atorvastatin 40 mg tablet 40 mg PO QHS #90 tabs 01/20/19 [Rx Last Taken 08/05/22] valacyclovir 1 gram tablet 1,000 mg PO DAILY 06/17/22 [History Last Taken 08/06/22] oxycodone-acetaminophen 5 mg-325 mg tablet (Percocet) 1 tab PO Q8H PRN pain 3 days #12 tabs 07/04/22 [Rx Last Taken 08/06/22] fentanyl 25 mcg/hr transdermal patch 1 patch transdermal Q72H 07/20/22 [History Last Taken 08/05/22] bisacodyl 10 mg rectal suppository (Dulcolax (bisacodyl)) 10 mg MI DAILY PRN Constipation 08/06/22 [History Last Taken 08/05/22] buspirone 5 mg tablet 5 mg PO BID ANXIETY 08/06/22 [History Last Taken Unknown] cholecalciferol (vitamin D3) 25 mcg (1,000 unit) tablet (Vitamin D3) 25 mcg PO DAILY SUPPLEMENT 08/06/22 [History Last Taken 08/06/22] fluticasone fur. 200 mcg-umeclid 62.5 mcg-vilant 25 mcg inhalat.powder (Trelegy Ellipta) 1 inh inhalation DAILY 08/06/22 [History Last Taken 08/06/22] fluticasone propionate 50 mcg/actuation nasal spray,suspension 1 spray intranasal DAILY ALLERGIES 08/06/22 [History Last Taken 08/06/22] lidocaine 5 % topical ointment 1 applic topical BID GENITAL PAIN 08/06/22 [History Last Taken 08/05/22] methylnaltrexone 150 mg tablet (Relistor) 450 mg PO DAILY CONSTIPATION, OPIOID- INDUCED 08/06/22 [History Last Taken Unknown] ondansetron 4 mg disintegrating tablet 4 mg PO Q8H PRN Nausea 08/06/22 [History Last Taken 08/06/22] polyethylene glycol 3350 17 gram/dose oral powder 17 g PO DAILY PRN Constipation 08/06/22 [History Last Taken 08/06/22] sennosides 8.6 mg tablet (senna) 8.6 mg PO DAILY PRN Constipation 08/06/22 [History Last Taken 08/06/22] enoxaparin 80 mg/0.8 mL subcutaneous syringe 70 mg (0.7 mL) subcut Q12H #8 mL 08/11/22 [Rx Last Taken Unknown] food supplemt, lactose-reduced 0.08 gram-1.5 kcal/mL oral liquid (Ensure Plus High Protein) 120 ml PO 4X/DAY 10 days #40 BOTTLES 08/11/22 [Rx Last Taken Unknown] lidocaine-prilocaine 2.5 %-2.5 % topical cream 1 applic topical ONCE PRN Port access 30 days #30 grams 08/28/22 [Rx Last Taken Unknown] doxycycline monohydrate 100 mg capsule 100 mg PO BID #20 CAPSULES 09/12/22 [Rx Last Taken Unknown] fentanyl 75 mcg/hr transdermal patch 1 patch transdermal Q72H 15 days #5 ea 09/12/22 [Rx Last Taken Unknown] ondansetron 4 mg disintegrating tablet 4 mg PO Q8H PRN PRN Nausea #10 tabs 09/12/22 [Rx Last Taken Unknown] Allergy/AdvReac Type Severity Reaction Status Date / Time oxycodone Allergy Intermediate Unknown Verified 09/12/22 11:37 codeine AdvReac Vomiting Verified 09/12/22 11:37 Family History Mother , Age 78 Diabetes Hypertension Heart disease Alzheimer's dementia Father , Age 57 Asthma CAD (coronary artery disease) Myocardial infarction Brother , 56 Heart disease Ischemic Cancer pancreatic Surgical History History of appendectomy History of cholecystectomy History of coronary artery bypass graft History of endometrial ablation History of tubal ligation Social History Smoking Status: Current every day smoker tobacco type: cigarettes alcohol intake: never substance use type: does not use caffeine: Yes Type: carbonated beverages Number of servings: 12 ROS ROS ED Constitutional Constitutional ED: Denies chills or fever(s) Eyes Eyes: Denies change in vision or discharge from eye(s) ENT ENT ED: Denies discharge from eye(s), rhinorrhea or sore throat Cardiovascular Cardiovascular: Reports chest pain; Denies palpitations Respiratory/Chest Respiratory/Chest: Reports cough; Denies dyspnea Gastrointestinal Gastrointestinal: Reports nausea and vomiting; Denies abdominal pain Genitourinary Genitourinary ED: Denies dysuria Musculoskeletal Musculoskeletal: Denies back pain or extremity pain Integumentary Denies Abrasions or rash Neurologic Neurologic: Denies headache(s) or weakness Psychiatric Psychiatric: Denies anxiety or depression Allergic/Immunologic Allergic/Immunologic ED: Denies lip swelling or urticaria EXAM Physical Exam Const Vital Signs: 09/12/22 11:39 09/12/22 13:44 Temperature 99.1 F Temperature Source Oral Pulse Rate 109 H 91 Respiratory Rate 18 18 Blood Pressure 95/64 94/59 L Blood Pressure Mean 74 70 Pulse Ox 98 97 Oxygen Delivery Method Nasal Cannula Room Air Oxygen Flow Rate (L/min) 3 Positive well nourished and well developed General Appearance ED: well developed HEENT Reports normocephalic and head/scalp atraumatic Eyes PERRL and EOMs intact bilaterally Neck supple Chest Wall inspection of chest normal Chest Narrative: Mild tenderness to the left anterolateral chest wall. No overlying skin changes. No palpable mass. Resp normal respiratory effort and clear to auscultation bilaterally Cardio regular rate and regular rhythm GI normal to inspection, nondistended, normoactive bowel sounds Palpation: soft Extremity normal to inspection Neuro oriented x3 and no sensory deficits noted Sensorium / Orientation: alert Motor Exam: strength 5/5 throughout Psych mental status grossly normal Skin no rashes or lesions noted MDM MDM MDM Narrative Medical decision making narrative: Patient placed on surveillance monitor. Patient given fentanyl and Zofran for pain and nausea. IV fluids initiated. Labwork obtained to evaluate for leukocytosis, anemia, and electrolyte derangement. CT scan of the chest with IV contrast obtained. Lab Data Labs: Laboratory Results - last 24 hr 09/12/22 09/12/22 11:24 11:24 WBC 12.1 H RBC 3.51 L Hgb 8.9 L Hct 30.9 L MCV 88.0 MCH 25.4 L MCHC 28.8 L D RDW Std Deviation 50.4 H RDW Coeff of Diana 15.8 H Plt Count 262 MPV 12.3 H Immature Gran % (Auto) 0.700 Neut % (Auto) 81.5 H Lymph % (Auto) 9.4 L [place] % (Auto) 6.5 Eos % (Auto) 1.5 Baso % (Auto) 0.4 Absolute Neuts (auto) 9.8 H Absolute Lymphs (auto) 1.14 Nucleated RBC % 0 Sodium 138 Potassium 3.7 Chloride 110 H Carbon Dioxide 25.0 Anion Gap 3 L BUN 19 H Creatinine 0.88 Estim Creat Clear Calc 60.91 Est GFR (MDRD) Af Amer 85 Est GFR (MDRD) Non-Af 70 BUN/Creatinine Ratio 21.6 H Glucose 94 Calcium 9.1 Troponin I High Sens 4 Radiography Diagnostic Testing: Clinical Impression(s) from Imaging Studies Chest CT 09/12/22 12:41 IMPRESSION: Persistent erosive lesions within the left upper chest left lower chest as detailed above invading the left-sided ribs and soft tissues of the left chest. Persistent slightly improved pathology within the left hilum and mediastinum. However there is interval enlargement of the right adrenal mass measuring 5.4 x 2.1 cm highly suspicious for worsening metastatic disease. In addition there is a vague low attenuation within the right hepatic lobe which may represent interval development of hepatic metastasis. The evaluation is recommended with a CT scan PET/CT and/or potentially CT abdomen and pelvis with IV contrast. This is superimposed on a pattern of underlying emphysematous change. Electronically Signed: Vannessa Boston MD at 14:35 EDT Reading Location ID and State: [facility] / [place] Tel , Service support , EKG Initial EKG: Attestation: I personally reviewed and interpreted this EKG as follows: Interpretation: Sinus Rhythm (Sinus at 99 with chronic changes, no significant change when compared to prior study from 09/07/2022. No evidence of acute ischemia.) Treatment and Re-Evaluation :: CBC was a white count of 12.1 with a hemoglobin of 8.9. This is consistent with her prior anemia. Chemistry studies unremarkable. Troponin is normal at 4. CT of the chest with IV contrast obtained. She has persistent erosive lesions in the left upper chest and left lower chest that invade the left-sided ribs and chest wall. The mass of the left hilum does appear slightly improved, however there is interval enlargement of the right adrenal mass. There is a questionable mass in the liver that is not well visualized on the study. On repeat evaluation patient does feel improved with fentanyl and Zofran. She is tolerating p.o. fluids without difficulty. I did speak with Dr. Mueller, her pain management doctor. He would like us to increase her fentanyl patch from 50 mcg to 75. Patient be given a prescription for this along with Zofran and doxycycline for bronchitis. Discharge Plan Triage Chief Complaint: Chest Other ED Provider: Snow Salazar Dx/Rx/DC Orders Clinical Impression: Chest wall pain, Lung cancer, Vomiting Instructions: ED Chest Pain, Noncardiac, ED Upper Resp Infec Abx Tx, ED Vomiting (Adult) Prescriptions: New doxycycline monohydrate 100 mg capsule 100 mg PO BID Qty: 20 0RF ondansetron 4 mg tablet,disintegrating 4 mg PO Q8H PRN PRN (Reason: Nausea) Qty: 10 0RF fentanyl 75 mcg/hr patch 72 hour 1 patch transdermal Q72H 15 Days Qty: 5 0RF No Action levetiracetam 1,000 mg tablet 1,000 mg PO BID metoprolol succinate 100 mg tablet extended release 24 hr 100 mg PO DAILY dicyclomine 10 mg capsule 10 mg PO 4X/DAY PRN (Reason: Pain Score 1-10/10) citalopram 40 mg tablet 40 mg PO DAILY fentanyl 25 mcg/hr patch 72 hour 1 patch transdermal Q72H lidocaine-prilocaine 2.5-2.5 % cream 1 applic topical ONCE PRN (Reason: Port access) 30 Days Qty: 30 2RF aspirin 81 MG tablet 81 mg PO DAILY@0800 Label Comments: HEART HEALTH nitroglycerin 0.4 MG tablet 0.4 mg sublingual Q5M PRN (Reason: Chest Pain) Label Comments: CHEST PAIN valacyclovir 1 gram tablet 1,000 mg PO DAILY Label Comments: TAKE 1 TABLET BY MOUTH ONCE DAILY FOR 10 DAYS oxycodone-acetaminophen [Percocet] 5-325 mg tablet 1 tab PO Q8H PRN (Reason: pain) 3 Days Qty: 12 0RF buspirone 5 mg tablet 5 mg PO BID Label Comments: Take one (1) tablet by mouth twice a day for anxiety/panic Palliative patient sennosides [senna] 8.6 mg Tablet 8.6 mg PO DAILY PRN (Reason: Constipation) bisacodyl [Dulcolax (bisacodyl)] 10 mg Suppository 10 mg MI DAILY PRN (Reason: Constipation) polyethylene glycol 3350 17 gram/dose powder 17 g PO DAILY PRN (Reason: Constipation) Label Comments: TAKE 17 GM DOSE (ONE SCOOP) MIXED IN 4-8 OZ OF LIQUID ONCE DAILY FOR CONSTIPATION. HOLD FOR DIARRHEA ondansetron 4 mg tablet,disintegrating 4 mg PO Q8H PRN (Reason: Nausea) Label Comments: Place one (1) tablet in mouth and allow to dissolve every 8 hours, as needed nausea/vomiting Palliative patient fluticasone propionate 50 mcg/actuation [place],Suspension 1 spray INTRANASAL DAILY cholecalciferol (vitamin D3) [Vitamin D3] 25 mcg (1,000 unit) Tablet 25 mcg PO DAILY lidocaine 5 % ointment 1 applic topical BID Label Comments: Apply to affected area twice daily as needed (genitalia pain). Relistor 150 mg tablet 450 mg PO DAILY Label Comments: TAKE 3 TABLETS BY MOUTH EVERY MORNING Trelegy Ellipta 200-62.5-25 mcg blister with device 1 inh inhalation DAILY Ensure Plus High Protein 0.08 gram-1.5 kcal/mL Liquid 120 ml PO 4X/DAY 10 Days Qty: 40 0RF enoxaparin 80 mg/0.8 mL syringe 70 mg subcut Q12H Qty: 8 0RF atorvastatin 40 mg tablet 40 mg PO QHS Qty: 90 3RF Primary Care Provider: Joseph Ortiz Referrals: Joseph Ortiz MD [Primary Care Provider] - Activity Restrictions/Additional Instructions: Follow-up with the cancer center on as scheduled. Please follow-up Dr. Mueller within the next 2 weeks. Disposition Disposition: Home, Self Care
== END 2022-09-12 15:38 | disposition home or self-care (01) ==
PROVIDERS: Emergency Provider Emergency Medicine; PCP Internal Medicine; Visit Provider Emergency Medicine
DX: R07.89 Other chest pain (principal); C34.90 Malignant neoplasm of unspecified part of unspecified bronchus or lung; R11.2 Nausea with vomiting, unspecified; I25.10 Atherosclerotic heart disease of native coronary artery without angina pectoris; E78.5 Hyperlipidemia, unspecified; I10 Essential (primary) hypertension; M54.9 Dorsalgia, unspecified; G89.29 Other chronic pain; F17.210 Nicotine dependence, cigarettes, uncomplicated; Z92.3 Personal history of irradiation; Z79.82 Long term (current) use of aspirin; Z79.899 Other long term (current) drug therapy; Z95.1 Presence of aortocoronary bypass graft
CPT/HCPCS: 71260; 80048; 84484; 85025; 93005; 96361; 96374; 96375; 99285; Q9967; A4216; J2405